=== PATIENT | male | born 1955 | race Caucasian/White ===

== ENCOUNTER 2019-08-06 07:35 | Day surgery (SDC) | payer OTHER, SELFPAY ==
[2019-08-06 08:10] VITALS: BP 146/73; PULSE 60; RESP 15; TEMP 36.6; O2SAT 97; BMI 35.9
[2019-08-06] MEDS: Lactated Ringers 1,000 ML 30 ML IV (08:28)
[2019-08-06] MEDS: Tetracaine 0.5% Ophthalmic Bottle 1 DRP OP (09:35)
[2019-08-06] MEDS: Povidone Iodine 30 ML Opthalmic Sol 1 DRP (09:35)
--- NOTE | 2019-08-06 10:08 | PCM.DC.CATCL ---
Allergies/Adverse Reactions: Allergies Sulfa (Sulfonamide Antibiotics) Allergy (Verified 08/06/19 08:10) PT NOT SURE Medications to take at Discharge Allopurinol [Zyloprim] 100 mg PO DAILYCM 07/12/16 Iron Carbonyl [Feosol] 65 mg PO DAILYCM 07/12/16 Levothyroxine [Synthroid] 125 mcg PO DAILY 07/12/16 Multivitamin [Daily Multiple Vitamin] 1 each PO DAILY 07/12/16 Sertraline HCl [Zoloft] 50 mg PO DAILY 07/12/16 Warfarin [Coumadin (PBKC)] 5 mg PO DAILY 07/12/16 Cataract Instructions: -Take a pain reliever such as Tylenol, Aspirin or Ibuprofen if needed for eye aching or pain. If this is not enough relief for you pain, call your doctor (or the doctor airconditioning plant operator), even at night. -You are scheduled for a follow-up appointment at [facility] the day after surgery. You should have someone drive you. -Transient pain and irritation are due to the incision that was made at the time of surgery and do not indicate any trouble. Our office numbers are . If there is no answer, or if it is after our normal business hours, call your surgeon. My home phone number is: Dr. Annabel Monahan INSTRUCTIONS FOLLOWING TOPICAL ANESTHETIC CATARACT SURGERY Protect operated eye with glasses or metal shield at all times. Instill one drop of Polytrim (or other antibiotic drop), one drop of Prednisolone and one drop of Acular in the operated eye four times a day (breakfast, lunch, dinner, and bedtime) until the doctor tells you to quit or decrease them. Wait 3-5 minutes between each drop. Please begin these immediately upon arriving at home. if your surgery is in t he afternoon, try to use the drops at least three more times the day of surgery and again the following morning before your appointment. INSTRUCTIONS FOLLOWING RETROBULBAR CATARACT SURGERY Keep the eye patch and metal shield on until you see your surgeon the day after surgery - these will be removed in the office that day. Do not drive while the patch is on your eye. You will be instructed about the use of drops for the operated eye at that visit. Primary Care Physician: Shekhar Williamson [Primary Care Provider] -
[2019-08-06 10:12] VITALS: BP 140/77; BP 146/73; PULSE 60; RESP 15; TEMP 36.2; O2SAT 97
[2019-08-06 10:15] VITALS: BP 138/78; BP 146/73; PULSE 60; RESP 15; O2SAT 95
[2019-08-06 10:20] VITALS: BP 141/79; BP 146/73; PULSE 60; RESP 15; O2SAT 95
[2019-08-06 10:24] VITALS: BP 122/71; BP 146/73; PULSE 60; RESP 15; TEMP 36.2; O2SAT 96
--- NOTE | 2019-08-06 10:27 | PCM.OPRPT ---
Report of Operation Date of Procedure: 08/06/19 Pre-Operative Diagnosis: Cataract Left Eye Post-Operative Diagnosis: same Surgery/Procedure Performed:: PEM IOL OS Description of Surgical Findings:: cataract Type of Anesthesia:: MAC and Topical Anesth Estimated Blood Loss (mL): none Description of Procedure: Indications for Procedure: 64 yo male with history of worsening vision in the left eye secondary to cataract. After discussion of the risks, benefit, alternatives, of cataract surgery the patient agreed to proceed. Description of Procedure: The patient was brought to the operating room where a time out was performed prior to the start of the procedure. Anesthesia team induced light sedation. The eye was prepped and draped in the normal sterile fashion for eye surgery. A brian blade was used to create a paracentesis incision. Preservative free lidocaine, followed by viscoat was instilled into the anterior chamber. A keratome was used to create a clear corneal biplanar incision at the temporal limbus. A cystotome was used to begin the capsulorhexis which was completed in a continuous curvilenear fashion with forceps. BSS on a patel cannula was used to hydrate beneath the lens capsule until the lens was noted to be freely mobile in the capsular bag. Phacoemulsification was used to remove the lens in a divide and conquer technique. The remaining cortical material was removed using irrigation and aspiration. The capsular bag was noted to be intact. provisc was used to inflate the capsular bag and a tecnis 19.5 diopter lens was placed into the capsular bag and adjusted using a mohit hook. The remaining viscoelastic was removed. The wounds were hydrated and noted to be watertight with a weck cell sponge. The patient was taken to the recovery room with instructions to follow up in the clinic the following day. - Complications none - Admit VTE Documentation Reason prophylaxis not ordered:: Procedure Not Indicated
[2019-08-06 11:00] VITALS: BP 146/73
== END 2019-08-06 11:00 | disposition home or self-care (01) ==
LOC: SDC 07:36 → AC 07:38
PROVIDERS: Family Provider Family Medicine; PCP Family Medicine; Referring Provider Ophthalmology; Visit Provider Ophthalmology
PROC: (CPT 66982; principal; 2019-08-06 09:20)
DX: H25.812 Combined forms of age-related cataract, left eye (principal); E11.9 Type 2 diabetes mellitus without complications; D64.9 Anemia, unspecified; F32.9 Major depressive disorder, single episode, unspecified; E06.9 Thyroiditis, unspecified; Z87.448 Personal history of other diseases of urinary system; Z87.891 Personal history of nicotine dependence; Z79.01 Long term (current) use of anticoagulants; Z79.899 Other long term (current) drug therapy
CPT/HCPCS: 66982; J7120

== ENCOUNTER → 2019-11-01 10:19 | Outpatient (CLI) | payer OTHER, SELFPAY ==
[2019-10-28 09:36] VITALS: BMI 38.6
[2019-11-01 11:14] LABS: Creat.Clear Total Volume 1450 mL
[2019-11-01 11:15] LABS: 24 Hour Urine Protein 1171.6 mg/24HR (<150 MG/24HR); 24HR. UA Prot. Total Volume 1450 mL; Creatinine Urine 93.3 mg/dL (NO RANGE EST.); Urine Protein (24 Hour) 80.8 mg/dL (<11.9)
[2019-11-01 11:16] LABS: 24H Urine Creat. Total Vol. 1.45 L; 24HR. Urine Creatinine 1.35 g/24 HR (0.90-2.10)
[2019-11-01 13:03] LABS: Creatinine, Serum 6.12 mg/dL (0.70-1.30); EST Glomerular Filtration Rate 10 mL/min (>60); Est Glom Filt Rate - Afr Amer 12 mL/min (>60)
[2019-11-01 13:22] LABS: Creatinine Clearance 15 ml/min (100-200); Creatinine Serum Creat 6.1 mg/dL (0.8-1.3); EST Glomerular Filtration Rate 10 mL/min (>60); Est Glom Filt Rate - Afr Amer 10 mL/min (>60)
[2019-11-04 14:08] LABS: Albumin, Ur 35.5 % (.); Alpha-1-Globulin, Ur 1.7 % (.); Beta Globulin, Ur 15.3 % (.); Gamma Globulin, Ur 39.5 % (.); Protein, 24Ur 784 mg/24 hr (30-150); Total Protein, Ur 54.1 mg/dL (Not Estab.)
[2019-11-04 20:34] LABS: M-Spike, Ur % Comment: % (Not Observed)
== END ==
PROVIDERS: PCP Family Medicine; Visit Provider Internal Medicine Hematology & Oncology
DX: C90.00 Multiple myeloma not having achieved remission (principal); D47.2 Monoclonal gammopathy; D64.9 Anemia, unspecified
CPT/HCPCS: 36415; 81050; 82565; 82570; 82575; 84156; 84166; 86335

== ENCOUNTER → 2019-11-03 14:11 | Outpatient (CLI) | payer OTHER, SELFPAY ==
[2019-10-28 09:36] VITALS: BMI 38.6
--- NOTE | 2019-11-03 14:20 | RAD_ITS ---
STUDY: X-RAY BONE SURVEY COMPLETE REASON FOR EXAM: Male, 64 years old. SUSPECT MYELOMA TECHNIQUE: One view of each long bone, 1 view of the hips and pelvis, 2 views lumbar spine, 2 views thoracic spine, 2 views cervical spine, 2 view skull, one view chest, 1 view abdomen. COMPARISON: None. FINDINGS: CHEST: The lungs are clear and expanded. Bilateral pleural thickening or access pleural fat. Cardiomegaly status post prior midline sternotomy. Right atrial and ventricular pacemaker leads present. Broad fatty mediastinum. Pulmonary venous congestion. Normal visualized aortic arch and descending thoracic aorta. Normal visualized ribs, clavicles, and shoulders. There is no demonstrated abnormality of the visualized soft tissue structures of the upper abdomen. PELVIS: There is a non-specific bowel gas pattern. Vascular calcifications. Degenerative changes of the sacroiliac joints. Normal visualized bilateral superior and inferior pubic rami. Normal pubic symphysis. Normal ischial tuberosities. Normal visualized right femoral head. Normal right acetabulum. There is mild articular joint space narrowing of the right hip. Normal visualized left femoral head. Normal left acetabulum. There is moderate articular joint space narrowing of the left hip. CERVICAL SPINE: Normal anterior atlantoaxial articulation. Normal odontoid process. Normal cervical lordosis. Normal vertebral bodies and endplates. Degenerative disc narrowing and spondylitic endplate changes at all cervical levels C2-C7. Negative for osteolytic or blastic bone lesion. The soft tissue structures are unremarkable. THORACIC SPINE: Normal kyphosis of the thoracic spine. There is no substantial scoliosis. Normal thoracic vertebrae and endplates. Diffuse moderate degenerative disc changes. The soft tissue structures are unremarkable. LUMBAR SPINE: There is straightening of the normal lumbar lordosis. There is no substantial scoliosis. Diffuse moderate degenerative disc narrowing and extensive spondylitic endplate changes at lumbar levels. The soft tissue structures are unremarkable. RIGHT FEMUR: Prior healed mid to distal diaphyseal fracture of the femur. No acute fracture deformity. Hypertrophic degenerative changes of the greater trochanter. Degenerative changes of the knee. Negative for osteolytic or blastic bone lesion. Normal right tibia and fibula. LEFT FEMUR: Normal visualized femur. Normal visualized soft tissue structure. Negative for osteolytic or blastic bone lesion. Normal left tibia and fibula. RIGHT HUMERUS :Normal visualized humerus. There is no demonstrated fracture or osseous destructive process. Normal right forearm. There is no demonstrated soft tissue abnormality. LEFT HUMERUS:Normal visualized humerus. There is no demonstrated fracture or osseous destructive process. Normal left forearm. There is no demonstrated soft tissue abnormality. SKULL: There is no demonstrated soft tissue swelling. Normal osseous calvarium. Negative for osteolytic or blastic bone lesion. Normal visualized facial bones. Normal visualized paranasal sinuses. RAD/Bone Survey Comp(Axial&Append) IMPRESSION: Negative for osteolytic or blastic bone lesion. Degenerative changes as stated above. Old right femur fracture healed. Electronically Signed: Marilyn Thornton MD at 21:37 EST , Service support ,
== END ==
PROVIDERS: PCP Family Medicine; Visit Provider Internal Medicine Hematology & Oncology
DX: D47.2 Monoclonal gammopathy (principal); D64.9 Anemia, unspecified; R89.9 Unspecified abnormal finding in specimens from other organs, systems and tissues
CPT/HCPCS: 77075

== ENCOUNTER → 2019-11-09 07:40 | Outpatient (CLI) | payer OTHER, SELFPAY ==
[2019-10-28 09:36] VITALS: BMI 38.6
[2019-11-09] VITALS (9 sets, daily range): BP systolic 128–176; BP diastolic 68–91; PULSE 60–62; RESP 14–16; TEMP 36.4; O2SAT 93–99; BMI 36.9
--- NOTE | 2019-11-09 | IMM_PTH ---
PATIENT: MACARENA BARRETT LOC: CT U#:[id number] AGE/SX: 70/M ROOM: RE11/09/[address]: Dr. Charis Worthy MD : 1955 BED: DIS: SPEC #: [id number] RECD: 11/10/19 14:04 STATUS: ANASTACIO REJuan #: [id number] COY: 11/09/19 00:[address]: Charis Worthy DEPT: IMMUNOHISTOCHEMISTRY RECD BY: Fidelina Bryant ENTERED: 11/10/19 14:05 SP TYPE: IMMUNO OTHR DR: Dr. Shekhar Williamson MD Tissues: A - Bone marrow of iliac crest B - Bone marrow of iliac crest Procedures: CD138 (initial) KAPPA (add) LAMBDA (add) PHYSICIAN & INSTITUTION [place] [id number] SPECIMEN INFORMATION: Tissue Source: A - Bone marrow biopsy, core, B - Bone marrow biopsy, clot Clinical Info: IGA-L, MGUS Specimen Number: [id number] A & B CPT code: 40332 x2, 63766 x4 METHODOLOGY: Deparaffinized sections of prefer/formalin-fixed tissue or PAP/DQ stained slides are incubated with monoclonal/polyclonal antibodies/oligonucleotide probes. Localization is made via biotin free immunoperoxidase method. Appropriate controls are performed and reacted as expected. Results on target cell population are indicated in the following table: RESULTS: ANTIBODY / CLONE RESULT Block A CD138 (B-A38) positive Kiana (polyclonal) negative Lambda (polyclonal) positive Block B CD138 (B-A38) positive Kiana (polyclonal) negative Lambda (polyclonal) positive These tests were developed and their performance characteristics determined by [facility]. They may not have been cleared or approved by the U.S. Food and Drug Administration. The FDA has determined that such clearance or approval is not necessary. The above immunohistochemical/dualISH markers are ordered and reviewed by the Pathologist. INTERPRETATION: A. Bone marrow biopsy, core: Consistent with involvement by plasma cell dyscrasia with lambda monoclonality, favor monoclonal gammopathy of undetermined significance. B. Bone marrow biopsy, clot: Consistent with involvement by plasma cell dyscrasia with lambda monoclonality, favor monoclonal gammopathy of undetermined significance. This case has been reviewed in consultation with Dr. Mckeon who concurs with the above diagnosis. SJ:issa 11/11/19
--- NOTE | 2019-11-09 | BMB_PTH ---
PATIENT: MACARENA BARRETT LOC: MS U#:[id number] AGE/SX: 70/M ROOM: RE11/09/[address]: Dr. Charis Worthy MD : 1955 BED: DIS: SPEC #: [id number] RECD: 11/09/19 10:22 STATUS: ANASTACIO REJuan #: [id number] COY: 11/09/19 00:[address]: Charis Worthy DEPT: BONE MARROW RECD BY: Anthony Florentino ENTERED: 11/09/19 10:23 SP TYPE: BMB OT DR: Dr. Shekhar Williamson MD Tissues: A - Bone marrow, NOS B - Bone marrow, NOS C - Bone marrow, NOS Procedures: Decalcification bone/plaque Bone Marrow Aspiration Bone Marrow Core Biopsy Iron Stain Bone Marrow HEADER OPERATION: Bone marrow biopsy and aspiration PRE-OP DIAGNOSIS: IGA-L, MGUS TISSUE SUBMITTED: A - Core, B - Clot, C - Smears, and send outs (flow, cytogenetics and FISH) BONE MARROW DIAGNOSIS Bone marrow biopsy, core, clot and aspirate smears: Consistent with involvement by plasma cell dyscrasia with lambda monoclonality, favor monoclonal gammopathy of undetermined significance. Iron - absent. Flow cytometry study from [facility] shows monotypic plasma cells, 1%, consistent with a plasma cell dyscrasia. The complete flow cytometry studies can be reviewed in patient's EMR. Cytogenetic and FISH studies are pending at this time. See comment. SJ:issa 11/13/19 COMMENT Immunohistochemistry ([id number]) supports the above diagnosis. Correlation with clinical findings and appropriate follow up are necessary. Case has been reviewed in consultation with Dr. Mckeon who concurs with the above diagnosis. IDC:AM BONE MARROW STUDY Slides are reviewed. CBC DATE: 11/09/19 WBC 4.4; RBC 4.69; HGB 12.4; HCT 40.2; MCV 85.7; RDW 16.4; PLTS 182,000 SEGS 67.7%; LYMPHS 18.5%; MONOS 11.0%; EOS 1.8%; BASOS 0.5% PERIPHERAL SMEAR: Submitted. RBC: Normocytic and normochromic. WBC: Unremarkable. The WBC count is compatible to as reported above. PLTS: Adequate. BONE MARROW ASPIRATE DIFFERENTIAL: Not performed ASPIRATE FINDINGS: Site: Not specified Aspicular, Hypocellular Comment: Aspirate smears show marked hemodilution. Erythroid and myeloid cells are noted. Megakaryocytes are not seen. Rare mature plasma cells are noted. Significant dysplastic changes are not seen. CORE BIOPSY FINDINGS: Site: Not specified Adequacy: Limited Cellularity: 50% M/E ratio: Within normal limits. Megakaryocytes: Present and adequate in number. Bony trabeculae: Only rare minute pieces of bone are noted. Granulomas: Absent. Lymphoid aggregate: Absent. Atypical infiltrate: Present. Comment: Immunohistochemistry ([id number]) shows increased number of monotypic plasma cells with lambda monoclonality and comprise about 5 - 10% of total nucleated cell population. Focal minimal clustering of plasma cells are also noted. ASPIRATE CLOT FINDINGS: Site: Not specified Marrow particles: Numerous Cellularity: 40% M/E ratio: Within normal limits. Megakaryocytes: Present and adequate in number. Granulomas: Absent. Lymphoid aggregates: Absent. Atypical infiltrates: Present. Comment: Immunohistochemistry ([id number]) shows increased number of monotypic plasma cells with lambda monoclonality and comprise about 5% of total nucleated cell population. Focal minimal clustering of plasma cells are also noted. SPECIAL STAINS WITH MATCHED CONTROLS: Iron: Absent. Aspirate smear stained with iron stain is aspicular. Reticulin: No significant increase of reticulin fibers is noted. PAS: Highlights myeloid cells and megakaryocytes. BONE MARROW GROSS A - Received is a container labeled with the patient's name and not further designated. The specimen consists of a minute piece of blood clot measuring 0.2 x 0.1 x <0.1 cm. The specimen is totally submitted in one cassette after decalcification. B - Received labeled with the patient's name and not further designated is a specimen that consists of approximately 8 cc of bloody fluid that on filtration yields multiple minute fragments of blood clots measuring in aggregate 3 x 2.5 x 0.3 cm. The specimen is totally submitted in one cassette. C - Also received are 27 unstained and 1 peripheral stained slides. The unstained slides are submitted for appropriate staining. Also received are two green top tubes which are sent to our reference lab for flow, cytogenetics and FISH. / SJ:rg 11/09/19 TC:5 CPT: 93487, 48894, 55217 x2, 39960 x, 09709 ADDENDUM ADDENDUM ADDENDUM ADDENDUM ADDENDUM ADDENDUM ADDENDUM ADDENDUM ADDENDUM ADDENDUM ADDENDUM ADDENDUM 12/02/2019 10:20 ADDENDUM 12/02/2019 10:20 ADDENDUM 12/02/2019 10:20 ADDENDUM 12/02/2019 10:20 ADDENDUM 12/02/2019 10:20 [facility] TEST: Chromosome, leukemia/lymphoma CYTOGENETIC RESULT: 46,XY[20] INTERPRETATION: Normal male karyotype was observed in twenty metaphases analyzed. TEST: Multiple myeloma FISH panel FISH RESULT: Positive for extra three signals from chromosomes 7, 9, 14 and 15 INTERPRETATION: Multiple myeloma related clone detected Please see complete report in e-chart or EMR for further details
--- NOTE | 2019-11-09 07:40 | CT_ITS ---
PROCEDURE: CT GUIDED BONE marrow biopsy and aspirate. DATE: November 09, 2019. INDICATION: Male, 64 years old. Monoclonal antibodies. PHYSICIAN: Jairo Ewing M.D. RADIATION DOSAGE (If Supplied By Facility): CTDIvol = ( 15.2 ) mGy, DLP = ( 336.42 ) mGycm. Dose optimization techniques were utilized. PROCEDURE: The risks, benefits, and alternatives to the procedure were explained to the patient. The specific risk of hemorrhage requiring further treatment or intervention was detailed and accepted. Follow-up instructions were discussed with the patient as well. Written informed consent was obtained. The patient was brought into the CT suite and placed in the prone position. . An appropriate entry site was identified. The overlying skin was prepped and draped in the usual sterile fashion. 1% lidocaine was administered subcutaneously for local anesthesia. Conscious sedation was performed. The patient received 3 mg of Versed and 75 mcg of fentanyl intravenously. Conscious sedation was started at 9:14 AM and terminated at 9:30 AM. The patient was independently monitored by the department nurse. Under CT guidance, a bone marrow biopsy and bone marrow aspirates were performed from the posterior aspect of the left iliac bone. The specimens were then placed in the appropriate fluid and transported to the laboratory for analysis. Hemostasis was obtained. The patient tolerated the procedure well without immediate complications. CT/Biopsy/Inj or Needle Placement IMPRESSION: Successful CT guided bone marrow biopsy and aspirate from the posterior aspect of the left iliac bone, as described above. The conscious sedation protocol was followed. Electronically Signed: Jairo Ewing, at 10:25 EST , Service support ,
[2019-11-09 08:12] LABS: International Normalized Ratio 1.4; Prothrombin Time (Protime)PT. 17.3 SECONDS (11.7-14.9)
[2019-11-09 08:13] LABS: Partial Thromboplast Time 34.3 Seconds (24.1-36.2)
[2019-11-09] MEDS: Midazolam 2 MG/2 ML Syringe IV ×2 (09:14→09:29)
[2019-11-09] MEDS: fentaNYL 100 MCG/2 ML Ampul IV ×2 (09:14→09:29)
[2019-11-09 10:14] LABS: Bone Marrow Aspiraton SEE PATHOLOGY REPORT
[2019-11-09 10:18] LABS: Absolute Lymphocyte Count 0.82 X10^3/uL (0.83-4.51); Basophil# 0.02 X10^3/uL; Basophil% 0.5 % (0-1); Eosinophil# 0.08 X10^3/uL; Eosinophils% 1.8 % (0-5); Hematocrit 40.2 % (40-54); Hemoglobin 12.4 g/dL (13.0-16.5); Lymphocyte # 0.82 X10^3/ul (4.0); Lymphocyte % 18.5 % (19-41); Mean Corp Hgb Conc 30.8 g/dL (32-36); Mean Corpuscular Hgb 26.4 pg (27.0-32.0); Mean Corpuscular Volume 85.7 fL (80-94); Mean Platelet Vol. 11.4 fl (6.2-12.0); Monocyte# 0.49 X10^3/uL; NRBC Flagged by Analyzer 0 % (0-5); Neutrophil # 3.01 X10^3/uL (2.7-7.7); Neutrophil % 67.7 % (47-70); Platelet Count 182 K/mm3 (150-450); RBC Distribution Width CV 16.4 % (11.6-14.6); Red Blood Count 4.69 M/mm3 (4.6-6.2); White Blood Count 4.4 K/mm3 (4.4-11.0)
== END ==
PROVIDERS: PCP Family Medicine; Referring Provider Internal Medicine Hematology & Oncology; Visit Provider Internal Medicine Hematology & Oncology
DX: D47.2 Monoclonal gammopathy (principal); E03.9 Hypothyroidism, unspecified; E11.22 Type 2 diabetes mellitus with diabetic chronic kidney disease; I12.9 Hypertensive chronic kidney disease with stage 1 through stage 4 chronic kidney disease, or unspecified chronic kidney disease; N18.9 Chronic kidney disease, unspecified; E87.2 Acidosis; J44.9 Chronic obstructive pulmonary disease, unspecified; I48.20 Chronic atrial fibrillation, unspecified; G47.33 Obstructive sleep apnea (adult) (pediatric); Z79.01 Long term (current) use of anticoagulants; Z79.899 Other long term (current) drug therapy; Z87.891 Personal history of nicotine dependence
CPT/HCPCS: 38222; 36415; 77012; 85025; 85610; 85730; 88305; 88311; 88313; 88341; 88342; 99156; J7040; A4216

== ENCOUNTER → 2020-05-10 11:38 | Outpatient (CLI) | payer OTHER, SELFPAY ==
[2020-05-10 11:38] VITALS: BMI 37.7
--- NOTE | 2020-05-10 11:39 | RAD_ITS ---
STUDY: X-RAY CHEST REASON FOR EXAM: Male, 65 years old. FLUID IN LUNGS, SHORTNESS OF BREATH TECHNIQUE: Frontal and lateral views of the chest. COMPARISON: None. FINDINGS: There are chronic fibrotic changes of the lung bases. There is no demonstrated pleural abnormality. Normal size heart. Normal mediastinum and arleen. Normal visualized pulmonary arteries. Normal visualized aortic arch and descending thoracic aorta. There are diffuse degenerative changes of the visualized thoracic spine. There is degenerative osteoarthritis of the bilateral shoulders. There is no demonstrated abnormality of the visualized soft tissue structures of the upper abdomen. RAD/Chest PA and Lateral IMPRESSION: Degenerative changes, as described above. No demonstrated acute cardiopulmonary process. Electronically Signed: Raul Herrmann, at 12:33 EDT Tel , Service support ,
== END ==
PROVIDERS: PCP Family Medicine; Referring Provider Surgery; Visit Provider Surgery
DX: R09.89 Other specified symptoms and signs involving the circulatory and respiratory systems (principal)
CPT/HCPCS: 71046

== ENCOUNTER 2020-05-27 07:06 | Day surgery (SDC) | payer OTHER, SELFPAY ==
[2020-05-10 11:38] VITALS: BMI 37.7
[2020-05-27] VITALS (9 sets, daily range): BP systolic 102–127; BP diastolic 54–69; PULSE 60–88; RESP 16–18; TEMP 36.1–36.5; O2SAT 85–94; BMI 36.6
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
[2020-05-27] MEDS: Lactated Ringers 1,000 ML 100 ML IV (07:48)
--- NOTE | 2020-05-27 08:15 | EGD_PTH ---
PATIENT: MACARENA BARRETT LOC: [facility] U#:[id number] AGE/SX: 65/M ROOM: RE05/27/[address]: Dr. Cliff Sabillon MD : 1955 BED: DIS: 05/27/2020 SPEC #: [id number] RECD: 05/27/20 12:06 STATUS: ANASTACIO SARAH #: [id number] COY: 05/27/20 08:[address]: Cliff Sabillon DEPT: SURGICAL PATHOLOGY RECD BY: Anthony Florentino ENTERED: 05/27/20 13:05 SP TYPE: EGD BIOPSY OTHR DR: Dr. Shekhar Williamson MD Tissues: A - Gastric mucous membrane B - COLON BIOPSY Procedures: Surgery Specimen Level IV HEADER OPERATION: Colonoscopy, EGD ([facility] [place] PRE-OP DIAGNOSIS: Iron deficiency anemia TISSUE SUBMITTED: A - Antrum biopsy from histo and H. pylori, B - Granulation tissue right colonic anastomosis MICROSCOPIC DIAGNOSIS A. Gastric antrum, biopsy: Moderate chronic gastritis with focal benign histiocytic reaction. B. Right colon anastomosis, granulation, biopsy: Granulation with acute and chronic inflammation and associated reactive epithelial change. Fecal debris. AM:issa 05/31/20 COMMENT A. The results of immunohistochemistry for Helicobacter pylori will be reported separately ([id number]). MICROSCOPIC DESCRIPTION Slides are reviewed. GROSS DESCRIPTION A - Received in fixative is one container labeled with the patient's name and designated antrum biopsy. The specimen consists of one irregular fragment of light tolbert soft tissue that measures 0.3 x 0.3 x 0.1 cm. The specimen is totally submitted in one cassette. B - Received in fixative is one container labeled with the patient's name and designated granulation tissue right anastomosis. The specimen consists of multiple irregular fragments of tolbert soft tissue mixed with fecal material that in aggregate measure 2 x 1 x 0.2 cm. The specimen is totally submitted in one cassette. / SJ:issa 05/27/20 TC:2 CPT: 28845 x2
--- NOTE | 2020-05-27 08:15 | IMM_PTH ---
PATIENT: MACARENA BARRETT LOC: [facility] U#:[id number] AGE/SX: 65/M ROOM: RE05/27/[address]: Dr. Cliff Sabillon MD : 1955 BED: DIS: 05/27/2020 SPEC #: [id number] RECD: 05/27/20 13:19 STATUS: ANASTACIO REQ #: [id number] COY: 05/27/20 08:[address]: Cliff Sabillon DEPT: IMMUNOHISTOCHEMISTRY RECD BY: Fidelina Bryant ENTERED: 05/27/20 13:20 SP TYPE: IMMUNO OTHR DR: Dr. Shekhar Williamson MD Tissues: A - Stomach, NOS Procedures: H Pylori (initial) PHYSICIAN & INSTITUTION [place] [id number] SPECIMEN INFORMATION: Tissue Source: A - Antrum biopsy Clinical Info: Iron deficiency anemia Specimen Number: [id number] CPT code: 02283 METHODOLOGY: Deparaffinized sections of prefer/formalin-fixed tissue or PAP/DQ stained slides are incubated with monoclonal/polyclonal antibodies/oligonucleotide probes. Localization is made via biotin free immunoperoxidase method. Appropriate controls are performed and reacted as expected. Results on target cell population are indicated in the following table: RESULTS: ANTIBODY / CLONE RESULT Block A H Pylori (polyclonal) negative These tests were developed and their performance characteristics determined by [facility]. They may not have been cleared or approved by the U.S. Food and Drug Administration. The FDA has determined that such clearance or approval is not necessary. INTERPRETATION: A. antrum biopsy: Negative for Helicobacter pylori organisms. AM:issa 05/31/20
--- NOTE | 2020-05-27 09:03 | OP.EGD_ITS ---
Patient Name: Zeb Stevenson Procedure Date: 05/27/2020 8:24 AM Date of : 1955 Age: 65 Procedure: Upper GI endoscopy Indications: Iron deficiency anemia Providers: Cliff Sabillon MD Referring MD: Shekhar Williamson Medicines: See the Anesthesia note for documentation of the administered medications Complications: No immediate complications. Procedure: Pre-Anesthesia Assessment: - Prior to the procedure, a History and Physical was performed, and patient medications and allergies were reviewed. The patient's tolerance of previous anesthesia was also reviewed. The risks and benefits of the procedure and the sedation options and risks were discussed with the patient. All questions were answered, and informed consent was obtained. Prior Anticoagulants: The patient has taken Coumadin (warfarin), last dose was day of procedure. ASA Grade Assessment: III - A patient with severe systemic disease. After reviewing the risks and benefits, the patient was deemed in satisfactory condition to undergo the procedure. After obtaining informed consent, the endoscope was passed under direct vision. Throughout the procedure, the patient's blood pressure, pulse, and oxygen saturations were monitored continuously. The gastroscope was introduced through the mouth, and advanced to the second part of duodenum. The upper GI endoscopy was accomplished without difficulty. The patient tolerated the procedure well. Scope In: 8:33:31 AM Scope Out: 8:37:58 AM Total Procedure Duration Time 0 hours 4 minutes 27 seconds Findings: The examined esophagus was normal. A 1 cm hiatal hernia was present. Diffuse moderately erythematous mucosa without bleeding was found in the entire examined stomach. Biopsies were taken with a cold forceps for histology. The examined duodenum was normal. Impression: - Normal esophagus. - 1 cm hiatal hernia. - Erythematous mucosa in the stomach. Bile reflux extensively noted. Biopsied. - Normal examined duodenum. Recommendation: - Await pathology results. - Discharge patient to home. - Resume previous diet. - Continue present medications. - Use sucralfate tablets 1 gram PO QID. No bleeding identified. Bile reflux gastritis appears chronic Procedure Code(s): --- Professional --- 78892, Esophagogastroduodenoscopy, flexible, transoral; with biopsy, single or multiple Diagnosis Code(s): --- Professional --- K44.9, Diaphragmatic hernia without obstruction or gangrene K31.89, Other diseases of stomach and duodenum D50.9, Iron deficiency anemia, unspecified CPT copyright 2017 [employer]. All rights reserved. The codes documented in this report are preliminary and upon airport security screener review may be revised to meet current compliance requirements. Cliff Sabillon MD 05/27/2020 9:03:35 AM This report has been signed electronically. Number of Addenda: 0 Note Initiated On: 05/27/2020 8:24 AM
--- NOTE | 2020-05-27 09:04 | OP.CCLET_ITS ---
05/27/2020 Charis Worthy [address] [place] [address] Re : Upper GI endoscopy procedure for Zeb Stevenson Dear Dr. Worthy This procedure was performed on Wednesday, May 27, 2020. My impressions and recommendations are as follows: Impressions : - Normal esophagus. - 1 cm hiatal hernia. - Erythematous mucosa in the stomach. Bile reflux extensively noted. Biopsied. - Normal examined duodenum. Recommendations : - Await pathology results. - Discharge patient to home. - Resume previous diet. - Continue present medications. - Use sucralfate tablets 1 gram PO QID. No bleeding identified. Bile reflux gastritis appears chronic My findings are described in the full procedure note, which is enclosed. If I can be of further assistance, please feel free to contact me at Doctor phone number(s): Work: . Sincerely, Cliff Sabillon MD 05/27/2020 9:03:35 AM This report has been signed electronically.
--- NOTE | 2020-05-27 09:13 | OP.COLON_ITS ---
Patient Name: Zeb Stevenson Procedure Date: 05/27/2020 8:38 AM Date of : 1955 Age: 65 Procedure: Colonoscopy Indications: Iron deficiency anemia Providers: Cliff Sabillon MD Referring MD: Shekhar Williamson Medicines: See the Anesthesia note for documentation of the administered medications Patient Profile: Last Colonoscopy: date unknown. Complications: No immediate complications. Procedure: Pre-Anesthesia Assessment: - Prior to the procedure, a History and Physical was performed, and patient medications and allergies were reviewed. The patient's tolerance of previous anesthesia was also reviewed. The risks and benefits of the procedure and the sedation options and risks were discussed with the patient. All questions were answered, and informed consent was obtained. Prior Anticoagulants: The patient has taken Coumadin (warfarin), last dose was day of procedure. ASA Grade Assessment: III - A patient with severe systemic disease. After reviewing the risks and benefits, the patient was deemed in satisfactory condition to undergo the procedure. After I obtained informed consent, the scope was passed under direct vision. Throughout the procedure, the patient's blood pressure, pulse, and oxygen saturations were monitored continuously. The adult colonoscope was introduced through the anus and advanced to the ileocolonic anastomosis. The colonoscopy was performed with moderate difficulty due to inadequate bowel prep. The patient tolerated the procedure well. The quality of the bowel preparation was unsatisfactory. Ileocolonic anastomosis were photographed. Scope In: 8:40:30 AM Scope Withdrawal Time 0 hours 9 minutes 2 seconds Scope Out: 8:53:34 AM Total Procedure Duration Time 0 hours 13 minutes 4 seconds Findings: Hemorrhoids were found on perianal exam. There was evidence of a prior end-to-end ileo-colonic anastomosis in the proximal ascending colon. This was patent and was characterized by inflammation. A single suture granuloma was found in the proximal ascending colon. Hot snare removal Impression: - Preparation of the colon was unsatisfactory. - Hemorrhoids found on perianal exam. - Patent end-to-end ileo-colonic anastomosis, characterized by inflammation/granulation tissue - Suture granuloma in the proximal ascending colon removed with a hot snare. Resected and retrieved. Recommendation: - Telephone my office for pathology results in 1 week. - Discharge patient to home. - Resume previous diet. - Continue present medications. - Repeat colonoscopy date to be determined after pending pathology results are reviewed for surveillance. Inadquate bowel prep. No obvious blood loss site. High risk pt. I do not believe a repeat attempt will add value to his current clinical treatment. If his health improves then could consider a repeat attempt Procedure Code(s): --- Professional --- 65878, Colonoscopy, flexible; with removal of tumor(s), polyp(s), or other lesion(s) by snare technique Diagnosis Code(s): --- Professional --- K64.9, Unspecified hemorrhoids Z98.0, Intestinal bypass and anastomosis status T81.89XA, Other complications of procedures, not elsewhere classified, initial encounter D12.2, Benign neoplasm of ascending colon D50.9, Iron deficiency anemia, unspecified CPT copyright 2017 [place] [employer] [place] [employer]. All rights reserved. The codes documented in this report are preliminary and upon activities director scouting review may be revised to meet current compliance requirements. Cliff Sabillon MD 05/27/2020 9:13:28 AM This report has been signed electronically. Number of Addenda: 0 Note Initiated On: 05/27/2020 8:38 AM
--- NOTE | 2020-05-27 09:14 | OP.CCLET_ITS ---
05/27/2020 Charis Worthy [address] [place] [address] Re : Colonoscopy procedure for Zeb Pedersencamron Dear Dr. Worthy This procedure was performed on Wednesday, May 27, 2020. My impressions and recommendations are as follows: Impressions : - Preparation of the colon was unsatisfactory. - Hemorrhoids found on perianal exam. - Patent end-to-end ileo-colonic anastomosis, characterized by inflammation/granulation tissue - Suture granuloma in the proximal ascending colon removed with a hot snare. Resected and retrieved. Recommendations : - Telephone my office for pathology results in 1 week. - Discharge patient to home. - Resume previous diet. - Continue present medications. - Repeat colonoscopy date to be determined after pending pathology results are reviewed for surveillance. Inadquate bowel prep. No obvious blood loss site. High risk pt. I do not believe a repeat attempt will add value to his current clinical treatment. If his health improves then could consider a repeat attempt My findings are described in the full procedure note, which is enclosed. If I can be of further assistance, please feel free to contact me at Doctor phone number(s): Work: . Sincerely, Cliff Sabillon MD 05/27/2020 9:13:28 AM This report has been signed electronically.
[2020-05-27 11:11] LABS: Prothrombin Time Fingerstick 36.5 SEC (11.9-14.4)
== END 2020-05-27 10:01 | disposition home or self-care (01) ==
LOC: EN 07:06 → AC 07:07
PROVIDERS: Anesthesiology; PCP Family Medicine; Referring Provider Family Medicine; Visit Provider Surgery
PROC: 0DJD8ZZ Inspection of Lower Intestinal Tract, Via Natural or Artificial Opening Endoscopic (ICD-10-PCS; CPT 45378; principal; 2020-05-27 08:10)
DX: K29.50 Unspecified chronic gastritis without bleeding (principal); K44.9 Diaphragmatic hernia without obstruction or gangrene; K21.9 Gastro-esophageal reflux disease without esophagitis; D50.9 Iron deficiency anemia, unspecified; K64.9 Unspecified hemorrhoids; Z98.0 Intestinal bypass and anastomosis status; K63.89 Other specified diseases of intestine; Z11.59 Encounter for screening for other viral diseases; D47.2 Monoclonal gammopathy; E11.22 Type 2 diabetes mellitus with diabetic chronic kidney disease; I13.0 Hypertensive heart and chronic kidney disease with heart failure and stage 1 through stage 4 chronic kidney disease, or unspecified chronic kidney disease; N18.4 Chronic kidney disease, stage 4 (severe); I50.9 Heart failure, unspecified; G47.33 Obstructive sleep apnea (adult) (pediatric); Z91.19 Patient's noncompliance with other medical treatment and regimen; E03.9 Hypothyroidism, unspecified; E78.00 Pure hypercholesterolemia, unspecified; J44.9 Chronic obstructive pulmonary disease, unspecified; I48.20 Chronic atrial fibrillation, unspecified; Z95.0 Presence of cardiac pacemaker; Z95.2 Presence of prosthetic heart valve; Z79.01 Long term (current) use of anticoagulants; Z79.899 Other long term (current) drug therapy; Z87.891 Personal history of nicotine dependence
CPT/HCPCS: 43239; 45385; 36416; 85610; 87635; 88305; 88342; 94799; J7120; J2405; U0003

== ENCOUNTER → 2020-10-13 08:12 | Outpatient (CLI) | payer OTHER, SELFPAY ==
[2020-05-27 07:31] VITALS: BMI 36.6
--- NOTE | 2020-10-13 08:18 | AVDS_ITS ---
Reason For Study: Stenosis of vascular prosthetic device, ESRD RIGHT Inflow, Radial artery, 253.2/147.4 cm/sec. Inflow, Radial artery, 495.2 ml/min. Prox anastomosis, 559.8/319.7 cm/sec. Prox anastomosis, 882.6 ml/min. Prox graft, 229.9/120.1 cm/sec. Prox graft, 1385 ml/min. Mid graft, 97.9/61.4 cm/sec. Mid graft, 1077 ml/min. Distal graft, 79.6/46.8 cm/sec. Distal graft, 732.8 ml/min. Outflow, Cephalic vein, 12.4 cm/sec. Outflow, Cephalic vein, 23.3 ml/min. Basilic vein, above AC, 76.5/38 cm/sec. Basilic vein, above AC, 936.2 ml/min. Interpretation Summary Patent AVF with diameters 3.1 at anst then 7, 8, 6.9mm. outflow 3.1 mm but basilic outflow 8.1mm with improved flow. Flow radial 500. Ordering Physician: Oswald Springer Referring Physician: Shekhar Williamson MD Performed By: Lissy Sol T
== END ==
PROVIDERS: PCP Family Medicine; Referring Provider Surgery Vascular Surgery; Visit Provider Surgery Vascular Surgery
DX: I13.11 Hypertensive heart and chronic kidney disease without heart failure, with stage 5 chronic kidney disease, or end stage renal disease (principal); N18.6 End stage renal disease; E07.9 Disorder of thyroid, unspecified; B19.20 Unspecified viral hepatitis C without hepatic coma; E03.9 Hypothyroidism, unspecified; I48.91 Unspecified atrial fibrillation; J44.9 Chronic obstructive pulmonary disease, unspecified; E78.00 Pure hypercholesterolemia, unspecified; Z95.2 Presence of prosthetic heart valve; Z95.0 Presence of cardiac pacemaker
CPT/HCPCS: 93990

== ENCOUNTER 2022-06-25 08:04 | Observation (INO) | payer OTHER, MEDICARE, SELFPAY ==
[2022-06-25] VITALS (13 sets, daily range): BP systolic 86–140; BP diastolic 51–82; PULSE 60–75; RESP 16–20; TEMP 36.4–36.6; O2SAT 64–100; BMI 37.9; BMI 37.4
--- NOTE | 2022-06-25 08:18 | EKG12_ITS ---
Test Reason : SOB Blood Pressure : / mmHG Vent. Rate : 060 BPM Atrial Rate : 060 BPM P-R Int : 274 ms QRS Dur : 100 ms QT Int : 426 ms P-R-T Axes : 000 080 065 degrees QTc Int : 426 ms Atrial-paced rhythm with prolonged AV conduction Low voltage QRS Abnormal ECG Confirmed by LEIGH ANN DANIELS, LUDA ([id number]), editorial specialist ALLA WELLS ([id number]) on 06/27/2022 9:20:13 AM Referred By: JAVIER Confirmed By:LDUA BELTRÁN MD
--- NOTE | 2022-06-25 08:18 | RAD_ITS ---
STUDY: X-RAY CHEST REASON FOR EXAM: Male, 67 years old. Dyspnea, hypoxia and bilateral rales TECHNIQUE: Single AP portable view of the chest. COMPARISON: Comparison is made with prior study 05/10/2020. FINDINGS: EKG electrodes are seen. There is evidence of vascular congestion and mild CHF superimposed on bibasilar scarring. Blunting of both costophrenic angles. Sternal cerclage wires are present from a prior sternotomy. Prior mitral valve replacement. A left-sided dual-chamber pacemaker is seen. Normal mediastinum and arleen. Normal visualized pulmonary arteries. There is atherosclerotic tortuosity of the aortic arch and descending thoracic aorta. Normal visualized thoracic spine. Normal visualized ribs, clavicles, and shoulders. There is no demonstrated abnormality of the visualized soft tissue structures of the upper abdomen. RAD/Chest 1 View (Portable) IMPRESSION: Mild CHF superimposed on bibasilar scarring. Blunting of both costophrenic angles. Electronically Signed: Jairo Ewing MD at 8:56 EDT ,
--- NOTE | 2022-06-25 08:20 | ED.VIS.DYS ---
HPI History of Present Illness Chief Complaint: Shortness of Breath Informant: patient and spouse/S.O. Onset/Context/Timing Onset: Weeks Context: gradual Timing: Continuous Quality: Positive for Dyspnea on exertion and Orthopnea (Two-pillow); Negative for PND or Wheezing Current Severity: Mild Maximum Severity: Severe Worsened by: Exertion and Lying flat Relieved by: Nothing and - (Shortness of breath improved with oxygen.) Associated Symptoms cough; Negative for rhinorrhea, post nasal drip, ear pain, fever, sore throat, subjective, chills, sweats, clear sputum, white sputum, yellow sputum or green sputum Chest Pain: Positive for None Narrative Narrative: Patient is a 67-year-old male with chronic renal failure on hemodialysis Saturday, Saturday and Saturday. He had no significant weight gain since Saturday. The shortness of breath is gradually gotten worse over the past 2 to 3 weeks. He does endorse two-pillow orthopnea. He does endorse mild edema of his legs. He denies chest discomfort, pressure, tightness or heaviness. He denies any type of pain. There is no history of PE or DVT. He denies fever, chills night sweats. He denies ocular, visual or auditory symptoms. He denies GI symptoms. He is status postcholecystectomy and appendectomy. He denies fever, chills night sweats. PE Risk Factors: Negative for Cancer, OCP + Smoking + > 35, Prior DVT or PE, Recent immobilization, Recent surgery or Recent travel Prior similar symptoms: Yes Recent Illness/Hospitalization: No [facility] Medical History Atrial flutter Chronic atrial fibrillation Chronic kidney disease COPD (chronic obstructive pulmonary disease) CRF (chronic renal failure) Diabetes mellitus Hypercalcemia Hypertension Hypertension Hypothyroidism Iron deficiency anemia Metabolic acidosis Obstructive sleep apnea Sleep apnea Home Medications allopurinol 100 mg tablet 100 mg PO DAILYCM 07/12/16 [History Last Taken Unknown] levothyroxine 125 mcg tablet 200 mcg PO DAILY 07/12/16 [History Last Taken Unknown] sertraline 50 mg tablet 50 mg PO DAILY 07/12/16 [History Last Taken Unknown] warfarin 5 mg tablet 5 mg PO VELEZ 07/12/16 [History Last Taken Unknown] warfarin 7.5 mg tablet 7.5 mg PO MOTUWETHFRSA 11/09/19 [History Last Taken 05/23/20] iron 40 mg capsule 65 mg PO DAILY 06/25/22 [History Last Taken Unknown] midodrine 10 mg tablet 10 mg PO QODAY 06/25/22 [History Last Taken Unknown] sevelamer HCl 800 mg tablet 800 mg PO DAILY 06/25/22 [History Last Taken Unknown] vitamin B complex and vitamin C no.20-folic acid 1 mg capsule (Triphrocaps) 1 cap PO DAILY 06/25/22 [History Last Taken Unknown] Allergy/AdvReac Type Severity Reaction Status Date / Time Sulfa (Sulfonamide Allergy Intermediate PT NOT SURE Verified 06/25/22 08:09 Antibiotics) Family History Other Family history not known due to adoption Surgical History History of appendectomy History of back surgery History of neck surgery Hx of cholecystectomy Social History (Updated 06/25/22 @ 08:[address] Tj Hooks MD) household members: spouse Smoking Status: Former smoker substance use type: does not use ROS ROS ED Constitutional Constitutional ED: Denies chills, fever(s), sweats or weight loss Eyes Eyes: Denies blurry vision, change in vision or diplopia ENT ENT ED: Denies ear pain, rhinorrhea or sore throat Cardiovascular Cardiovascular: Reports orthopnea; Denies chest pain, palpitations, paroxysmal nocturnal dyspnea or racing heartbeat Respiratory/Chest Respiratory/Chest: Reports dyspnea, dyspnea on exertion and orthopnea; Denies cough or paroxysmal nocturnal dyspnea Gastrointestinal Gastrointestinal: Reports other Details: He denies change in color, consistency or caliber of his stool. ; Denies abdominal pain, constipation, diarrhea, melena, nausea or vomiting Genitourinary Genitourinary ED: Reports other Details: On hemodialysis Musculoskeletal Musculoskeletal: Denies arthralgias, back pain, myalgias or neck pain Integumentary Denies Abrasions or rash Neurologic Neurologic: Denies headache(s), paresthesias or weakness Endocrine Endocrinology: Denies cold intolerance or heat intolerance Hematologic/Lymphatic Hematologic/Lymphatic: Denies easy bleeding or easy bruising EXAM Physical Exam Const Vital Signs: 06/25/22 08:05 06/25/22 08:07 06/25/22 08:34 Temperature 97.9 F 97.9 F Temperature Source Oral Oral Pulse Rate 60 62 Respiratory Rate 20 H 20 H Respiratory Effort Short of Breath Accessory Muscle Use Respiratory Pattern Tachypnea Blood Pressure 140/82 H 140/82 H Blood Pressure Mean 101 101 Pulse Ox 64 98 Oxygen Delivery Method Room Air Nasal Cannula Nasal Cannula Oxygen Flow Rate (L/min) 5 6 06/25/22 09:35 Temperature 97.5 F L Temperature Source Oral Pulse Rate 62 Respiratory Rate 18 Respiratory Effort Respiratory Pattern Blood Pressure 116/70 Blood Pressure Mean 85 Pulse Ox 100 Oxygen Delivery Method Nasal Cannula Oxygen Flow Rate (L/min) 6 Positive well nourished, well developed and obese; Negative for cachectic, contractures or unkempt Constitutional Narrative: Patient is tachypneic. There is no labored breathing. General Appearance ED: well developed; Negative for unkempt, cachectic, contractures, NAD or pallor Nutritional Appearance: obese; Negative for cachectic HEENT Reports moist mucous membranes HEENT Narrative: Head is normocephalic. Ears normal. Nares patent. Uvula midline. No deviation with protrusion. No erythema or exudate of the posterior pharynx. atraumatic Eyes PERRL and EOMs intact bilaterally General Eye ED: Negative for pale conjunctiva or scleral icterus Neck no lymphadenopathy, supple, no meningeal signs and no JVD Neck Narrative: Trachea is midline. Resp normal respiratory effort and No clear to auscultation bilaterally Auscultation: rales bilateral 1/[address] way up Cardio regular rate, regular rhythm and no murmurs Cardio Narrative: There is a mechanical sound noted over the mitral listening area. GI non-tender, non-distended and no masses Auscultation: normoactive bowel sounds Palpation: soft Back/Spine no CVA tenderness Back/Spine Narrative: Mid dorsal midline surgical scar noted and midline lumbar surgical scar noted. Due to biopsy of bone when patient was septic with osteomyelitis and fractured back as a child respectively. Extremity Negative for normal to inspection Extremity Narrative: There is stigmata of peripheral arterial disease noted. General Extremety ED: Yes edema and other findings; Negative for tenderness General Extremity: edema and other findings Neuro No oriented x3, CN's II-XII intact bilaterally and no sensory deficits noted [place] Coma Scale: document GCS findings Spontaneous Obeys Commands Confused 14 Sensorium / Orientation: alert Psych mental status grossly normal Appearance: Negative for unkempt Attitude: No agitated Mood & Affect: Negative for anxious Thought Process: normal thought process Skin no wounds General Skin Exam: Negative for jaundice or pallor Lesions: no lesions Rashes: no rashes MDM MDM MDM Narrative Medical decision making narrative: Patient's pulse ox was 79%. Patient is on continuous oxygen at home at 3 L. He is present on 6 L. The fact that he is due for dialysis today and there is rales noted bilaterally suspect patient is fluid overloaded. EKG was obtained to rule out acute ischemia. Monitor reveals a paced rhythm. CBC to assess white count and H&H. Basic metabolic panel to assess electrolytes since he will require dialysis in all likelihood emergently. Potassium is slightly elevated 5.8. This was not treated since there is no EKG changes and patient will require dialysis. This can be corrected during dialysis. Lab Data Attestation: I reviewed the patient's lab results. Lab results narrative: White count is unremarkable. Patient is mildly anemic and at baseline. Electrolyte panel remarkable for potassium of 5.8. Creatinine is 11.7 and BUN is 93. This is consistent with patient who has not had dialysis since Saturday. Labs: Laboratory Results - last 24 hr 06/25/22 06/25/22 06/25/22 08:10 08:10 08:10 WBC 9.1 RBC 3.72 L Hgb 11.6 L Hct 38.1 L MCV 102.4 H MCH 31.2 MCHC 30.4 L RDW Std Deviation 54.2 H RDW Coeff of Dominique 14.6 Plt Count 207 MPV 10.5 Immature Gran % (Auto) 0.800 Neut % (Auto) 81.6 H Lymph % (Auto) 8.5 L [place] % (Auto) 7.9 Eos % (Auto) 0.9 Baso % (Auto) 0.3 Absolute Neuts (auto) 7.4 Absolute Lymphs (auto) 0.77 L Nucleated RBC % 0 PT 33.2 H INR 3.3 Sodium 135 L Potassium 5.8 H Chloride 97 L Carbon Dioxide 25.0 Anion Gap 13 BUN 93 H Creatinine 11.70 H* Estim Creat Clear Calc 6.33 Est GFR (MDRD) Af Amer 6 L Est GFR (MDRD) Non-Af 5 L BUN/Creatinine Ratio 7.9 L Glucose 120 H Calcium 8.7 Radiography Chest X-Ray - ED: 1 View, Read by ED Physician (Single view portable chest x-ray was interpreted by me. Patient has a torturous aorta. Cardiac size is within normal limits. There is no blunting of the cardiac margins. There is mild pleural effusions noted. There is also evidence of fluid overload.) and Read by Radiologist (The film was independently reviewed and interpreted by me at 0851) Diagnostic Testing: Clinical Impression(s) from Imaging Studies Chest X-Ray 06/25/22 08:18 IMPRESSION: Mild CHF superimposed on bibasilar scarring. Blunting of both costophrenic angles. Electronically Signed: Jairo Ewing MD at 8:56 EDT , EKG Initial EKG: Interpretation: Paced (Atrial paced rhythm. Ventricular rate is 60. NM interval is prolonged at 274 ms. QRS durations 100 ms. QT duration 426 ms. There is evidence of low voltage. EKG is abnormal.) Critical Care Time Critical Care Time: Yes Critical care time (excluding procedures): 30-74 minutes (31), Including time spent: (History, physical, documentation, review of prior records, arrangements for dialysis), Discussing w/Patient &/or Family/Nursing Teacher, Discussing w/Consultants and Arranging Admission or Transfer Discharge Plan Triage Chief Complaint: Shortness of Breath ED Provider: Tj Hooks Dx/Rx/DC Orders Clinical Impression: Acute and chronic respiratory failure with hypoxia, Fluid overload, Acute hyperkalemia, Anemia due to chronic kidney disease, on chronic dialysis, Anticoagulant long-term use, H/O prosthetic mitral valve Prescriptions: No Action allopurinol 100 MG tablet 100 mg PO DAILYCM levothyroxine 125 MCG tablet 200 mcg PO DAILY warfarin 5 MG tablet 5 mg PO VELEZ sertraline 50 MG tablet 50 mg PO DAILY warfarin 7.5 MG tablet 7.5 mg PO MOTUWETHFRSA sevelamer HCl 800 mg Tablet 800 mg PO DAILY Rx Instructions: must administer with a meal/food Triphrocaps 1 mg Capsule 1 cap PO DAILY iron 40 mg Capsule 65 mg PO DAILY midodrine 10 mg Tablet 10 mg PO QODAY Rx Instructions: do not give last dose of day after 6PM or within 4 hrs of bedtime PRIOR TO DIALYSIS Primary Care Provider: Shekhar Williamson Referrals: Shekhar Williamson MD [Primary Care Provider] - Disposition Disposition: Acute Care [facility]
[2022-06-25 08:29] LABS: Absolute Lymphocyte Count 0.77 X10^3/uL (0.83-4.51); Absolute Neutrophil Count 7.4 X10^3/uL (2.0-7.7); Basophil# 0.03 X10^3/uL; Basophil% 0.3 % (0-1); Eosinophil# 0.08 X10^3/uL; Eosinophils% 0.9 % (0-5); Hematocrit 38.1 % (40-54); Hemoglobin 11.6 g/dL (13.0-16.5); Lymphocyte # 0.77 X10^3/ul (0.83-4.51); Lymphocyte % 8.5 % (19-41); Mean Corp Hgb Conc 30.4 g/dL (32-36); Mean Corpuscular Hgb 31.2 pg (27.0-32.0); Mean Corpuscular Volume 102.4 fL (80-94); Mean Platelet Vol. 10.5 fl (6.2-12.0); Monocyte# 0.72 X10^3/uL; Monocyte% 7.9 % (0-10); NRBC Flagged by Analyzer 0 % (0-5); Neutrophil % 81.6 % (47-70); Platelet Count 207 K/mm3 (150-450); RBC Distribution Width CV 14.6 % (11.6-14.6); RBC Distribution Width SD 54.2 fl (35.1-43.9); Red Blood Count 3.72 M/mm3 (4.6-6.2); White Blood Count 9.1 K/mm3 (4.4-11.0)
[2022-06-25 08:54] LABS: Anion Gap 13 (5-15); BUN 93 mg/dL (7-18); BUN/Creat Ratio 7.9 RATIO (10-20); Calcium,Total 8.7 mg/dL (8.5-10.1); Chloride 97 mmol/L (98-107); EST Glomerular Filtration Rate 5 mL/min (>60); Est Glom Filt Rate - Afr Amer 6 mL/min (>60); Estimated Creatinine Clearance 6.33 ml/min; Glucose 120 mg/dL (74-106); Potassium 5.8 mmol/L (3.5-5.1); Sodium Level 135 mmol/L (136-145)
[2022-06-25 09:13] LABS: International Normalized Ratio 3.3; Prothrombin Time (Protime)PT. 33.2 SECONDS (11.7-14.9)
--- NOTE | 2022-06-25 09:45 | NURSING ---
pcu obs simone acute on chronic resp failure w hypoxia, fluid overload
[2022-06-25] MEDS: Folic Acid/Vitamin B Comp W-C 1 Capsule 1 CAP PO (12:47)
[2022-06-25] MEDS: Levothyroxine 100 MCG Tablet 200 MCG PO (12:47)
[2022-06-25] MEDS: Sertraline 50 MG Tablet PO (12:47)
--- NOTE | 2022-06-25 13:21 | CON.PCM.RE_ITS ---
Assessment & Plan Assessment/Plan (1) Acute hyperkalemia: (2) ESRD (end stage renal disease): (3) Shortness of breath: (4) Anemia due to chronic kidney disease, on chronic dialysis: PLAN: Plan Patient presented to the ER with complaints of difficulty breathing, shortness of breath. COVID infection negative. Initial oxygen saturation in the emergency room 79%, patient is now on 6 L of O2, CXR showed mild fluid overload and potassium was slightly elevated at 5.8 therefore patient was admitted for further evaluation and treatment. We will plan for dialysis today over 3.5 hours on 2K bath attempting fluid removal as patient/blood pressure tolerates. Outpatient EDW 116 kg. We will evaluate dry weight during hospitalization and adjust as needed; possibly edw may need to be lowered. White count is unremarkable, hemoglobin is 11.6, patient does not need GEGE with dialysis today. We will continue to monitor hemoglobin trends. Current blood pressures are acceptable. He receives midodrine at start of dialysis. We will continue midodrine as ordered. Further orders forthcoming as hospitalization evolves. Thank you allowing us participate in the care of Mr. Stevenson. HPI Consult Data Date of Consult: 06/25/22 HPI Narrative HPI Narrative: MACARENA STEVENSON, is a 67 M who presented to the kidney center early this morning for his normal hemodialysis treatmend and had complaints of shortness of breath and difficulty breathing. There was concern for possible COVID related infection therefore patient's took him to the emergency room for further evaluation and treatment. Patient has past medical history significant for end-stage renal disease and currently dialyzes on a Saturday schedule in [place] followed by Dr. Cantu. Patient reports his last dialysis session was on Saturday. Patient also has past medical history significant for COPD, obstructive sleep apnea and states that he wears oxygen at home. Patient reports he had been without his oxygen this weekend. Denies any fevers or chills. Denies any chest pain. Work up in the ER: Pulse ox 79%, normal WBC, Hgb 11.6, K+ 5.8, CXR mild CHF. Patient was admitted for further evaluation and treatment. [facility] Medical History Atrial flutter Chronic atrial fibrillation Chronic kidney disease COPD (chronic obstructive pulmonary disease) CRF (chronic renal failure) Diabetes mellitus Hypercalcemia Hypertension Hypertension Hypothyroidism Iron deficiency anemia Metabolic acidosis Obstructive sleep apnea Sleep apnea Home Medications allopurinol 100 mg tablet 100 mg PO DAILYCM 07/12/16 [History Last Taken Unknow n] levothyroxine 125 mcg tablet 200 mcg PO DAILY 07/12/16 [History Last Taken Unknown] sertraline 50 mg tablet 50 mg PO DAILY 07/12/16 [History Last Taken Unknown] warfarin 5 mg tablet 5 mg PO VELEZ 07/12/16 [History Last Taken Unknown] warfarin 7.5 mg tablet 7.5 mg PO MOTUWETHFRSA 11/09/19 [History Last Taken 05/23/20] iron 40 mg capsule 65 mg PO DAILY 06/25/22 [History Last Taken Unknown] midodrine 10 mg tablet 10 mg PO QODAY 06/25/22 [History Last Taken Unknown] sevelamer HCl 800 mg tablet 800 mg PO DAILY 06/25/22 [History Last Taken Unknown] vitamin B complex and vitamin C no.20-folic acid 1 mg capsule (Triphrocaps) 1 cap PO DAILY 06/25/22 [History Last Taken Unknown] Allergy/AdvReac Type Severity Reaction Status Date / Time Sulfa (Sulfonamide Allergy Intermediate PT NOT SURE Verified 06/25/22 08:09 Antibiotics) Family History Other Family history not known due to adoption Surgical History History of appendectomy History of back surgery History of neck surgery Hx of cholecystectomy Social History (Updated 06/25/22 @ 08:[address] Tj Hooks MD) household members: spouse Smoking Status: Former smoker substance use type: does not use ROS ROS Narrative As per HPI and past medical history Physical Exam Narrative Const: Alert and oriented x3, no apparent distress Cardio: S1, S2, RRR Respiratory: Scattered rales noted anteriorly and posteriorly, no wheezing noted Abdomen: soft, nontender, rounded, positive bowel sounds x4 quadrants Extremities: Trace edema noted bilateral lower legs AV fistula right forearm positive thrill and bruit Lab / Micro Data Result Diagrams: 06/25/22 08:10 06/25/22 08:10 Labs: Laboratory Results - last 24 hr 06/25/22 08:10: WBC 9.1, RBC 3.72 L, Hgb 11.6 L, Hct 38.1 L, MCV 102.4 H, MCH 31.2, MCHC 30.4 L, RDW Std Deviation 54.2 H, RDW Coeff of Dominique 14.6, Plt Count 207, MPV 10.5, Immature Gran % (Auto) 0.800, Neut % (Auto) 81.6 H, Lymph % (Auto) 8.5 L, [place] % (Auto) 7.9, Eos % (Auto) 0.9, Baso % (Auto) 0.3, Absolute Neuts (auto) 7.4, Absolute Lymphs (auto) 0.77 L, Nucleated RBC % 0 06/25/22 08:10: PT 33.2 H, INR 3.3 06/25/22 08:10: Sodium 135 L, Potassium 5.8 H, Chloride 97 L, Carbon Dioxide 25.0, Anion Gap 13, BUN 93 H, Creatinine 11.70 H*, Estim Creat Clear Calc 6.33, Est GFR (MDRD) Af Amer 6 L, Est GFR (MDRD) Non-Af 5 L, BUN/Creatinine Ratio 7.9 L, Glucose 120 H, Calcium 8.7 Micro: Microbiology 06/25/22 09:55 Nasal Secretion SARS-CoV-2 Antigen (Rapid) - Final Radiology Impression Chest X-Ray 06/25/22 08:18 IMPRESSION: Mild CHF superimposed on bibasilar scarring. Blunting of both costophrenic angles. Electronically Signed: Jairo Ewing MD at 8:56 EDT ,
--- NOTE | 2022-06-25 14:22 | PCM.HP.STD ---
[facility] - General General Date of Admission: 06/25/22 Date of Service: 06/25/22 Chief Complaint: Shortness of breath HPI Narrative MACARENA BARRETT, is a 67 M who presented to the emergency department [facility] on 06/25/2022 with worsening shortness of breath. The patient is O2 dependent at baseline and wears 3 L. His states he supposed to wear it [id number] however they do not have a portable tank so he does not wear oxygen outside the house. He evidently has had ongoing worsening shortness of breath over the last 2 to 3 weeks but has not had the opportunity to take this up with his base brander. He is on dialysis at baseline and has been on dialysis since 2014. He is unclear what his dry weight is however he has not missed any dialysis sessions with his last session being on Saturday. At that time 4 L of fluid removed. He is on chronic midodrine therapy during dialysis secondary to hypotension and his does report his blood pressures are typically on the lower side. He has had no fever or chills. He has intermittent cough which is worse in the morning and productive of a white frothy sputum at that time however his cough usually subsides after he has been up for a while. He does have some orthopnea and paroxysmal nocturnal dyspnea. His is also concerned that he has obstructive sleep apnea however he has not been able to tolerate a test to diagnose this. He reported to his regular dialysis session today and was noted to be hypoxic and had to be placed on 6 L nasal cannula to maintain oxygen saturations greater than 88% and therefore was sent to the emergency department rather than receiving his regular scheduled dialysis. Upon presentation his temperature was 97.0, heart rate 69, blood pressure 102/56, respiratory rate 20, and oxygen saturation was 64% on room air. He was therefore placed on 6 L nasal cannula and oxygen saturations improved to 98 to 100%. His CBC shows a normal white count with a chronic stable anemia having a hemoglobin of 11.6. His INR was 3.3 which is in his therapeutic range of 2.5-3.5 for mechanical mitral valve. His serum sodium was 135, potassium 5.8, chloride 97 with a normal anion gap however his BUN was 93 and his serum creatinine was 11.7. Serum glucose was 120. His chest x-ray showed CHF with superimposed bibasilar scarring and blunting of both costophrenic angles he also appeared to have fluid in the fissure on the right side of his chest. Compared with previous studies this all appear to be new. His EKG shows an atrial paced rhythm with a ventricular rate of 60 and a prolonged OH interval with first-degree heart block with a QTC of 426 and low voltage but no signs of acute ischemia. I suspect the patient needs to be more aggressively dialyzed and possibly a new dry weight needs to be established. I discussed the case with Dr. Posey from nephrology and they will have him dialyzed today with possible ultrafiltration tomorrow. [facility] Medical History Atrial flutter Chronic atrial fibrillation Chronic kidney disease COPD (chronic obstructive pulmonary disease) CRF (chronic renal failure) Diabetes mellitus Hypercalcemia Hypertension Hypertension Hypothyroidism Iron deficiency anemia Metabolic acidosis Obstructive sleep apnea Sleep apnea Home Medications allopurinol 100 mg tablet 100 mg PO DAILYCM 07/12/16 [History Last Taken Unknown] levothyroxine 125 mcg tablet 200 mcg PO DAILY 07/12/16 [History Last Taken Unknown] sertraline 50 mg tablet 50 mg PO DAILY 07/12/16 [History Last Taken Unknown] warfarin 5 mg tablet 5 mg PO VELEZ 07/12/16 [History Last Taken Unknown] warfarin 7.5 mg tablet 7.5 mg PO MOTUWETHFRSA 11/09/19 [History Last Taken 05/23/20] iron 40 mg capsule 65 mg PO DAILY 06/25/22 [History Last Taken Unknown] midodrine 10 mg tablet 10 mg PO QODAY 06/25/22 [History Last Taken Unknown] sevelamer HCl 800 mg tablet 800 mg PO DAILY 06/25/22 [History Last Taken Unknown] vitamin B complex and vitamin C no.20-folic acid 1 mg capsule (Triphrocaps) 1 cap PO DAILY 06/25/22 [History Last Taken Unknown] Allergy/AdvReac Type Severity Reaction Status Date / Time Sulfa (Sulfonamide Allergy Intermediate PT NOT SURE Verified 06/25/22 08:09 Antibiotics) Family History Other Family history not known due to adoption Surgical History History of appendectomy History of back surgery History of neck surgery Hx of cholecystectomy Social History (Updated 06/25/22 @ 14:[address] 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 [id number] Smoking Status: Former smoker alcohol intake: never substance use type: does not use ROS Constitutional Constitutional: Denies anorexia, change in weight, chills, fatigue, fever(s), malaise, night sweats, weakness or other Eyes Eyes: Denies blurry vision, change in eye color, change in vision, discharge from eye(s), double vision, erythema, eye pain, loss of vision or other ENT HEENT: Reports abnormal hearing and hearing loss; Denies dysphagia, ear pain, epistaxis, headache(s), nasal congestion, nasal discharge, post nasal drip, sinus pressure, sore throat or other Cardiovascular Cardiovascular: Reports orthopnea and paroxysmal nocturnal dyspnea; Denies chest pain, claudication, dyspnea on exertion, edema, lightheadedness, palpitations, rapid heart rate, syncope or other Respiratory/Chest Respiratory/Chest: Reports cough, dyspnea, productive cough and shortness of breath with exertion; Denies excessive phlegm production, hemoptysis, shortness of breath at rest, wheezing or other Gastrointestinal Gastrointestinal: Denies abdominal pain, coffee ground emesis, constipation, diarrhea, dyspepsia, hematemesis, hematochezia, loose stools, melena, nausea, vomiting or other Genitourinary Genitourinary: Denies burning urination, difficulty urinating, dysuria, hematuria, nocturia, urinary frequency, urinary hesitancy, urinary incontinence, urinary urgency or other Musculoskeletal Musculoskeletal: Denies arthralgias, back pain, joint pain, joint stiffness, joint swelling, myalgias, neck pain or other Neurologic Neurologic: Denies abnormal gait, abnormal speech, confusion, disequilibrium, dizziness, focal weakness, headache(s), numbness, paresthesias, seizure-like activity, seizures, syncope, tingling, tremor(s) or other Psychiatric Psychiatric: Denies anxiety, depression, homicidal ideation, suicidal ideation or other Endocrine Endocrinology: Denies change in body appearance, cold intolerance, excessive sweating, heat intolerance, polydipsia, polyuria or other Hematologic/Lymphatic Hematologic/Lymphatic: Denies anemia, easy bleeding, easy bruising, lymphadenopathy or other Allergic/Immunologic Allergic/Immunologic: Denies rhinitis, hives, eczemia, asthma or other Vital Signs Vital Signs Vital Signs: 06/25/22 08:05 06/25/22 08:07 06/25/22 08:34 Temperature 97.9 F 97.9 F Temperature Source Oral Oral Pulse Rate 60 62 Respiratory Rate 20 H 20 H Respiratory Effort Short of Breath Accessory Muscle Use Respiratory Depth Respiratory Pattern Tachypnea Blood Pressure 140/82 H 140/82 H Blood Pressure Mean 101 101 Blood Pressure Source Blood Pressure Position Blood Pressure Location Pulse Ox 64 98 Oxygen Delivery Method Room Air Nasal Cannula Nasal Cannula Oxygen Flow Rate (L/min) 5 6 06/25/22 09:35 06/25/22 10:09 06/25/22 10:35 Temperature 97.5 F L 97.5 F L 97.6 F L Temperature Source Oral Temporal Oral Pulse Rate 62 62 62 Respiratory Rate 18 18 18 Respiratory Effort Respiratory Depth Respiratory Pattern Blood Pressure 116/70 116/70 108/66 Blood Pressure Mean 85 85 80 Blood Pressure Source Blood Pressure Position Blood Pressure Location Pulse Ox 100 100 100 Oxygen Delivery Method Nasal Cannula Nasal Cannula Oxygen Flow Rate (L/min) 6 6 06/25/22 10:35 06/25/22 10:50 06/25/22 10:31 Temperature 97.6 F L Temperature Source Oral Pulse Rate 62 75 Respiratory Rate 18 Respiratory Effort Respiratory Depth Respiratory Pattern Blood Pressure 108/66 Blood Pressure Mean 80 Blood Pressure Source Monitor Blood Pressure Position Semi-Fowlers Blood Pressure Location Left Arm Pulse Ox 100 96 Oxygen Delivery Method Nasal Cannula Nasal Cannula Oxygen Flow Rate (L/min) 6 5 06/25/22 10:58 Temperature Temperature Source Pulse Rate Respiratory Rate Respiratory Effort Short of Breath Respiratory Depth Normal Respiratory Pattern Normal Blood Pressure Blood Pressure Mean Blood Pressure Source Blood Pressure Position Blood Pressure Location Pulse Ox Oxygen Delivery Method Nasal Cannula Oxygen Flow Rate (L/min) 5 Weight Weight: 118.4 kg Body Mass Index (BMI) 37.4 Physical Exam Const alert, oriented x3 and well nourished Constitutional Narrative: Obese, upper middle-aged white male sitting up in bed, appears older than stated age, at bedside, patient appears nontoxic however somewhat tachypneic but no signs of acute extremis HEENT normocephalic, head/scalp atraumatic and moist oral mucous membranes HEENT Narrative: Mild to moderate hearing loss, dentition is poor, Mallampati 3, no thrush Eyes PERRL, EOMs intact bilaterally and conjunctivae normal Eyes Narrative: No scleral icterus Neck no lymphadenopathy, supple and no carotid bruits Neck Narrative: Trachea midline, no thyroid enlargement Resp no retractions, no use of accessory muscles and No clear to auscultation bilaterally Resp Narrative: Bilateral crackles most noted at the base, tachypnea with no signs of extremis Auscultation: crackles; Negative for rhonchi or wheezes Cardio regular rate, regular rhythm, S1 normal heart sound, no murmurs and no rub; Negative for no clicks Cardio Narrative: Audible click at the left lower sternal border GI normal to inspection, nondistended, normoactive bowel sounds, soft to palpation and non-tender Extremity Extremity Narrative: Trace bilateral lower extremity pedal edema, no cyanosis or clubbing Skin no rashes or lesions noted, no wounds, skin turgor normal, no jaundice, no petechiae and no mottling Skin Narrative: Right forearm fistula with positive bruit and thrill Neuro oriented x3, CN's II-XII intact bilaterally, moves all extremities and no focal motor deficits Neuro Narrative: Very mild generalized weakness with proximal strength worse than distal Sensorium / Orientation: awake, alert, oriented to person, oriented to place and oriented to time Speech: speech normal Psych affect normal Psych Narrative: A pleasant and appropriately interactive Results Lab / Micro Data Result Diagrams: 06/25/22 08:10 06/25/22 08:10 Labs: Laboratory Results - last 24 hr 06/25/22 08:10: WBC 9.1, RBC 3.72 L, Hgb 11.6 L, Hct 38.1 L, MCV 102.4 H, MCH 31.2, MCHC 30.4 L, RDW Std Deviation 54.2 H, RDW Coeff of Dominique 14.6, Plt Count 207, MPV 10.5, Immature Gran % (Auto) 0.800, Neut % (Auto) 81.6 H, Lymph % (Auto) 8.5 L, [place] % (Auto) 7.9, Eos % (Auto) 0.9, Baso % (Auto) 0.3, Absolute Neuts (auto) 7.4, Absolute Lymphs (auto) 0.77 L, Nucleated RBC % 0 06/25/22 08:10: PT 33.2 H, INR 3.3 06/25/22 08:10: Sodium 135 L, Potassium 5.8 H, Chloride 97 L, Carbon Dioxide 25.0, Anion Gap 13, BUN 93 H, Creatinine 11.70 H*, Estim Creat Clear Calc 6.33, Est GFR (MDRD) Af Amer 6 L, Est GFR (MDRD) Non-Af 5 L, BUN/Creatinine Ratio 7.9 L, Glucose 120 H, Calcium 8.7 Micro: Microbiology 06/25/22 09:55 Nasal Secretion SARS-CoV-2 Antigen (Rapid) - Final Radiology Impression Chest X-Ray 06/25/22 08:18 IMPRESSION: Mild CHF superimposed on bibasilar scarring. Blunting of both costophrenic angles. Electronically Signed: Jairo Ewing MD at 8:56 EDT , Assessment & Plan Assessment/Plan (1) Shortness of breath: (2) Acute and chronic respiratory failure with hypoxia: (3) Fluid overload: (4) Acute hyperkalemia: (5) Anticoagulant long-term use: (6) H/O prosthetic mitral valve: PLAN: Plan Acute on chronic hypoxic respiratory failure -Baseline O2 3 L -We will need to try to get patient portable tank--> discussed with patient case coordinator -Currently requiring 6 L with a room air oxygen saturation of 64%--> patient noted to be hypoxic with tachypneic as well as orthopnea and paroxysmal nocturnal dyspnea on presentation -Likely related to volume overload his chest x-ray shows signs consistent with heart failure -Case discussed with nephrology and plans are for dialysis with 4 to 5 L removal today and possible ultrafiltration tomorrow depending on status -Wean oxygen to baseline as able -COVID-negative -Check strep pneumo and Legionella antigens as patient does make some but very little urine Hyperkalemia -Patient due for dialysis today -Repeat lab in a.m. -5.8 on admission ESRD -HD dependent--> MWF -Suspect patient needs new calculated dry weight -Likely etiology for respiratory failure -Continue midodrine on dialysis days -Continue sevelamer -Nephrology consulted -HD/UF per nephro Hypothyroidism -Continue home levothyroxine -Check TSH Chronic anemia -Related to end-stage renal disease -Continue home iron supplementation History of gout -Continue home allopurinol 100 mg daily Mechanical mitral valve/history of atrial fibrillation/flutter -On Coumadin -INR is 3.3 and therapeutic with goal 2.5-3.5 -Continue home Coumadin -Repeat INR in a.m. - reports patient has not had his INR checked in a long time and she is pleased therapeutic Small hiatal hernia -Chronic -No chronic issues Secondary hyperparathyroidism -Treatment per nephrology CYNTHIA -Patient has never been able to complete polysomnography -Poor sleep habits per -Recommend outpatient follow-up Depression -Continue home sertraline Obesity -BMI 37.5 -Recommend weight loss -Complicates treatment, prognosis, outcomes DVT prophylaxis -Heparin 3 times daily CODE STATUS -Full code as per discussion on admission Charges/Coding Visit Charges OBSV E&M: 54497 Initial observation care L3
--- NOTE | 2022-06-25 14:52 | CHAPLAIN ---
Type of Pastoral Visit _x__ Initial Visit ___ Follow-up Visit ___ On-call Visit ___ General Patient Visit ___ Spiritual Assessment ___ Family Conference ___ Bereavement ___ Rapid Response ___ Code Blue ___ Other (describe below) Pastoral Care Referral From _x__ Patient ___ Family ___ Nurse ___ Physician ___ Forestry Foreman ___ Supervisor Tubing ___ Other (describe below) Sacrament/Intervention _x__ Active listening ___ Anointing ___ Evangelical ___ Bereavement ___ Communion _x__ Sadie exploration ___ _x__ Life review _x__ Prayer ___ Reconciliation ___ Sacrament of Sick ___ Supportive presence ___ Wedding ___ Other (describe below) Pastoral Comments patient is sitting at bedside and is welcoming of this housing officer; pt explains some of the health concerns and then goes into story of losing his son to COVID last year; pt says I have had miracles of when I wasn't supposed to live and also the sorrow of of my son; pt reveals that he believes in God and does not question Him; pt goal is just to get better; welcomes prayer and presence of housing officer for his support
--- NOTE | 2022-06-25 19:07 | DIALYSIS ---
Hemodialysis tx completed x 3.5 hours. Pt tolerated tx fair, hypotension at times that required decreased UF goal, asymptomatic throughout. Fluid removed 2500ml. Verbal report to HARI Webb post tx.
--- NOTE | 2022-06-25 19:13 | NURSING ---
1700 medication given late due to pt getting hemodialysis. Medication given when dialysis was completed.
[2022-06-25] MEDS: MELATONIN 3 MG TABLET PO (22:05)
[2022-06-26] VITALS (14 sets, daily range): BP systolic 90–120; BP diastolic 60–73; PULSE 59–67; RESP 16–18; TEMP 36.1–36.8; O2SAT 88–98
[2022-06-26] MEDS: Acetaminophen 325 MG Tablet 650 MG PO (01:06)
[2022-06-26 04:47] LABS: Absolute Lymphocyte Count 0.73 X10^3/uL (0.83-4.51); Absolute Neutrophil Count 4.9 X10^3/uL (2.0-7.7); Basophil# 0.04 X10^3/uL; Basophil% 0.6 % (0-1); Eosinophil# 0.12 X10^3/uL; Eosinophils% 1.9 % (0-5); Hematocrit 36.8 % (40-54); Hemoglobin 11.3 g/dL (13.0-16.5); Lymphocyte # 0.73 X10^3/ul (0.83-4.51); Lymphocyte % 11.4 % (19-41); Mean Corp Hgb Conc 30.7 g/dL (32-36); Mean Corpuscular Hgb 31.2 pg (27.0-32.0); Mean Corpuscular Volume 101.7 fL (80-94); Mean Platelet Vol. 10.4 fl (6.2-12.0); Monocyte# 0.59 X10^3/uL; Monocyte% 9.2 % (0-10); NRBC Flagged by Analyzer 0 % (0-5); Neutrophil % 76.3 % (47-70); Platelet Count 192 K/mm3 (150-450); RBC Distribution Width CV 14.5 % (11.6-14.6); RBC Distribution Width SD 54.2 fl (35.1-43.9); Red Blood Count 3.62 M/mm3 (4.6-6.2); White Blood Count 6.4 K/mm3 (4.4-11.0)
[2022-06-26 05:26] LABS: Anion Gap 14 (5-15); BUN 62 mg/dL (7-18); BUN/Creat Ratio 6.5 RATIO (10-20); Calcium,Total 8.4 mg/dL (8.5-10.1); Chloride 95 mmol/L (98-107); EST Glomerular Filtration Rate 6 mL/min (>60); Est Glom Filt Rate - Afr Amer 7 mL/min (>60); Estimated Creatinine Clearance 7.79 ml/min; Glucose 109 mg/dL (74-106); Magnesium 2.3 mg/dL (1.6-2.6); Phosphorus 7.9 mg/dL (2.5-4.9); Potassium 4.8 mmol/L (3.5-5.1); Sodium Level 135 mmol/L (136-145)
[2022-06-26] MEDS: Levothyroxine 100 MCG Tablet 200 MCG PO (05:50)
[2022-06-26] MEDS: Levothyroxine 100 MCG Tablet PO (08:08)
[2022-06-26] MEDS: Allopurinol 100 MG Tablet PO (08:08)
[2022-06-26] MEDS: SEVELAMER CARBONATE 800 MG TABLET PO ×2 (08:08→12:21)
[2022-06-26] MEDS: Ferrous Sulfate 325 MG Tablet PO (08:08)
[2022-06-26] MEDS: Sertraline 50 MG Tablet PO (08:09)
[2022-06-26] MEDS: FLU VACC QS2022-23(6MOS UP)/PF 60 MCG/0.5 ML SYRINGE IM (08:09)
--- NOTE | 2022-06-26 08:57 | CASEMGMT ---
Addendum entered by Lissy Villa 06/26/22 14:01: This RN CM advised pt to have bring e-tank in for discharge later, voices understanding. Erik NORIEGA CM Addendum entered by Lissy Villa 06/26/22 13:50: This RN CM to room with CHOWDHURY form, explanation done-pt voices understanding, and signs CHOW[facility]URY form. Original to chart and copy to pt. Pt voices no further questions/concerns/needs. Green sheet left on chart for increased home oxygen need as pt needs UF prior to d/c and ambulatory testing done after UF. Erik RN CM Addendum entered by Lissy Villa 06/26/22 11:15: Pt now states only has e-tank at home and has difficulty getting it up into his big truck. CM to follow for increased home oxygen need and will add mini tanks and POC to order for pt. Erik NORIEGA CM Original Note: Pt informed Dr. Bradley that he does not have portability at home and only has concentrator that he uses at home and then goes without oxygen the rest of the time. This RN CM to room and pt states oxygen is thru [facility]. When this RN CM asked about portable tanks, pt states does have refillable portable tank that can be carried at home but states initially that he can't take it in truck because it doesn't fit then states after further questioning that he just doesn't like to take it and would prefer a portable concentrator. Pt updated by this RN CM that a portable concentrator will be about the same size as his portable tank. Pt aware that he needs to get ahold of [facility] to notify of wanting POC and he needs to contact them if he would like any further portable tanks, voices understanding. Call to [facility] to verify order and per rep, pt's order is for 2L continuous home oxygen and pt has concentrator and portable tank. Per Marilee, pt just needs to call for any concerns/refills. Pt updated on all, voices understanding. Marilee number provided to pt on d/c instructions and Jenn RN aware to test pt on 2L at rest and with ambulation prior to d/c. RN CM will fax new order to [facility], if pt qualifies for increased O2. Erik NORIEGA CM
--- NOTE | 2022-06-26 10:16 | PCM.PN.REN ---
Subjective Subjective Following for ESRD Patient resting in bed. Still complains of some shortness of breath. Denies any chest pain. States tolerated dialysis yesterday without any cramping. Objective Data Objective Data Vital Signs: Vital Signs Temp Pulse Resp BP Pulse Ox O2 Del Method O2 Flow Rate 97.3 F L 61 16 102/66 98 Nasal Cannula 3 06/26/22 08:00 06/26/22 08:00 06/26/22 08:00 06/26/22 08:00 06/26/22 08:00 06/26/22 08:00 06/26/22 08:00 Oxygen Flow Rate (L/min) [ 6 AMBULATING with Oxygen #3] Oxygen Flow Rate (L/min) [ 4 AMBULATING with Oxygen #2] Oxygen Flow Rate (L/min) [ 3 AMBULATING with Oxygen #1] Oxygen Flow Rate (L/min) [At 3 REST with Oxygen] Oxygen Flow Rate (L/min) 3 Oxygen Delivery Method Nasal Cannula Weight: 118.4 kg Body Mass Index (BMI) 37.4 Intake & Output: Intake and Output for Last 24 Hours 06/24/22 06/25/22 06/26/22 23:59 23:59 23:59 Intake Total 500 / 740 440 / 440 Output Total 2500 / 2500 0 / 0 Balance -1999 / -176 440 / 440 Lab / Micro Data Result Diagrams: 06/26/22 04:31 06/26/22 04:31 Labs: Laboratory Results - last 24 hr 06/26/22 04:31: WBC 6.4, RBC 3.62 L, Hgb 11.3 L, Hct 36.8 L, MCV 101.7 H, MCH 31.2, MCHC 30.7 L, RDW Std Deviation 54.2 H, RDW Coeff of Dominique 14.5, Plt Count 192, MPV 10.4, Immature Gran % (Auto) 0.600, Neut % (Auto) 76.3 H, Lymph % (Auto) 11.4 L, [place] % (Auto) 9.2, Eos % (Auto) 1.9, Baso % (Auto) 0.6, Absolute Neuts (auto) 4.9, Absolute Lymphs (auto) 0.73 L, Nucleated RBC % 0 06/26/22 04:31: Sodium 135 L, Potassium 4.8, Chloride 95 L, Carbon Dioxide 26.0, Anion Gap 14, BUN 62 H, Creatinine 9.50 H*, Estim Creat Clear Calc 7.79, Est GFR (MDRD) Af Amer 7 L, Est GFR (MDRD) Non-Af 6 L, BUN/Creatinine Ratio 6.5 L, Glucose 109 H, Calcium 8.4 L, Phosphorus 7.9 H, Magnesium 2.3, TSH 45.80 H Micro: Microbiology 06/25/22 09:55 Nasal Secretion SARS-CoV-2 Antigen (Rapid) - Final Physical Exam Narrative Const: Alert and oriented x3, no apparent distress Cardio: S1, S2, RRR Respiratory: Scattered rales/rhonchi noted anteriorly and posteriorly, no wheezing noted Abdomen: soft, nontender, rounded, positive bowel sounds x4 quadrants Extremities: Trace edema noted bilateral lower legs AV fistula right forearm positive thrill and bruit Assessment & Plan Assessment/Plan (1) Acute hyperkalemia: (2) ESRD (end stage renal disease): (3) Shortness of breath: (4) Anemia due to chronic kidney disease, on chronic dialysis: PLAN: Plan -ESRD on HD MWF at [facility] followed by Dr. Cantu. Patient tolerated dialysis yesterday with 3.1 L fluid removed. Had been attempting to remove 4 L of fluid but due to low blood pressures, systolic in the 80s, had to back off of fluid removal. Patient is SOB at rest this am with rales/rhonchi therefore will plan for ultrafiltration today and attempt fluid removal as patient/blood pressure tolerates. Patient will have normal hemodialysis tomorrow over 3.5 hours on 2K bath attempting fluid removal as patient/blood pressure tolerates. Outpatient EDW 116 kg. Patient will have new lowered dry weight by time of discharge - Potassium was 5.8 yesterday, today potassium is 4.8 - white count is unremarkable, hemoglobin is 11.3, patient does not need GEGE with dialysis today. We will continue to monitor hemoglobin trends. - Current blood pressures are acceptable. He is not on any antihypertensives. He receives midodrine at start of dialysis. We will continue midodrine as ordered. -Hyperphosphatemia; phosphorus 7.9. Renvela ordered once daily, will increase to 3 times daily.
[2022-06-26] MEDS: Folic Acid/Vitamin B Comp W-C 1 Capsule 1 CAP PO (12:21)
--- NOTE | 2022-06-26 14:50 | PN.HOSP_ITS ---
Subjective Subjective Short of breath and back to his baseline 3 L nasal cannula this morning however did have some desaturation with ambulation. Discussed with nephrology and they will ultrafiltrate him later today. 2.5 L removed yesterday. TSH was also noted to be markedly elevated at 45. Patient reports compliance without missed doses of levothyroxine. I discussed the levothyroxine dose increased with him and the importance of repeating a TSH in 6 weeks. Still possible discharge later today if dialysis can be performed and we can reevaluate his oxygen requirements. Objective Data Objective Data Vital Signs: Vital Signs Temp Pulse Resp BP Pulse Ox O2 Del Method O2 Flow Rate 97.3 F L 61 16 102/66 98 Nasal Cannula 3 06/26/22 08:00 06/26/22 08:00 06/26/22 08:00 06/26/22 08:00 06/26/22 08:00 06/26/22 08:00 06/26/22 08:00 Oxygen Flow Rate (L/min) [ 6 AMBULATING with Oxygen #3] Oxygen Flow Rate (L/min) [ 4 AMBULATING with Oxygen #2] Oxygen Flow Rate (L/min) [ 3 AMBULATING with Oxygen #1] Oxygen Flow Rate (L/min) [At 3 REST with Oxygen] Oxygen Flow Rate (L/min) 3 Oxygen Delivery Method Nasal Cannula Weight: 118.4 kg Body Mass Index (BMI) 37.4 Intake & Output: Intake and Output for Last 24 Hours 06/24/22 06/25/22 06/26/22 23:59 23:59 23:59 Intake Total 500 / 740 440 / 440 Output Total 2500 / 2500 0 / 0 Balance -1999 / 440 / 440 Lab / Micro Data Result Diagrams: 06/26/22 04:31 06/26/22 04:31 Labs: Laboratory Results - last 24 hr 06/26/22 04:31: WBC 6.4, RBC 3.62 L, Hgb 11.3 L, Hct 36.8 L, MCV 101.7 H, MCH 31.2, MCHC 30.7 L, RDW Std Deviation 54.2 H, RDW Coeff of Dominique 14.5, Plt Count 192, MPV 10.4, Immature Gran % (Auto) 0.600, Neut % (Auto) 76.3 H, Lymph % (Auto) 11.4 L, Lane % (Auto) 9.2, Eos % (Auto) 1.9, Baso % (Auto) 0.6, Absolute Neuts (auto) 4.9, Absolute Lymphs (auto) 0.73 L, Nucleated RBC % 0 06/26/22 04:31: Sodium 135 L, Potassium 4.8, Chloride 95 L, Carbon Dioxide 26.0, Anion Gap 14, BUN 62 H, Creatinine 9.50 H*, Estim Creat Clear Calc 7.79, Est GFR (MDRD) Af Amer 7 L, Est GFR (MDRD) Non-Af 6 L, BUN/Creatinine Ratio 6.5 L, Glu cose 109 H, Calcium 8.4 L, Phosphorus 7.9 H, Magnesium 2.3, TSH 45.80 H Micro: Microbiology 06/26/22 13:45 Urine, Clean Catch Legionella Antigen - Final 06/25/22 09:55 Nasal Secretion SARS-CoV-2 Antigen (Rapid) - Final Physical Exam Const alert, oriented x3 and well nourished Constitutional Narrative: Obese, upper middle-aged white male sitting up on the edge of the bed, appears older than stated age, patient appears comfortable and nontoxic HEENT normocephalic, head/scalp atraumatic and moist oral mucous membranes HEENT Narrative: Mallampati 3, no thrush Resp normal respiratory effort, no retractions, no use of accessory muscles and No clear to auscultation bilaterally Resp Narrative: Few bibasilar crackles however improved since last 24 hours, tachypnea has resolved Auscultation: crackles; Negative for rhonchi or wheezes Cardio regular rate, regular rhythm, S1 normal heart sound, S2 normal heart sound, no murmurs, no rub and no gallops; Negative for no clicks Cardio Narrative: Audible click at the left lower sternal border GI normal to inspection, nondistended, normoactive bowel sounds, soft to palpation and non-tender Neuro oriented x3, moves all extremities and no focal motor deficits Speech: speech normal Psych affect normal Psych Narrative: A pleasant and appropriately interactive Assessment & Plan Assessment/Plan (1) Shortness of breath: (2) Acute and chronic respiratory failure with hypoxia: (3) Fluid overload: (4) Acute hyperkalemia: (5) Anticoagulant long-term use: (6) H/O prosthetic mitral valve: (7) Elevated TSH: PLAN: Plan Acute on chronic hypoxic respiratory failure -Baseline O2 3 L -We will need to try to get patient portable tank--> discussed with case management coordinator and this has been arranged for discharge -Patient now back to baseline at rest but required 4 L with ambulation orthopnea and paroxysmal nocturnal dyspnea on presentation -Much improved with volume removal -2.5 L removed yesterday with dialysis and plan is for ultrafiltration again today -Wean oxygen to baseline as able -COVID-negative -Unable to obtain strep pneumo but Legionella antigen was negative Hyperkalemia -Resolved with dialysis yesterday -Potassium 4.8 this morning ESRD -HD dependent--> MWF -Suspect patient needs new calculated dry weight -Likely etiology for respiratory failure -Improved with dialysis -Continue midodrine on dialysis days -Continue sevelamer -Nephrology following -HD/UF per nephro Hypothyroidism -Continue home levothyroxine -TSH is markedly elevated at 45.8 -Could be contributing to his shortness of breath and fatigue -Patient reports compliance with home levothyroxine 200 mg daily -We will increase dose to 300 mg daily and have him check a TSH in the next 6 weeks -Discussed with patient he voiced understanding Chronic anemia -Related to end-stage renal disease -Continue home iron supplementation History of gout -Continue home allopurinol 100 mg daily Mechanical mitral valve/history of atrial fibrillation/flutter -On Coumadin -INR 3.3 on admission and therapeutic with goal 2.5-3.5 -Repeat tomorrow if patient unable to be discharged -Continue home Coumadin -We will recommend repeat on Saturday of next week if able to discharge today Small hiatal hernia -Chronic -No chronic issues Secondary hyperparathyroidism -Treatment per nephrology CYNTHIA -Patient has never been able to complete polysomnography -Poor sleep habits per -Recommend outpatient follow-up Depression -Continue home sertraline Obesity -BMI 37.5 -Recommend weight loss -Complicates treatment, prognosis, outcomes DVT prophylaxis -Heparin 3 times daily CODE STATUS -Full code as per discussion on admission Charges/Coding Visit Charges OBSV E&M: 33921 Initial observation care L2
[2022-06-26] MEDS: Midodrine HCl 5 MG Tablet 10 MG PO (16:28)
--- NOTE | 2022-06-26 18:22 | NURSING ---
Charting reviewed with Mario Giles RN
--- NOTE | 2022-06-26 20:52 | DIALYSIS ---
Hemodialysis complete. 2 hour IUF. Net fluid removed = 2400 ml. Patient tolerated HD tx well Right forearm AVF: Site benign, thrill and bruit present. Needle site pressure held 10 min each. Hemostasis achieved. Next HD tx 06-27-2022 Report given to primary RN, Olga White
[2022-06-26] MEDS: MELATONIN 3 MG TABLET PO (21:54)
[2022-06-27] VITALS (10 sets, daily range): BP systolic 96–114; BP diastolic 55–60; PULSE 59–80; RESP 14–17; TEMP 36.3–36.4; O2SAT 85–97
[2022-06-27 06:01] LABS: International Normalized Ratio 2.9; Prothrombin Time (Protime)PT. 30.3 SECONDS (11.7-14.9)
--- NOTE | 2022-06-27 07:36 | CASEMGMT ---
Call to [facility] to see if they could still take pt today for OP HD and per Jane, pt already missed chair time and they are unable to fit him in the rest of the day. Jane does request run sheets from here for pt and states if he got UF last night and HD on saturday then he should be fine to wait till saturday for next treatment. Call to terri Fair TOP EXECUTIVE, and she states pt needs his HD today then can be discharged home. Dr. Bradley aware, voices understanding. HD run sheets faxed to [facility] per request. CM to follow for O2 testing after HD this am. SStjoe RN CM
--- NOTE | 2022-06-27 08:44 | PN.RENAL_ITS ---
Subjective Subjective Following for ESRD Patient sitting up in bed. Denies any complaints. Reports shortness of breath has improved. Reports feeling better overall. Objective Data Objective Data Vital Signs: Vital Signs Temp Pulse Resp BP Pulse Ox O2 Del Method O2 Flow Rate 97.3 F L 67 16 98/55 L 97 Nasal Cannula 2 06/27/22 03:36 06/27/22 08:06 06/27/22 03:36 06/27/22 03:36 06/27/22 03:36 06/27/22 07:37 06/27/22 07:37 Oxygen Flow Rate (L/min) [ 6 AMBULATING with Oxygen #3] Oxygen Flow Rate (L/min) [ 4 AMBULATING with Oxygen #2] Oxygen Flow Rate (L/min) [ 3 AMBULATING with Oxygen #1] Oxygen Flow Rate (L/min) [At 3 REST with Oxygen] Oxygen Flow Rate (L/min) 2 Oxygen Delivery Method Nasal Cannula Weight: 118.4 kg Body Mass Index (BMI) 37.4 Intake & Output: Intake and Output for Last 24 Hours 06/25/22 06/26/22 06/27/22 23:59 23:59 23:59 Intake Total 500 / 740 800 / 1100 700 / 700 Output Total 2500 / 2500 2400 / 2400 0 / 0 Balance -2000 / -1760 -1600 / -1300 700 / 700 Lab / Micro Data Result Diagrams: 06/26/22 04:31 06/26/22 04:31 Labs: Laboratory Results - last 24 hr 06/27/22 04:57: PT 30.3 H, INR 2.9 Micro: Microbiology 06/26/22 13:45 Urine, Clean Catch Legionella Antigen - Final 06/25/22 09:55 Nasal Secretion SARS-CoV-2 Antigen (Rapid) - Final Physical Exam Narrative Const: Alert and oriented x3, no apparent distress Cardio: S1, S2, RRR Respiratory: No rhonchi or rales noted. Diminished breath sounds posterior bases Abdomen: soft, nontender, rounded, positive bowel sounds x4 quadrants Extremities: Trace edema noted bilateral lower legs, improved AV fistula right forearm positive thrill and bruit Assessment & Plan Assessment/Plan (1) Acute hyperkalemia: (2) ESRD (end stage renal disease): (3) Shortness of breath: (4) Anemia due to chronic kidney disease, on chronic dialysis: PLAN: Plan -ESRD on HD MWF at [facility] followed by Dr. Cantu. Patient tolerated dialysis Saturday with 3.1 L fluid removed; he tolerated sequential treatment yesterday over 2 hours with 3 L fluid removed. We will plan for dialysis today over 3.5 hours and attempt 2 to 3 L fluid removal as patient/blood pressure tolerates. He will have a new lowered dry weight by time of discharge possibly around 111 kg. Outpatient EDW was 116 kg. Discussed with patient importance of following fluid restriction daily. - Potassium was 4.8 yesterday - white count is unremarkable, hemoglobin is 11.3, patient does not need GEGE with dialysis today. We will continue to monitor hemoglobin trends. - Current blood pressures are acceptable. He is not on any antihypertensives. He receives midodrine at start of dialysis. We will continue midodrine as ordered. -Hyperphosphatemia; phosphorus 7.9. Renvela increased to 3 times daily. -Okay for discharge per renal standpoint when cleared by primary team. If discharged today patient will go to his dialysis on Saturday as scheduled. We will contact his dialysis unit to inform them of the patient's new lowered dry weight.
[2022-06-27] MEDS: Midodrine HCl 5 MG Tablet 10 MG PO (09:47)
--- NOTE | 2022-06-27 12:27 | DIALYSIS ---
Hemodialysis completed, fluid removed was 1 liter. Patient tolerated well.
[2022-06-27] MEDS: Ferrous Sulfate 325 MG Tablet PO (12:31)
[2022-06-27] MEDS: SEVELAMER CARBONATE 800 MG TABLET PO (12:32)
[2022-06-27] MEDS: Allopurinol 100 MG Tablet PO (12:32)
[2022-06-27] MEDS: Sertraline 50 MG Tablet PO (12:33)
[2022-06-27] MEDS: Folic Acid/Vitamin B Comp W-C 1 Capsule 1 CAP PO (12:33)
[2022-06-27] MEDS: Levothyroxine 150 MCG Tablet 300 MCG PO (12:33)
--- NOTE | 2022-06-27 13:51 | CASEMGMT ---
Pt qualifies for 2L at rest and 6L with exertion. New order faxed to [place] with mini tanks/POC placed on order per pt request. Pt also provided with [facility] pulse ox for discharge. Pt/ are updated on all, voice understanding. Pt/ voice no further questions/concerns/needs. Erik NORIEGA CM
--- NOTE | 2022-06-27 14:02 | PCM.DC.SUM ---
Providers Date of Admission: 06/25/22 Date of Discharge: 06/27/22 Primary Care Physician: Dr. Shekhar Williamson MD Consultations 06/25/22 10:21 Consult: Nephrology Routine Consulting Provider: Jim Montenegro Reason for Consult: ESRD and needs HD EMERGENT Consult: No MD Notified: Yes Date Notified: 06/25/22 Time Notified: 09:52 Method of Notification: Verbal Reason For Visit: ACUTE HYPOXIA Diagnosis Discharge Diagnosis (1) Acute hyperkalemia: Status: Acute Code(s): E87.5 - Hyperkalemia (2) ESRD (end stage renal disease): Status: Acute Code(s): N18.6 - End stage renal disease (3) Shortness of breath: Status: Acute Code(s): R06.02 - Shortness of breath (4) Anemia due to chronic kidney disease, on chronic dialysis: Status: Acute Code(s): N18.6 - End stage renal disease; D63.1 - Anemia in chronic kidney disease; Z99.2 - Dependence on renal dialysis Plan Acute on chronic hypoxic respiratory failure -Baseline O2 3 L -We will need to try to get patient portable tank--> discussed with piano case maker and this has been arranged for discharge -Patient now back to baseline at rest but required 4 L with ambulation orthopnea and paroxysmal nocturnal dyspnea on presentation -Much improved with volume removal -2.5 L removed yesterday with dialysis and plan is for ultrafiltration again today -Wean oxygen to baseline as able -COVID-negative -Unable to obtain strep pneumo but Legionella antigen was negative Hyperkalemia -Resolved with dialysis yesterday -Potassium 4.8 this morning ESRD -HD dependent--> MWF -Suspect patient needs new calculated dry weight -Likely etiology for respiratory failure -Improved with dialysis -Continue midodrine on dialysis days -Continue sevelamer -Nephrology following -HD/UF per nephro Hypothyroidism -Continue home levothyroxine -TSH is markedly elevated at 45.8 -Could be contributing to his shortness of breath and fatigue -Patient reports compliance with home levothyroxine 200 mg daily -We will increase dose to 300 mg daily and have him check a TSH in the next 6 weeks -Discussed with patient he voiced understanding Chronic anemia -Related to end-stage renal disease -Continue home iron supplementation History of gout -Continue home allopurinol 100 mg daily Mechanical mitral valve/history of atrial fibrillation/flutter -On Coumadin -INR 3.3 on admission and therapeutic with goal 2.5-3.5 -Repeat tomorrow if patient unable to be discharged -Continue home Coumadin -We will recommend repeat on Saturday of next week if able to discharge today Small hiatal hernia -Chronic -No chronic issues Secondary hyperparathyroidism -Treatment per nephrology CYNTHIA -Patient has never been able to complete polysomnography -Poor sleep habits per -Recommend outpatient follow-up Depression -Continue home sertraline Obesity -BMI 37.5 -Recommend weight loss -Complicates treatment, prognosis, outcomes DVT prophylaxis -Heparin 3 times daily CODE STATUS -Full code as per discussion on admission Medications at Discharge Home Medications allopurinol 100 mg tablet 100 mg PO DAILYCM 07/12/16 sertraline 50 mg tablet 50 mg PO DAILY 07/12/16 warfarin 5 mg tablet 5 mg PO VELEZ 07/12/16 warfarin 7.5 mg tablet 7.5 mg PO MOTUWETHFRSA 11/09/19 iron 40 mg capsule 65 mg PO DAILY 06/25/22 midodrine 10 mg tablet 10 mg PO QODAY 06/25/22 sevelamer HCl 800 mg tablet 800 mg PO DAILY 06/25/22 vitamin B complex and vitamin C no.20-folic acid 1 mg capsule (Triphrocaps) 1 cap PO DAILY 06/25/22 levothyroxine 150 mcg tablet 300 mcg PO DAILY@0600 #60 tabs 06/26/22 Hospital Course Operations None Procedures Dialysis and - (Chest x-ray) Summary of Care Provided Minutes Spent on Discharge: 38 Hospital Course: Mr. Stevenson is a 67-year-old white male who presented to emergency department [facility] on 06/25/2022 with worsening shortness of breath. Patient is noted to have chronic shortness of breath and is O2 dependent at baseline. He initially reported it was 3 L and he was not wearing it with exertion however upon review after admission it is actually 2 L [id number]. He said he did not have a portable tank however he does have a portable tank but it is not convenient for him to use. We were able during his hospitalization, to get a concentrator that was more compact for him to utilize while he was out of the house. Upon presentation he was complaining of ongoing worsening shortness of breath that had increased over the last 2 to 3 weeks. He had not had the opportunity to take this up with his community arts centre manager or primary care physician but upon review of records it sounds like he has had issues with shortness of breath for an extended period of time. He is on dialysis at baseline and has been on dialysis since 2014 he was unclear what his dry weight was upon presentation but indicated he had not missed any dialysis sessions. He gets dialysis every Saturday and Saturday. He reported 4 L of fluid removal at that dialysis session. He denied any fever or chills and reported an intermittent cough which was worse in the morning and productive of white frothy sputum he did indicate however that his cough usually subsided after he had been up for a while. He did complain of some orthopnea and paroxysmal nocturnal dyspnea. His is also concerned that he has CYNTHIA but has not been able to tolerate a test to diagnose this previously. He reported to his regular dialysis session on the day of admission but he was noted to be hypoxic on room air and was placed on 6 L nasal cannula and sent to the emergency department. Oxygen saturations were 88% at that time with rest. Upon presentation his temperature was 97.0, heart rate 69, blood pressure 102/56, respiratory rate 20, and oxygen saturation was 64% on room air.? He was therefore placed on 6 L nasal cannula and oxygen saturations improved to 98 to 100%.? His CBC shows a normal white count with a chronic stable anemia having a hemoglobin of 11.6.? His INR was 3.3 which is in his therapeutic range of 2.5-3.5 for mechanical mitral valve.? His serum sodium was 135, potassium 5.8, chloride 97 with a normal anion gap however his BUN was 93 and his serum creatinine was 11.7.? Serum glucose was 120.? His chest x-ray showed CHF with superimposed bibasilar scarring and blunting of both costophrenic angles he also appeared to have fluid in the fissure on the right side of his chest.? Compared with previous studies this all appear to be new.? His EKG shows an atrial paced rhythm with a ventricular rate of 60 and a prolonged OK interval with first-degree heart block with a QTC of 426 and low voltage but no signs of acute ischemia. The patient was admitted to the PCU and dialysis was arranged. He had dialysis on 06/25/2022 for 2-1/2 L of fluid removal. This resulted in improved hypoxia down to 3 L nasal cannula at rest but he still was fairly tachypneic and short of breath with exertion. His hyperkalemia did resolve with treatment however. Repeat dialysis for ultrafiltration was performed on 06/26/2022 with another 2-1/2 L removed but unfortunately was performed late in the evening and we were unable to get him home. He was also dialyzed per his regular schedule on 06/27/2022 and 1 L was removed at that time. His oxygen saturation improved to 93% at rest on 2 L however he desatted to 85% on 2 L and his oxygen had to be increased to 6 L to maintain sats greater than 88%. It is documented in his chart that he has a history of COPD however he does not follow with a press machine feeder and he denies any history of tobacco abuse. I have recommended follow-up with a press machine feeder after discharge and information for follow-up was given on his discharge packet. We also assessed a TSH during his hospitalization and was found to be greater than 45. He was on levothyroxine 200 mcg daily prior to admission and he indicated that he was compliant with this medication. We therefore increased his dose to 300 mcg daily during his hospitalization and recommended a follow-up TSH be performed in 6 weeks for reevaluation. This may be contributing to his fluid retention as well as his shortness of breath. He is to follow-up with his primary care physician within the next 1 to 2 weeks. We have strongly encouraged him to wear his oxygen during dance that are outside the house as he has not been compliant with this previously. This also may have been exacerbating his shortness of breath. He reported 75% improvement since admission with his treatment. He was discharged home in stable condition on 06/27/2022 with a prescription for his levothyroxine and for his oxygen requirement changes. He is to return to his regularly scheduled dialysis. His INR was at goal during his hospitalization and on the day of discharge was 2.9. I have recommended a repeat INR be obtained on 07/02/2022. Discharge diagnoses: Acute on chronic hypoxic respiratory failure Hyperkalemia-resolved End-stage renal disease-HD dependent Hypothyroidism-uncontrolled Chronic anemia History of gout Mechanical mitral valve History of atrial fibrillation/flutter Small hiatal hernia Secondary hyperparathyroidism CYNTHIA-noncompliant Depression Obesity Physical Exam Const alert and oriented x3 Constitutional Narrative: Obese, upper middle-aged white male sitting up in bed, dialysis nurse at bedside and preparing to contracting support specialist on dialysis, appears older than stated age, patient appears comfortable and nontoxic General Appearance: cooperative, comfortable, well kempt and well developed Orientation / Consciousness: awake Exam Limitations: no limitations Nutritional Appearance: obese HEENT normocephalic, head/scalp atraumatic and moist oral mucous membranes HEENT Narrative: Moderate hearing loss, dentition is fair, Mallampati is 3, no thrush Eyes PERRL, EOMs intact bilaterally and conjunctivae normal Eyes Narrative: No scleral icterus Neck no lymphadenopathy, supple and no carotid bruits Neck Narrative: Trachea midline, no thyroid enlargement Resp normal respiratory effort, no retractions, no use of accessory muscles and clear to auscultation bilaterally Resp Narrative: Diminished but clear Auscultation: Negative for crackles, rhonchi or wheezes Cardio regular rate, regular rhythm, S1 normal heart sound, S2 normal heart sound, no murmurs, no rub and no gallops; Negative for no clicks Cardio Narrative: Audible click at the left lower sternal border GI normal to inspection, nondistended, normoactive bowel sounds, soft to palpation and non-tender Extremity no clubbing, cyanosis or edema Skin no rashes or lesions noted, no wounds, skin turgor normal, no jaundice, no petechiae and no mottling Skin Narrative: Right forearm fistula with positive bruit and thrill Neuro oriented x3, CN's II-XII intact bilaterally, moves all extremities and no focal motor deficits Neuro Narrative: Very mild generalized weakness with proximal strength worse than distal Sensorium / Orientation: awake, alert, oriented to person, oriented to place and oriented to time Speech: speech normal Psych affect normal Psych Narrative: A pleasant and appropriately interactive Weight / BMI Weight Weight: 118.4 kg Body Mass Index (BMI) 37.4 ABG / Lab / Microbiology Data Result Diagrams: 06/26/22 04:31 06/26/22 04:31 Laboratory: Laboratory Results - last 24 hr 06/27/22 04:57: PT 30.3 H, INR 2.9 Microbiology: Microbiology 06/26/22 13:45 Urine, Clean Catch Legionella Antigen - Final 06/25/22 09:55 Nasal Secretion SARS-CoV-2 Antigen (Rapid) - Final D/C Instructions Discharge Diet: Low fat / Low cholesterol and Renal Diet Discharge Activity: Return to Normal Activity Return to work on: 06/29/22 Meaningful Use Info Meaningful Use Diagnoses (Choose all that apply): None applicable Discharge Plan Admission Admit Date/Time: 06/25/22 09:39 Primary Reason for Your Visit: Shortness of breath Attending Provider: Allison Bradley Primary Care Provider: Shekhar Williamson Consulting Providers: Jim Montenegro Instructions Additional Instructions / Restrictions: 1. Please have TSH rechecked by your primary care physician in 6 weeks to reassess your thyroid 2. Please wear supplemental oxygen as ordered at home and away from home -2 L at rest and 6 L with exertion 3. Please have INR checked on 07/02/2022 4. Please follow-up with pulmonary as directed below and call as soon as possible to obtain appointment. Discharge Orders/Prescriptions Prescriptions: New levothyroxine 150 mcg Tablet 300 mcg PO DAILY@0600 Qty: 60 1RF Continued allopurinol 100 MG tablet 100 mg PO DAILYCM warfarin 5 MG tablet 5 mg PO VELEZ sertraline 50 MG tablet 50 mg PO DAILY warfarin 7.5 MG tablet 7.5 mg PO MOTUWETHFRSA sevelamer HCl 800 mg Tablet 800 mg PO DAILY Rx Instructions: must administer with a meal/food Triphrocaps 1 mg Capsule 1 cap PO DAILY iron 40 mg Capsule 65 mg PO DAILY midodrine 10 mg Tablet 10 mg PO QODAY Rx Instructions: do not give last dose of day after 6PM or within 4 hrs of bedtime PRIOR TO DIALYSIS Discontinued levothyroxine 125 MCG tablet 200 mcg PO DAILY Referrals / Follow Up: Benedict Lopez MD [Med Staff - Active Staff] - Within 1 Month (Call to be seen for follow-up as soon as possible) Shekhar Williamson MD [Primary Care Provider] - Within 1 Month (Need follow-up TSH in 6 weeks from 06/26/2022) Disposition Disposition (needs filled in before D/C Order can be placed): Home, Self Care Charges/Coding Visit Charges OBSV E&M: 34433 Observation care discharge
--- NOTE | 2022-06-27 14:36 | PHA.DC.MR ---
Pharmacy Service has performed discharge medication reconciliation for this patient. The patient's discharge medication list was reviewed for discrepancies and discrepancies were resolved. Home Medications allopurinol 100 mg tablet 100 mg PO DAILYCM 07/12/16 sertraline 50 mg tablet 50 mg PO DAILY 07/12/16 warfarin 5 mg tablet 5 mg PO VELEZ 07/12/16 warfarin 7.5 mg tablet 7.5 mg PO MOTUWETHFRSA 11/09/19 iron 40 mg capsule 65 mg PO DAILY 06/25/22 midodrine 10 mg tablet 10 mg PO QODAY 06/25/22 sevelamer HCl 800 mg tablet 800 mg PO DAILY 06/25/22 vitamin B complex and vitamin C no.20-folic acid 1 mg capsule (Triphrocaps) 1 cap PO DAILY 06/25/22 levothyroxine 150 mcg tablet 300 mcg PO DAILY@0600 #60 tabs 06/26/22
--- NOTE | 2022-06-27 14:38 | CASEMGMT ---
OLENA faxed d/c summary to [facility]. Silvana Goodman [employer]
--- NOTE | 2022-06-27 15:42 | CASEMGMT ---
Addendum entered by Tamara Guzmán 06/27/22 15:53: Faxed clinicals to [facility] per request to [phone]. Original Note: HARI SHAFER updated that pt does not have a portable tank to dc home with. TC to [facility] to see if a portable tank can be delivered to the hospital. Spoke with Ella who states that pt has a tank at home and they cannot bring a portable one due to this. HARI SHAFER in to pt room to make aware. Pt at bedside. She states that she was not made aware of the need for a portable tank and that it is almost empty anyway. It is noted was made aware of need for portable tank. Pt states he came to the hospital by car without the use of oxygen. TC back to [facility] to make aware. Spoke with Aisha, she states in this case they will deliver a portable tank to the hospital. She states pt only has a 5L concentrator at home. Pt aware to call [facility] once home so a higher concentrator can be delivered per [facility] staff. Pt and verbalize understanding. They both deny further needs at this time. Updated pt nurse as well as SW. Plan: DC home once portable tank arrives.
== END 2022-06-27 14:02 | disposition home or self-care (01) ==
LOC: ED 10:02 → PCU 10:04
PROVIDERS: Admitting Provider Internal Medicine; Emergency Provider Emergency Medicine; PCP Family Medicine; Visit Provider Internal Medicine
DX: E87.5 Hyperkalemia (principal); Z99.2 Dependence on renal dialysis; E11.22 Type 2 diabetes mellitus with diabetic chronic kidney disease; I12.0 Hypertensive chronic kidney disease with stage 5 chronic kidney disease or end stage renal disease; N18.6 End stage renal disease; J96.21 Acute and chronic respiratory failure with hypoxia; I48.20 Chronic atrial fibrillation, unspecified; N25.81 Secondary hyperparathyroidism of renal origin; Z68.37 Body mass index [BMI] 37.0-37.9, adult; K44.9 Diaphragmatic hernia without obstruction or gangrene; Z91.199 Patient's noncompliance with other medical treatment and regimen due to unspecified reason; D63.1 Anemia in chronic kidney disease; Z23 Encounter for immunization; E03.9 Hypothyroidism, unspecified; J98.4 Other disorders of lung; Z87.891 Personal history of nicotine dependence; Z99.81 Dependence on supplemental oxygen; Z79.01 Long term (current) use of anticoagulants; E66.9 Obesity, unspecified; Z79.899 Other long term (current) drug therapy; G47.33 Obstructive sleep apnea (adult) (pediatric)
CPT/HCPCS: 36415; 71045; 80048; 83735; 84100; 84443; 85025; 85610; 87449; 87811; 90937; 93005; 99218; 99251; 99285; J7030; 90686; A4216; G0257; G0378; G0463

== ENCOUNTER 2022-07-23 09:15 | Inpatient (IN) | payer OTHER, MEDICARE, SELFPAY ==
[2022-07-23] VITALS (18 sets, daily range): BP systolic 95–113; BP diastolic 42–61; PULSE 59–101; RESP 16–22; TEMP 36–37; O2SAT 95–100; BMI 36.0; BMI 35.9
--- NOTE | 2022-07-23 09:45 | EKG12_ITS ---
Test Reason : CP Blood Pressure : / mmHG Vent. Rate : 060 BPM Atrial Rate : 060 BPM P-R Int : 286 ms QRS Dur : 102 ms QT Int : 414 ms P-R-T Axes : -28 076 046 degrees QTc Int : 414 ms Atrial-paced rhythm with prolonged AV conduction Low voltage QRS Incomplete right bundle branch block Abnormal ECG Confirmed by LEIGH ANN DANIELS, LUDA ([id number]), scientific editor ALLA WLELS ([id number]) on 07/25/2022 9:32:29 AM Referred By: JAZMIN Confirmed By:LUDA BELTRÁN MD
--- NOTE | 2022-07-23 09:46 | EDS_ITS ---
HPI History of Present Illness Chief Complaint: Chest Pain Informant: patient Narrative Narrative: Presents after leaving dialysis 30 minutes early. He has had chills and myalgias over the weekend. Started having cough. No fevers or headache. Reports diarrhea twice a day for the past week. No recent antibiotics. Reports stools are black in color. He is not on iron. Denies bloody stools. Denies abdominal pain. Denies chest pains. Is on chronic 4 L of oxygen history of COPD heart failure. He has been dialysis for last 2 years Fridays. COVID vaccinated without infections in the past. He received influenza vaccine this year. Denies sick contacts. Minimal urine output states mild not once a day. He is on warfarin for history of chronic A. fib with pacemaker. Pressure Tester Dr. Payan. 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 [facility] Medical History Anemia due to chronic kidney disease, on chronic dialysis Anticoagulant long-term use Atrial flutter Chronic atrial fibrillation Chronic kidney disease COPD (chronic obstructive pulmonary disease) CRF (chronic renal failure) Diabetes mellitus ESRD (end stage renal disease) Hypercalcemia Hypertension Hypertension Hypothyroidism Iron deficiency anemia Metabolic acidosis Obstructive sleep apnea Pacemaker Sleep apnea Home Medications allopurinol 100 mg tablet 100 mg PO DAILYCM Check with primary doctor 07/12/16 [History Last Taken Unknown] sertraline 50 mg tablet 50 mg PO DAILY Check with primary doctor 07/12/16 [History Last Taken Unknown] warfarin 5 mg tablet 5 mg PO VELEZ Check with primary doctor 07/12/16 [History Last Taken Unknown] warfarin 7.5 mg tablet 7.5 mg PO MOTUWETHFRSA Check with primary doctor 11/09/19 [History Last Taken 05/23/20] iron 40 mg capsule 65 mg PO DAILY Check with primary doctor 06/25/22 [History Last Taken Unknown] midodrine 10 mg tablet 10 mg PO QODAY Check with primary doctor 06/25/22 [History Last Taken Unknown] sevelamer HCl 800 mg tablet 800 mg PO DAILY Check with primary doctor 06/25/22 [History Last Taken Unknown] vitamin B complex and vitamin C no.20-folic acid 1 mg capsule (Triphrocaps) 1 cap PO DAILY Check with primary doctor 06/25/22 [History Last Taken Unknown] levothyroxine 150 mcg tablet 300 mcg PO DAILY@0600 Check with primary doctor 07/23/22 [History Last Taken Unknown] Allergy/AdvReac Type Severity Reaction Status Date / Time Sulfa (Sulfonamide Allergy Intermediate PT NOT SURE Verified 06/25/22 08:09 Antibiotics) Family History (Updated 07/23/22 @ 12:[address] 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 [id number] Smoking Status: Former smoker alcohol intake: never substance use type: does not use ROS ROS ED Constitutional Constitutional ED: Reports chills; Denies fever(s) or sweats Eyes Eyes: Denies change in vision ENT ENT ED: Denies dysphagia or sore throat Cardiovascular Cardiovascular: Denies chest pain, leg edema, palpitations or racing heartbeat Respiratory/Chest Respiratory/Chest: Denies cough, dyspnea or dyspnea on exertion Gastrointestinal Gastrointestinal: Reports diarrhea; Denies abdominal pain, nausea or vomiting Genitourinary Genitourinary ED: Denies dysuria, hematuria or urinary frequency Musculoskeletal Musculoskeletal: Reports myalgias; Denies back pain, extremity pain or neck pain Integumentary Denies rash or wounds Neurologic Neurologic: Denies headache(s), paresthesias or weakness EXAM Physical Exam Const Vital Signs: 07/23/22 09:16 07/23/22 09:37 07/23/22 09:48 Temperature 96.8 F L Temperature Source Temporal Pulse Rate 61 Respiratory Rate 16 Respiratory Effort Normal Non-Labored Respiratory Pattern Blood Pressure 96/48 L Blood Pressure Mean 64 Pulse Ox 98 97 Oxygen Delivery Method Room Air Nasal Cannula Oxygen Flow Rate (L/min) 4 07/23/22 11:25 07/23/22 11:17 Temperature Temperature Source Pulse Rate 62 101 H Respiratory Rate 22 H 20 H Respiratory Effort Respiratory Pattern Normal Blood Pressure 101/53 L Blood Pressure Mean 69 Pulse Ox 99 Oxygen Delivery Method Nasal Cannula Oxygen Flow Rate (L/min) 4 Positive well nourished and well developed Constitutional Narrative: 4 L nasal cannula no distress. General Appearance ED: well developed and NAD HEENT Reports moist mucous membranes normocephalic and atraumatic Eyes PERRL, EOMs intact bilaterally and conjunctivae normal General Eye ED: Yes normal appearance of both eyes Neck no lymphadenopathy and supple General: Negative for tenderness Chest Wall palpation of chest normal Chest Narrative: Midline chest scar. Left upper chest pacemaker device. Chest: Negative for tenderness Resp normal respiratory effort and normal air movement Effort and Inspection: symmetric chest movement; Negative for respiratory distress Cardio regular rate, regular rhythm and no murmurs Peripheral Pulses: pulses 2+ throughout GI normal to inspection, nondistended, normoactive bowel sounds and non-tender Palpation: Negative for guarding or rebound tenderness present Back/Spine no CVA tenderness and no thoracic nor lumbar tenderness Extremity normal to inspection General Extremety ED: Negative for edema or tenderness General Extremity: Negative for edema Neuro oriented x3 and no sensory deficits noted Sensorium / Orientation: awake and alert Skin no rashes or lesions noted and no wounds MDM MDM MDM Narrative Medical decision making narrative: Patient paced rhythm on EKG. Of note had no chest pains. Generalized myalgias with fatigue with reported what sounds like melena over the past week. He is on Coumadin. Work-up was initiated. Rapid flu and COVID-negative. Chest x-ray 2 views reviewed by myself and read by radiology shows no acute process. Laboratory studies returned hemoglobin 6.7 INR 2.7. Potassium 6.4 nonhemolyzed creatinine and BUN elevated however he is dialysis. He did not fully finish dialysis today. Rectal exam noted dark brown stools, Hemoccult did return positive. Protonix and drip started. He has never had an upper endoscopy in the past. Patient has been given blood in the past however is been years ago. There is no gross blood or active bright red blood I do not feel reversal is required. He did agree with blood transfusion 1 unit ordered at this time. He is given treatment for his hyperkalemia with aerosol treatments, insulin and glucose. 1140: Spoke with GI Dr. Shanks, updated on patient situation agrees with blood Protonix, no reversals at this time he will see him closely as an inpatient. Will discuss with hospitalist for admission. I spoke with Dr. Ramirez, for admission to PCU. Lab Data Attestation: I reviewed the patient's lab results. Labs: Laboratory Results - last 24 hr 07/23/22 07/23/22 07/23/22 10:05 10:05 10:05 WBC 6.9 RBC 2.09 L Hgb 6.7 L Hct 21.1 L MCV 101.0 H MCH 32.1 H MCHC 31.8 L RDW Std Deviation 55.0 H RDW Coeff of Dominique 15.4 H Plt Count 207 MPV 11.0 Immature Gran % (Auto) 0.900 Neut % (Auto) 75.2 H Lymph % (Auto) 13.1 L [place] % (Auto) 8.7 Eos % (Auto) 1.7 Baso % (Auto) 0.4 Absolute Neuts (auto) 5.2 Absolute Lymphs (auto) 0.90 Nucleated RBC % 0.3 PT 28.6 H INR 2.7 APTT 40.2 H Sodium 133 L Potassium 6.4 H* Chloride 95 L Carbon Dioxide 21.0 Anion Gap 17 H BUN 135 H* Creatinine 12.90 H* Estim Creat Clear Calc 5.74 Est GFR (MDRD) Af Amer 5 L Est GFR (MDRD) Non-Af 4 L BUN/Creatinine Ratio 10.5 Glucose 143 H Calcium 8.8 Total Bilirubin 0.40 AST 19 ALT 22 Alkaline Phosphatase 81 Total Protein 8.0 Albumin 3.3 Globulin 4.7 H Albumin/Globulin Ratio 0.7 L Radiography Diagnostic Testing: Clinical Impression(s) from Imaging Studies Chest X-Ray 07/23/22 10:25 IMPRESSION: Mild increased markings at the lung bases suggest bibasilar atelectasis with blunting of both costophrenic angles. There has been improvement as compared to prior study. Electronically Signed: Jairo Ewing MD at 10:50 EDT , EKG Initial EKG: Attestation: I personally reviewed and interpreted this EKG as follows: Comments: Paced rhythm rate of 60, no ST or T wave changes. Critical Care Time Critical Care Time: Yes Critical care time (excluding procedures): 30-74 minutes, Discussing w/Patient &/or Family/Spindraw Operator, Discussing w/Consultants, Arranging Admission or Transfer, Performing Direct Patient Care at Bedside and - (35 minutes) Discharge Plan Dx/Rx/DC Orders Clinical Impression: Chronic atrial fibrillation, Anemia, GI (gastrointestinal bleed), Acute hyperkalemia, ESRD on hemodialysis Disposition Disposition: Acute Care [facility]
--- NOTE | 2022-07-23 10:25 | RAD_ITS ---
STUDY: X-RAY CHEST REASON FOR EXAM: Male, 67 years old. Shortness of breath and cough. TECHNIQUE: PA and lateral views of the chest. COMPARISON: Comparison is made with prior study dated 06/25/2022. FINDINGS: EKG electrodes are seen. Since prior study, there has been improved aeration of the lungs. Residual increased markings at the lung bases suggest bibasilar atelectasis with blunting of both costophrenic angles. Sternal cerclage wires and vascular clips are present from a prior sternotomy and coronary artery bypass graft procedure (CABG). A left-sided dual-chamber pacemaker seen. Normal mediastinum and arleen. Normal visualized pulmonary arteries. Normal visualized aortic arch and descending thoracic aorta. There are diffuse degenerative changes of the visualized thoracic spine. Normal visualized ribs, clavicles, and shoulders. There is no demonstrated abnormality of the visualized soft tissue structures of the upper abdomen. RAD/Chest PA and Lateral IMPRESSION: Mild increased markings at the lung bases suggest bibasilar atelectasis with blunting of both costophrenic angles. There has been improvement as compared to prior study. Electronically Signed: Jairo Ewing MD at 10:50 EDT ,
[2022-07-23 10:36] LABS: International Normalized Ratio 2.7; Prothrombin Time (Protime)PT. 28.6 SECONDS (11.7-14.9)
[2022-07-23 10:37] LABS: Partial Thromboplast Time 40.2 Seconds (24.1-36.2)
[2022-07-23 10:42] LABS: ALB/GLOB Ratio 0.7 RATIO (0.9-2.4); AST(SGOT) 19 U/L (15-37); Alanine Aminotransfer ALT/SGPT 22 U/L (16-61); Albumin, Serum 3.3 g/dL (3.2-5.0); Alkaline Phosphatase 81 U/L (45-117); Anion Gap 17 (5-15); BUN 135 mg/dL (7-18); BUN/Creat Ratio 10.5 RATIO (10-20); Calcium,Total 8.8 mg/dL (8.5-10.1); Chloride 95 mmol/L (98-107); EST Glomerular Filtration Rate 4 mL/min (>60); Est Glom Filt Rate - Afr Amer 5 mL/min (>60); Estimated Creatinine Clearance 5.74 ml/min; Globulin 4.7 g/dL (2.2-4.2); Glucose 143 mg/dL (74-106); Potassium 6.4 mmol/L (3.5-5.1); Sodium Level 133 mmol/L (136-145)
[2022-07-23 10:47] LABS: Absolute Neutrophil Count 5.2 X10^3/uL (2.0-7.7); Basophil# 0.03 X10^3/uL; Basophil% 0.4 % (0-1); Eosinophil# 0.12 X10^3/uL; Eosinophils% 1.7 % (0-5); Hematocrit 21.1 % (40-54); Hemoglobin 6.7 g/dL (13.0-16.5); Lymphocyte % 13.1 % (19-41); Mean Corp Hgb Conc 31.8 g/dL (32-36); Mean Corpuscular Hgb 32.1 pg (27.0-32.0); Monocyte% 8.7 % (0-10); NRBC Flagged by Analyzer 0.3 % (0-5); Neutrophil # 5.15 X10^3/uL (2.7-7.7); Neutrophil % 75.2 % (47-70); Platelet Count 207 K/mm3 (150-450); RBC Distribution Width CV 15.4 % (11.6-14.6); Red Blood Count 2.09 M/mm3 (4.6-6.2); White Blood Count 6.9 K/mm3 (4.4-11.0)
[2022-07-23] MEDS: Dextrose 50%-Water 25 GM/50 ML DISP.SYRIN IV (11:13)
[2022-07-23] MEDS: Insulin Lispro 10 UNIT in Syringe 0 ML 6 UNIT IV (11:13)
[2022-07-23] MEDS: Albuterol *CONC* 2.5mg/0.5mL VIAL.NEB. 10 MG INHALATION (11:17)
--- NOTE | 2022-07-23 11:52 | NURSING ---
DR PERCY VALDES
--- NOTE | 2022-07-23 12:04 | NURSING ---
PCU [facility] BLEED, ANEMIA, HYPERKALEMIA, ESRD ON HD
--- NOTE | 2022-07-23 12:06 | HP.PCM.HOS_ITS ---
[facility] - General General Date of Admission: 07/23/22 Date of Service: 07/23/22 Chief Complaint: Generalized weakness. [facility] Narrative MACARENA BARRETT, is a 67 M 67-year-old gentleman with multiple comorbidities including mechanical mitral valve, paroxysmal A. fib/flutter on systemic anticoagulation with Coumadin who presents with generalized weakness. Patient also has history of end-stage renal disease and apparently developed significant fatigue following his dialysis on the morning of his admission. He had also noticed a week history of black stools. Presented to the emergency department as a result. Patient was found to be anemic with a hemoglobin of 6.7.. Patient was also found to have potassium of 6.4. Treatment initiated in the ED patient admitted to a monitored bed for further management [facility] Medical History Anemia due to chronic kidney disease, on chronic dialysis Anticoagulant long-term use Atrial flutter Chronic atrial fibrillation Chronic kidney disease COPD (chronic obstructive pulmonary disease) CRF (chronic renal failure) Diabetes mellitus ESRD (end stage renal disease) Hypercalcemia Hypertension Hypertension Hypothyroidism Iron deficiency anemia Metabolic acidosis Obstructive sleep apnea Pacemaker Sleep apnea Home Medications allopurinol 100 mg tablet 100 mg PO DAILYCM 07/12/16 [History Last Taken Unknown] sertraline 50 mg tablet 50 mg PO DAILY 07/12/16 [History Last Taken Unknown] warfarin 5 mg tablet 5 mg PO VELEZ 07/12/16 [History Last Taken Unknown] warfarin 7.5 mg tablet 7.5 mg PO MOTUWETHFRSA 11/09/19 [History Last Taken 05/23/20] iron 40 mg capsule 65 mg PO DAILY 06/25/22 [History Last Taken Unknown] midodrine 10 mg tablet 10 mg PO QODAY 06/25/22 [History Last Taken Unknown] sevelamer HCl 800 mg tablet 800 mg PO DAILY 06/25/22 [History Last Taken Unknown] vitamin B complex and vitamin C no.20-folic acid 1 mg capsule (Triphrocaps) 1 ca p PO DAILY 06/25/22 [History Last Taken Unknown] levothyroxine 150 mcg tablet 300 mcg PO DAILY@0600 #60 tabs 06/26/22 [Rx Last Taken Unknown] Allergy/AdvReac Type Severity Reaction Status Date / Time Sulfa (Sulfonamide Allergy Intermediate PT NOT SURE Verified 06/25/22 08:09 Antibiotics) Family History (Updated 07/23/22 @ 12:[address] 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 Smoking Status: Former smoker alcohol intake: never substance use type: does not use ROS ROS Narrative GENERAL: Fatigue HEENT: denies headache, sinus congestion, RESPIRATORY: shortness of breath, CARDIAC: denies chest pain, palpitations, orthopnea, GASTROINTESTINAL: melena, GENITOURINARY: denies dysuria, urgency, frequency, EXTREMITY: denies swelling MUSCULOSKELETAL: denies current joint pain or tenderness NEUROLOGIC: denies focal numbness, weakness, tingling HEMATOLOGIC: denies easy bruising and/or hemorrhage INTEGUMENT: denies rashes PSYCHIATRIC: denies suicidal or homicidal ideation Vital Signs Vital Signs Vital Signs: 07/23/22 09:16 07/23/22 09:37 07/23/22 09:48 Temperature 96.8 F L Temperature Source Temporal Pulse Rate 61 Respiratory Rate 16 Respiratory Effort Normal Non-Labored Blood Pressure 96/48 L Blood Pressure Mean 64 Pulse Ox 98 97 Oxygen Delivery Method Room Air Nasal Cannula Oxygen Flow Rate (L/min) 4 07/23/22 11:25 Temperature Temperature Source Pulse Rate 62 Respiratory Rate 22 H Respiratory Effort Blood Pressure 101/53 L Blood Pressure Mean 69 Pulse Ox 99 Oxygen Delivery Method Nasal Cannula Oxygen Flow Rate (L/min) 4 Weight Weight: 114 kg Body Mass Index (BMI) 36.0 Physical Exam Narrative GENERAL: cooperative HEENT: Atraumatic; normocephalic EYES; Anicteric, Normal Conjunctiva NECK; supple, normal thyroid, RESPIRATORY: Diminished to auscultation CARDIOVASCULAR: Regular S1 S2, systolic click GI: soft, normoactive bowel sounds, : No Renal angle tenderness; EXTREMITIES: No edema, no clubbing, MUSCULOSKELETAL: no muscle wasting NEURO: Awake; no lateralizing signs. SKIN: Bruises upper extremity PSYCH; Flat affect Results Lab / Micro Data Result Diagrams: 07/23/22 10:05 07/23/22 10:05 Labs: Laboratory Results - last 24 hr 07/23/22 10:05: WBC 6.9, RBC 2.09 L, Hgb 6.7 L, Hct 21.1 L, MCV 101.0 H, MCH 32.1 H, MCHC 31.8 L, RDW Std Deviation 55.0 H, RDW Coeff of Dominique 15.4 H, Plt Count 207, MPV 11.0, Immature Gran % (Auto) 0.900, Neut % (Auto) 75.2 H, Lymph % (Auto) 13.1 L, [place] % (Auto) 8.7, Eos % (Auto) 1.7, Baso % (Auto) 0.4, Absolute Neuts (auto) 5.2, Absolute Lymphs (auto) 0.90, Nucleated RBC % 0.3 07/23/22 10:05: PT 28.6 H, INR 2.7, APTT 40.2 H 07/23/22 10:05: Sodium 133 L, Potassium 6.4 H*, Chloride 95 L, Carbon Dioxide 21.0, Anion Gap 17 H, BUN 135 H*, Creatinine 12.90 H*, Estim Creat Clear Calc 5.74, Est GFR (MDRD) Af Amer 5 L, Est GFR (MDRD) Non-Af 4 L, BUN/Creatinine Ratio 10.5, Glucose 143 H, Calcium 8.8, Total Bilirubin 0.40, AST 19, ALT 22, Alkaline Phosphatase 81, Total Protein 8.0, Albumin 3.3, Globulin 4.7 H, Albumin/Globulin Ratio 0.7 L Micro: Microbiology 07/23/22 10:50 Stool Stool Occult Blood (FILI) - Final Occult Blood Positive 07/23/22 10:10 Nasal Secretion SARS-CoV-2 & FLU Antigen (Rapid) - Final Radiology Impression Chest X-Ray 07/23/22 10:25 IMPRESSION: Mild increased markings at the lung bases suggest bibasilar atelectasis with blunting of both costophrenic angles. There has been improvement as compared to prior study. Electronically Signed: Jairo Ewing MD at 10:50 EDT , Assessment & Plan Assessment/Plan (1) Anemia: PLAN: Plan Patient is a 67-year-old gentleman with history of end-stage renal disease, mitral valve replacement with mechanical valve, paroxysmal A. fib flutter on systemic anticoagulation presented with progressive generalized weakness found to be anemic with hemoglobin of 6.7 and hyperkalemic with potassium of 6.4 admitted to monitored bed 1. Anemia ? Secondary to acute on chronic blood loss from the GI tract. Patient did experience melenic stools. Most the patient is on systemic anticoagulation with warfarin. Patient started on Protonix drip type and screen H&H ordered every 4 and consultation placed to GI 2. Hyperkalemia ? Secondary to patient end-stage renal disease treatment initiated in the ED subsequent serial BMPs ordered consultation placed to nephrology 3. End-stage renal disease ? On hemodialysis on Wednesdays and Fridays consult placed to nephrology for dialysis orders 4. Valvular heart disease with mechanical valve replacement of the mitral valve ? Patient is on systemic anticoagulation with warfarin INR is therapeutic. Daily INR ordered for monitoring target 2.5-3.5 5. Paroxysmal A. fib flutter ? Rate controlled on systemic anticoagulation with warfarin 6. Monoclonal gammopathy of unknown significance ? Currently stable 7. Hypothyroidism - Patient is on levothyroxine home dose continued 8. Gout ? Patient is on allopurinol did continue 9. DVT prophylaxis ? Patient is systemic anticoagulation with Coumadin Charges/Coding Visit Charges Inpatient E&M: 32349 Init Hosp L3
--- NOTE | 2022-07-23 12:47 | EKG12_ITS ---
Test Reason : PRE OP Blood Pressure : / mmHG Vent. Rate : 060 BPM Atrial Rate : 060 BPM P-R Int : 276 ms QRS Dur : 102 ms QT Int : 430 ms P-R-T Axes : -28 077 034 degrees QTc Int : 430 ms Atrial-paced rhythm with prolonged AV conduction Incomplete right bundle branch block Nonspecific ST abnormality Abnormal ECG Confirmed by LEIGH ANN DANIELS, LUDA ([id number]), editor in chief ALLA WELLS ([id number]) on 07/25/2022 9:34:57 AM Referred By: Confirmed By:LUDA BELTRÁN MD
[2022-07-23 13:16] LABS: Hematocrit 19.5 % (40-54); Hemoglobin 6.3 g/dL (13.0-16.5)
--- NOTE | 2022-07-23 16:18 | CON.PCM.RE_ITS ---
Assessment & Plan Assessment/Plan (1) ESRD on hemodialysis: PLAN: ESRD on dialysis Saturday, Saturday, Saturday schedule. He tells me that he had dialysis most of his treatment except for the last half an hour. However on review of his labs his BUN is 135 creatinine is about 13 and potassium is 6.4. Likely he missed dialysis treatments within the last few days. He is currently getting blood transfusion in view of anemia. We will plan for dialysis today. Notified dialysis staff (2) Acute hyperkalemia: PLAN: Dialysis on 2K bath today. Will assess for dialysis tomorrow again. (3) Anemia: PLAN: Getting blood transfusion. Will call dialysis unit for recent erythropoietin administration records. HPI Consult Data Date of Consult: 07/23/22 HPI Narrative Reason for Consultation: ESRD HPI Narrative: MACARENA BARRETT, is a 67 M who presents to the hospital with severe anemia. Nephrology on consultation for ESRD. Known history of ESRD, on dialysis Saturday, Saturday, Saturday setting. Right arm AV fistula for access. He goes to [facility] in [place]. 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 Cantu. He was sent in because of anemia. currently denies any complaints [facility] Medical History Anemia due to chronic kidney disease, on chronic dialysis Anticoagulant long-term use Atrial flutter Chronic atrial fibrillation Chronic kidney disease COPD (chronic obstructive pulmonary disease) CRF (chronic renal failure) Diabetes mellitus ESRD (end stage renal disease) Hypercalcemia Hypertension Hypertension Hypothyroidism Iron deficiency anemia Metabolic acidosis Obstructive sleep apnea Pacemaker Sleep apnea Home Medications allopurinol 100 mg tablet 100 mg PO DAILYCM Check with primary doctor 07/12/16 [History Last Taken Unknown] sertraline 50 mg tablet 50 mg PO DAILY Check with primary doctor 07/12/16 [History Last Taken Unknown] warfarin 5 mg tablet 5 mg PO VELEZ Check with primary doctor 07/12/16 [History Last Taken Unknown] warfarin 7.5 mg tablet 7.5 mg PO MOTUWETHFRSA Check with primary doctor 11/09/19 [History Last Taken 05/23/20] iron 40 mg capsule 65 mg PO DAILY Check with primary doctor 06/25/22 [History Last Taken Unknown] midodrine 10 mg tablet 10 mg PO QODAY Check with primary doctor 06/25/22 [History Last Taken Unknown] sevelamer HCl 800 mg tablet 800 mg PO DAILY Check with primary doctor 06/25/22 [History Last Taken Unknown] vitamin B complex and vitamin C no.20-folic acid 1 mg capsule (Triphrocaps) 1 cap PO DAILY Check with primary doctor 06/25/22 [History Last Taken Unknown] levothyroxine 150 mcg tablet 300 mcg PO DAILY@0600 Check with primary doctor 07/23/22 [History Last Taken Unknown] Allergy/AdvReac Type Severity Reaction Status Date / Time Sulfa (Sulfonamide Allergy Intermediate PT NOT SURE Verified 06/25/22 08:09 Antibiotics) Family History (Updated 07/23/22 @ 12:[address] 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 Smoking Status: Former smoker alcohol intake: never substance use type: does not use ROS ROS Narrative negative except above Physical Exam Narrative Alert awake oriented x 3 no obvious distress no pallor no icterus no JVD s1s2 no murmurs lungs clear abdomen soft no organomegaly no edema no cyanosis Lab / Micro Data Result Diagrams: 07/23/22 13:06 07/23/22 10:05 Labs: Laboratory Results - last 24 hr 07/23/22 10:05: WBC 6.9, RBC 2.09 L, Hgb 6.7 L, Hct 21.1 L, MCV 101.0 H, MCH 32.1 H, MCHC 31.8 L, RDW Std Deviation 55.0 H, RDW Coeff of Dominique 15.4 H, Plt Count 207, MPV 11.0, Immature Gran % (Auto) 0.900, Neut % (Auto) 75.2 H, Lymph % (Auto) 13.1 L, [place] % (Auto) 8.7, Eos % (Auto) 1.7, Baso % (Auto) 0.4, Absolute Neuts (auto) 5.2, Absolute Lymphs (auto) 0.90, Nucleated RBC % 0.3 07/23/22 10:05: PT 28.6 H, INR 2.7, APTT 40.2 H 07/23/22 10:05: Sodium 133 L, Potassium 6.4 H*, Chloride 95 L, Carbon Dioxide 21.0, Anion Gap 17 H, BUN 135 H*, Creatinine 12.90 H*, Estim Creat Clear Calc 5. 74, Est GFR (MDRD) Af Amer 5 L, Est GFR (MDRD) Non-Af 4 L, BUN/Creatinine Ratio 10.5, Glucose 143 H, Calcium 8.8, Total Bilirubin 0.40, AST 19, ALT 22, Alkaline Phosphatase 81, Total Protein 8.0, Albumin 3.3, Globulin 4.7 H, Albumin/Globulin Ratio 0.7 L 07/23/22 11:54: Blood Type O POSITIVE, Antibody Screen NEGATIVE, Crossmatch See Detail 07/23/22 13:06: Hgb 6.3 L, Hct 19.5 L Micro: Microbiology 07/23/22 10:50 Stool Stool Occult Blood (FILI) - Final Occult Blood Positive 07/23/22 10:10 Nasal Secretion SARS-CoV-2 & FLU Antigen (Rapid) - Final Radiology Impression Chest X-Ray 07/23/22 10:25 IMPRESSION: Mild increased markings at the lung bases suggest bibasilar atelectasis with blunting of both costophrenic angles. There has been improvement as compared to prior study. Electronically Signed: Jairo Ewing MD at 10:50 EDT ,
--- NOTE | 2022-07-23 18:34 | CON.PCM_ITS ---
Assessment & Plan Assessment/Plan (1) GI (gastrointestinal bleed): PLAN: GI bleed as a cause of his acute blood loss anemia. Differential diagnosis for upper GI bleed would be angiodysplasia, peptic ulcer disease, neoplasia, gastric antral vascular ectasia, Twan's erosions. He will undergo an upper endoscopy tomorrow he was explained alternatives, risk, benefits include not withstanding bleeding, infection, sepsis, perforation, need for emergent urgent . He will have an ASA of 3. Continue to hold his Coumadin. Check his INR in the morning and if it is greater than 2 he will need vitamin K or fresh frozen plasma. HPI Consult Data Date of Consult: 07/23/22 HPI Narrative Reason for Consultation: Iron deficiency anemia HPI Narrative: MACARENA BARRETT, is a 67 M who presents after leaving dialysis 30 minutes early.? He has had chills and myalgias over the weekend.? Started having cough.? No fevers or headache.? Reports diarrhea twice a day for the past week.? No recent antibiotics.? Reports stools are black in color.? He is not on iron.? Denies bloody stools.? Denies abdominal pain.? Denies chest pains.? In the ED his hemoglobin was determined to be 6.3 which is down from 12.6. He is currently getting a blood transfusion at this time. He is on chronic 4 L of oxygen history of COPD heart failure.? At this time at the bedside he is not have any need for oxygen. He has been dialysis for last 2 years Fridays.? COVID vaccinated without infections in the past.? He received influenza vaccine this year.? Denies sick contacts.? Minimal urine output states mild not once a day.? He is on warfarin for history of chronic A. fib with pacemaker.? 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 [facility] Medical History Anemia due to chronic kidney disease, on chronic dialysis Anticoagulant long-term use Atrial flutter Chronic atrial fibrillation Chronic kidney disease COPD (chronic obstructive pulmonary disease) CRF (chronic renal failure) Diabetes mellitus ESRD (end stage renal disease) Hypercalcemia Hypertension Hypertension Hypothyroidism Iron deficiency anemia Metabolic acidosis Obstructive sleep apnea Pacemaker Sleep apnea Home Medications allopurinol 100 mg tablet 100 mg PO DAILYCM Check with primary doctor 07/12/16 [History Last Taken Unknown] sertraline 50 mg tablet 50 mg PO DAILY Check with primary doctor 07/12/16 [History Last Taken Unknown] warfarin 5 mg tablet 5 mg PO VELEZ Check with primary doctor 07/12/16 [History Last Taken Unknown] warfarin 7.5 mg tablet 7.5 mg PO MOTUWETHFRSA Check with primary doctor 11/09/19 [History Last Taken 05/23/20] iron 40 mg capsule 65 mg PO DAILY Check with primary doctor 06/25/22 [History Last Taken Unknown] midodrine 10 mg tablet 10 mg PO QODAY Check with primary doctor 06/25/22 [History Last Taken Unknown] sevelamer HCl 800 mg tablet 800 mg PO DAILY Check with primary doctor 06/25/22 [History Last Taken Unknown] vitamin B complex and vitamin C no.20-folic acid 1 mg capsule (Triphrocaps) 1 cap PO DAILY Check with primary doctor 06/25/22 [History Last Taken Unknown] levothyroxine 150 mcg tablet 300 mcg PO DAILY@0600 Check with primary doctor 07/23/22 [History Last Taken Unknown] Allergy/AdvReac Type Severity Reaction Status Date / Time Sulfa (Sulfonamide Allergy Intermediate PT NOT SURE Verified 06/25/22 08:09 Antibiotics) Family History (Updated 07/23/22 @ 12:[address] 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 Smoking Status: Former smoker alcohol intake: never substance use type: does not use ROS Constitutional Constitutional: Denies anorexia, change in weight, chills, fatigue, fever(s), malaise, night sweats, weakness or other Eyes Eyes: Denies blurry vision, change in eye color, change in vision, discharge from eye(s), double vision, erythema, eye pain, loss of vision or other ENT HEENT: Reports abnormal hearing and hearing loss; Denies dysphagia, ear pain, epistaxis, headache(s), nasal congestion, nasal discharge, post nasal drip, sinus pressure, sore throat or other Cardiovascular Cardiovascular: Reports orthopnea and paroxysmal nocturnal dyspnea; Denies chest pain, claudication, dyspnea on exertion, edema, lightheadedness, palpitations, rapid heart rate, syncope or other Respiratory/Chest Respiratory/Chest: Reports cough, dyspnea, productive cough and shortness of breath with exertion; Denies excessive phlegm production, hemoptysis, shortness of breath at rest, wheezing or other Gastrointestinal Gastrointestinal: Denies abdominal pain, coffee ground emesis, constipation, diarrhea, dyspepsia, hematemesis, hematochezia, loose stools, melena, nausea, vomiting or other Genitourinary Genitourinary: Denies burning urination, difficulty urinating, dysuria, hematuria, nocturia, urinary frequency, urinary hesitancy, urinary incontinence, urinary urgency or other Musculoskeletal Musculoskeletal: Denies arthralgias, back pain, joint pain, joint stiffness, joint swelling, myalgias, neck pain or other Neurologic Neurologic: Denies abnormal gait, abnormal speech, confusion, disequilibrium, dizziness, focal weakness, headache(s), numbness, paresthesias, seizure-like activity, seizures, syncope, tingling, tremor(s) or other Psychiatric Psychiatric: Denies anxiety, depression, homicidal ideation, suicidal ideation or other Endocrine Endocrinology: Denies change in body appearance, cold intolerance, excessive sweating, heat intolerance, polydipsia, polyuria or other Hematologic/Lymphatic Hematologic/Lymphatic: Denies anemia, easy bleeding, easy bruising, lymphadenopathy or other Allergic/Immunologic Allergic/Immunologic: Denies rhinitis, hives, eczemia, asthma or other Physical Exam Narrative Alert awake oriented x 3 no obvious distress no pallor no icterus no JVD s1s2 no murmurs lungs clear abdomen soft no organomegaly no edema no cyanosis Lab / Micro Data Result Diagrams: 07/23/22 13:06 07/23/22 10:05 Labs: Laboratory Results - last 24 hr 07/23/22 10:05: WBC 6.9, RBC 2.09 L, Hgb 6.7 L, Hct 21.1 L, MCV 101.0 H, MCH 32.1 H, MCHC 31.8 L, RDW Std Deviation 55.0 H, RDW Coeff of Dominique 15.4 H, Plt Count 207, MPV 11.0, Immature Gran % (Auto) 0.900, Neut % (Auto) 75.2 H, Lymph % (Auto) 13.1 L, [place] % (Auto) 8.7, Eos % (Auto) 1.7, Baso % (Auto) 0.4, Absolute Neuts (auto) 5.2, Absolute Lymphs (auto) 0.90, Nucleated RBC % 0.3 07/23/22 10:05: PT 28.6 H, INR 2.7, APTT 40.2 H 07/23/22 10:05: Sodium 133 L, Potassium 6.4 H*, Chloride 95 L, Carbon Dioxide 21.0, Anion Gap 17 H, BUN 135 H*, Creatinine 12.90 H*, Estim Creat Clear Calc 5.74, Est GFR (MDRD) Af Amer 5 L, Est GFR (MDRD) Non-Af 4 L, BUN/Creatinine Ratio 10.5, Glucose 143 H, Calcium 8.8, Total Bilirubin 0.40, AST 19, ALT 22, Alkaline Phosphatase 81, Total Protein 8.0, Albumin 3.3, Globulin 4.7 H, Albumin/Globulin Ratio 0.7 L 07/23/22 11:54: Blood Type O POSITIVE, Antibody Screen NEGATIVE, Crossmatch See Detail 07/23/22 13:06: Hgb 6.3 L, Hct 19.5 L Micro: Microbiology 07/23/22 10:50 Stool Stool Occult Blood (FILI) - Final Occult Blood Positive 07/23/22 10:10 Nasal Secretion SARS-CoV-2 & FLU Antigen (Rapid) - Final Radiology Impression Chest X-Ray 07/23/22 10:25 IMPRESSION: Mild increased markings at the lung bases suggest bibasilar atelectasis with blunting of both costophrenic angles. There has been improvement as compared to prior study. Electronically Signed: Jairo Ewing MD at 10:50 EDT , Charges/Coding Visit Charges Inpatient E&M: 53952 Init Hosp L2
[2022-07-23 20:37] LABS: Hematocrit 21.2 % (40-54); Hemoglobin 6.8 g/dL (13.0-16.5)
--- NOTE | 2022-07-23 20:53 | DIALYSIS ---
HD x2 hours completed at 2014 on a 2K bath, tolerated well, UF 700mL, abdominal cramping with greater UF goal, pre BP 106/50, post BP 113/57, accessed via RFA AVF using 16G needles, worked well, needles pulled post tx and stasis achieved without issue, unit PRBCs given prior to HD today; pt reports receiving all but 45 mins of his tx earlier today at [facility]
[2022-07-23] MEDS: 0.9% Saline Lock 10 ML Syringe IV (21:54)
[2022-07-24] VITALS (19 sets, daily range): BP systolic 84–129; BP diastolic 46–77; PULSE 58–77; RESP 16–18; TEMP 36.2–36.8; O2SAT 96–99; BMI 35.9
--- NOTE | 2022-07-24 05:55 | EKG12_ITS ---
Test Reason : cp Blood Pressure : / mmHG Vent. Rate : 060 BPM Atrial Rate : 060 BPM P-R Int : 276 ms QRS Dur : 104 ms QT Int : 420 ms P-R-T Axes : -25 072 041 degrees QTc Int : 420 ms Atrial-paced rhythm with prolonged AV conduction Incomplete right bundle branch block Abnormal ECG Confirmed by LEIGH ANN DANIELS, LUDA ([id number]), scientific publications editor ALLA WELLS ([id number]) on 07/25/2022 9:35:17 AM Referred By: Ashley Confirmed By:LUDA BELTRÁN MD
[2022-07-24 06:09] LABS: Absolute Lymphocyte Count 0.79 X10^3/uL (0.83-4.51); Absolute Neutrophil Count 4.4 X10^3/uL (2.0-7.7); Basophil# 0.03 X10^3/uL; Basophil% 0.5 % (0-1); Eosinophil# 0.14 X10^3/uL; Eosinophils% 2.4 % (0-5); Hematocrit 23.3 % (40-54); Hemoglobin 7.6 g/dL (13.0-16.5); Lymphocyte # 0.79 X10^3/ul (0.83-4.51); Lymphocyte % 13.4 % (19-41); Mean Corp Hgb Conc 32.6 g/dL (32-36); Mean Corpuscular Hgb 31.8 pg (27.0-32.0); Mean Corpuscular Volume 97.5 fL (80-94); Mean Platelet Vol. 11.1 fl (6.2-12.0); Monocyte# 0.51 X10^3/uL; Monocyte% 8.7 % (0-10); NRBC Flagged by Analyzer 0.3 % (0-5); Neutrophil # 4.35 X10^3/uL (2.7-7.7); Platelet Count 195 K/mm3 (150-450); RBC Distribution Width CV 15.9 % (11.6-14.6); RBC Distribution Width SD 54.5 fl (35.1-43.9); Red Blood Count 2.39 M/mm3 (4.6-6.2); White Blood Count 5.9 K/mm3 (4.4-11.0)
[2022-07-24 06:25] LABS: International Normalized Ratio 2.3; Prothrombin Time (Protime)PT. 24.8 SECONDS (11.7-14.9)
[2022-07-24 06:26] LABS: Partial Thromboplast Time 40.4 Seconds (24.1-36.2)
[2022-07-24 06:45] LABS: Phosphorus 7.7 mg/dL (2.5-4.9)
[2022-07-24 06:51] LABS: Anion Gap 12 (5-15); BUN 109 mg/dL (7-18); BUN/Creat Ratio 9.3 RATIO (10-20); Calcium,Total 8.6 mg/dL (8.5-10.1); Chloride 97 mmol/L (98-107); EST Glomerular Filtration Rate 5 mL/min (>60); Est Glom Filt Rate - Afr Amer 6 mL/min (>60); Estimated Creatinine Clearance 6.33 ml/min; Glucose 110 mg/dL (74-106); Magnesium 2.3 mg/dL (1.6-2.6); Potassium 5.8 mmol/L (3.5-5.1); Sodium Level 134 mmol/L (136-145)
--- NOTE | 2022-07-24 07:41 | PCM.PN.HOSP ---
Subjective Subjective Patient was seen in consultation by GI plan for patient to undergo EGD this morning. Case discussed with Dr. Shanks Objective Data Objective Data Vital Signs: Vital Signs Temp Pulse Resp BP Pulse Ox O2 Del Method O2 Flow Rate 97.6 F L 60 16 94/46 L 97 Nasal Cannula 2 07/24/22 04:47 07/24/22 07:00 07/24/22 04:47 07/24/22 04:47 07/24/22 04:53 07/24/22 04:53 07/24/22 04:53 Oxygen Flow Rate (L/min) 2 Oxygen Delivery Method Nasal Cannula Weight: 113.7 kg Body Mass Index (BMI) 35.9 Intake & Output: Intake and Output for Last 24 Hours 07/22/22 07/23/22 07/24/22 23:59 23:59 23:59 Intake Total 986.5 / 986.5 400 / 400 Output Total 700 / 700 Balance 286.5 / 286.5 400 / 400 Lab / Micro Data Result Diagrams: 07/24/22 05:35 07/24/22 05:35 Labs: Laboratory Results - last 24 hr 07/23/22 10:05: WBC 6.9, RBC 2.09 L, Hgb 6.7 L, Hct 21.1 L, MCV 101.0 H, MCH 32.1 H, MCHC 31.8 L, RDW Std Deviation 55.0 H, RDW Coeff of Dominique 15.4 H, Plt Count 207, MPV 11.0, Immature Gran % (Auto) 0.900, Neut % (Auto) 75.2 H, Lymph % (Auto) 13.1 L, [place] % (Auto) 8.7, Eos % (Auto) 1.7, Baso % (Auto) 0.4, Absolute Neuts (auto) 5.2, Absolute Lymphs (auto) 0.90, Nucleated RBC % 0.3 07/23/22 10:05: PT 28.6 H, INR 2.7, APTT 40.2 H 07/23/22 10:05: Sodium 133 L, Potassium 6.4 H*, Chloride 95 L, Carbon Dioxide 21.0, Anion Gap 17 H, BUN 135 H*, Creatinine 12.90 H*, Estim Creat Clear Calc 5.74, Est GFR (MDRD) Af Amer 5 L, Est GFR (MDRD) Non-Af 4 L, BUN/Creatinine Ratio 10.5, Glucose 143 H, Calcium 8.8, Total Bilirubin 0.40, AST 19, ALT 22, Alkaline Phosphatase 81, Total Protein 8.0, Albumin 3.3, Globulin 4.7 H, Albumin/Globulin Ratio 0.7 L 07/23/22 11:54: Blood Type O POSITIVE, Antibody Screen NEGATIVE, Crossmatch See Detail 07/23/22 11:54: Crossmatch See Detail 07/23/22 13:06: Hgb 6.3 L, Hct 19.5 L 07/23/22 20:15: Hgb 6.8 L, Hct 21.2 L 07/24/22 05:35: Sodium 134 L, Potassium 5.8 H, Chloride 97 L, Carbon Dioxide 25.0, Anion Gap 12, BUN 109 H*, Creatinine 11.70 H*, Estim Creat Clear Calc 6.33, Est GFR (MDRD) Af Amer 6 L, Est GFR (MDRD) Non-Af 5 L, BUN/Creatinine Ratio 9.3 L, Glucose 110 H, Calcium 8.6, Magnesium 2.3 07/24/22 05:35: WBC 5.9, RBC 2.39 L, Hgb 7.6 L, Hct 23.3 L, MCV 97.5 H, MCH 31.8, MCHC 32.6, RDW Std Deviation 54.5 H, RDW Coeff of Dominique 15.9 H, Plt Count 195, MPV 11.1, Immature Gran % (Auto) 1.000 H, Neut % (Auto) 74.0 H, Lymph % (Auto) 13.4 L, [place] % (Auto) 8.7, Eos % (Auto) 2.4, Baso % (Auto) 0.5, Absolute Neuts (auto) 4.4, Absolute Lymphs (auto) 0.79 L, Nucleated RBC % 0.3 07/24/22 05:35: Phosphorus 7.7 H, TSH 42.60 H 07/24/22 05:35: PT 24.8 H, INR 2.3, APTT 40.4 H Micro: Microbiology 07/23/22 10:50 Stool Stool Occult Blood (FILI) - Final Occult Blood Positive 07/23/22 10:10 Nasal Secretion SARS-CoV-2 & FLU Antigen (Rapid) - Final Radiography Diagnostic Testing: Radiology Impression Chest X-Ray 07/23/22 10:25 IMPRESSION: Mild increased markings at the lung bases suggest bibasilar atelectasis with blunting of both costophrenic angles. There has been improvement as compared to prior study. Electronically Signed: Jairo Ewing MD at 10:50 EDT , Physical Exam Narrative GENERAL: cooperative HEENT: Atraumatic; normocephalic EYES; Anicteric, Normal Conjunctiva NECK; supple, normal thyroid, RESPIRATORY: Diminished to auscultation CARDIOVASCULAR: Regular S1 S2, systolic click GI: soft, normoactive bowel sounds, : No Renal angle tenderness; EXTREMITIES: No edema, no clubbing, MUSCULOSKELETAL: no muscle wasting NEURO: Awake; no lateralizing signs. SKIN: Bruises upper extremity PSYCH; Flat affect Assessment & Plan Assessment/Plan (1) Anemia: PLAN: Plan Patient is a 67-year-old gentleman with history of end-stage renal disease, mitral valve replacement with mechanical valve, paroxysmal A. fib flutter on systemic anticoagulation presented with progressive generalized weakness found to be anemic with hemoglobin of 6.7 and hyperkalemic with potassium of 6.4 admitted to monitored bed 1. Anemia ? Secondary to acute on chronic blood loss from the GI tract. Patient did experience melenic stools. Most the patient is on systemic anticoagulation with warfarin. Patient started on Protonix drip type and screen H&H ordered every 4 and consultation placed to GI -07/24/2022; patient was transfused with 2 unit PRBC patient was seen in consultation by GI plan for patient to undergo EGD this morning. Case discussed with Dr. Shanks. We will continue with monitoring with daily H&H 2. Hyperkalemia ? Secondary to patient end-stage renal disease treatment initiated in the ED subsequent serial BMPs ordered consultation placed to nephrology ? 07/24/2022 patient potassium remains elevated at 5.8 was seen by nephrology. Plan is for patient to undergo dialysis with 2K bath repeat labs ordered for a.m. 3. End-stage renal disease ? On hemodialysis on Wednesdays and Fridays consult placed to nephrology for dialysis orders ? 07/24/2022 seen in consultation by nephrology 4. Valvular heart disease with mechanical valve replacement of the mitral valve ? Patient is on systemic anticoagulation with warfarin INR is therapeutic. Daily INR ordered for monitoring target 2.5-3.5 ? 07/24/2022 plan is to resume patient Coumadin as soon as possible given the presence of a mechanical heart valve 5. Paroxysmal A. fib flutter ? Rate controlled on systemic anticoagulation with warfarin ? 07/24/2022 patient Coumadin was held, plan is to resume following his EGD 6. Monoclonal gammopathy of unknown significance ? Currently stable 7. Hypothyroidism - Patient is on levothyroxine home dose continued 8. Gout ? Patient is on allopurinol did continue 9. DVT prophylaxis ? Patient is systemic anticoagulation with Coumadin Charges/Coding Visit Charges Inpatient E&M: 45580 [facility] Hosp L3
--- NOTE | 2022-07-24 12:00 | CASEMGMT ---
HARI SHAFER assessment: Face to Face with patient for initial transition planning/care coordination assessment. HARI SHAFER introduced self and role at [facility], pt voices understanding and consents to assessment. Pt is standing up at bedside during assessment in no distress. Pt is on room air in no distress.? Care providers, pharmacy,?and demographics verified. ? Presentation: Pt c/o CP all weekend Admitting dx: GI bleed PCP: Shekhar Williamson Specialists: none Preferred Pharmacy: [facility] Insurance: [employer]/MCR A Prescription Benefit:?[employer] Living Will/HPOA: Pt has LW/HPOA and is aware that they are not on file at [facility]. Pt's , Betsy Stevenson, is HPOA. LNOK: Betsy Stevenson, Living Arrangements: Pt lives with in 1 story home and states no concerns at home. Pt states is independent with ADL's. Transportation: Pt drives self and states no transportation concerns. DME/HHC: Pt has a cane, WW, and home oxygen 2L at rest and 6L w/ exertion thru [place]. Pt states no need for any further DME. Pt states no hx of HHC or SNF. Pt states no concerns with going home at time of discharge. 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 Pt states does not smoke cigarettes or drink ETOH. Pt voices no further concerns/needs. CM to follow for any further discharge planning/needs. Advised pt to ask for CM if any further questions/concerns/needs arise, voices understanding. Pt Goal: Home ? Plan[place] HARI SHAFER
--- NOTE | 2022-07-24 14:15 | PN.RENAL_ITS ---
Subjective Subjective No new complaints Objective Data Objective Data Vital Signs: Vital Signs Temp Pulse Resp BP Pulse Ox O2 Del Method O2 Flow Rate 97.4 F L 63 18 109/66 96 Nasal Cannula 2 07/24/22 09:35 07/24/22 09:35 07/24/22 09:35 07/24/22 09:35 07/24/22 09:35 07/24/22 09:35 07/24/22 09:35 Oxygen Flow Rate (L/min) 2 Oxygen Delivery Method Nasal Cannula Weight: 113.7 kg Body Mass Index (BMI) 35.9 Intake & Output: Intake and Output for Last 24 Hours 07/22/22 07/23/22 07/24/22 23:59 23:59 23:59 Intake Total 986.5 / 986.5 500 / 500 Output Total 700 / 700 Balance 286.5 / 286.5 500 / 500 Lab / Micro Data Result Diagrams: 07/24/22 05:35 07/24/22 05:35 Labs: Laboratory Results - last 24 hr 07/23/22 11:54: Blood Type O POSITIVE, Antibody Screen NEGATIVE, Crossmatch See Detail 07/23/22 11:54: Crossmatch See Detail 07/23/22 20:15: Hgb 6.8 L, Hct 21.2 L 07/24/22 05:35: Sodium 134 L, Potassium 5.8 H, Chloride 97 L, Carbon Dioxide 25.0, Anion Gap 12, BUN 109 H*, Creatinine 11.70 H*, Estim Creat Clear Calc 6.33, Est GFR (MDRD) Af Amer 6 L, Est GFR (MDRD) Non-Af 5 L, BUN/Creatinine Ratio 9.3 L, Glucose 110 H, Calcium 8.6, Magnesium 2.3 07/24/22 05:35: WBC 5.9, RBC 2.39 L, Hgb 7.6 L, Hct 23.3 L, MCV 97.5 H, MCH 31.8, MCHC 32.6, RDW Std Deviation 54.5 H, RDW Coeff of Dominique 15.9 H, Plt Count 195, MPV 11.1, Immature Gran % (Auto) 1.000 H, Neut % (Auto) 74.0 H, Lymph % (Auto) 13.4 L, [place] % (Auto) 8.7, Eos % (Auto) 2.4, Baso % (Auto) 0.5, Absolute Neuts (auto) 4.4, Absolute Lymphs (auto) 0.79 L, Nucleated RBC % 0.3 07/24/22 05:35: Phosphorus 7.7 H, TSH 42.60 H 07/24/22 05:35: PT 24.8 H, INR 2.3, APTT 40.4 H Micro: Microbiology 07/23/22 10:50 Stool Stool Occult Blood (FILI) - Final Occult Blood Positive 07/23/22 10:10 Nasal Secretion SARS-CoV-2 & FLU Antigen (Rapid) - Final Physical Exam Narrative Alert awake oriented x 3 no obvious distress no pallor no icterus no JVD s1s2 no murmurs lungs clear abdomen soft no organomegaly no edema no cyanosis Assessment & Plan Assessment/Plan (1) ESRD on hemodialysis: PLAN: ESRD on dialysis Saturday, Saturday, Saturday schedule. Repeat dialysis again today due to hyperkalemia. (2) Acute hyperkalemia: PLAN: Dialysis on 2K bath today. (3) Anemia: PLAN: S/p PRBC.
--- NOTE | 2022-07-24 16:13 | OP.EGD_ITS ---
Patient Name: Zeb Stevenson Procedure Date: 07/24/2022 3:35 PM Date of : 1955 Age: 67 Procedure: Upper GI endoscopy Indications: Melena Providers: Tamir Shanks DO Medicines: Monitored Anesthesia Care Patient Profile: This is a 67 year old male. Refer to note in patient chart for documentation of history and physical. Patient has symptoms of acute dyspepsia. Complications: No immediate complications. Procedure: Pre-Anesthesia Assessment: - Prior to the procedure, a History and Physical was performed, and patient medications and allergies were reviewed. The risks and benefits of the procedure and the sedation options and risks were discussed with the patient. All questions were answered and informed consent was obtained. Patient identification and proposed procedure were verified by the physician in the pre-procedure area. Mental Status Examination: alert and oriented. Airway Examination: normal oropharyngeal airway and neck mobility. Respiratory Examination: clear to auscultation. CV Examination: normal. Prophylactic Antibiotics: The patient does not require prophylactic antibiotics. Prior Anticoagulants: The patient has taken no previous anticoagulant or antiplatelet agents. ASA Grade Assessment: II - A patient with mild systemic disease. After reviewing the risks and benefits, the patient was deemed in satisfactory condition to undergo the procedure. The anesthesia plan was to use monitored anesthesia care (MAC). Immediately prior to administration of medications, the patient was re-assessed for adequacy to receive sedatives. The heart rate, respiratory rate, oxygen saturations, blood pressure, adequacy of pulmonary ventilation, and response to care were monitored throughout the procedure. The physical status of the patient was re-assessed after the procedure. After obtaining informed consent, the endoscope was passed under direct vision. Throughout the procedure, the patient's blood pressure, pulse, and oxygen saturations were monitored continuously. The Endoscope was introduced through the mouth, and advanced to the second part of duodenum. The upper GI endoscopy was accomplished without difficulty. The patient tolerated the procedure well. Scope In: 3:51:07 PM Scope Out: 4:00:23 PM Total Procedure Duration Time 0 hours 9 minutes 16 seconds Findings: There was some blood seen in the back of his mouth from an unknown origin. LA Grade B (one or more mucosal breaks greater than 5 mm, not extending between the tops of two mucosal folds) esophagitis with no bleeding was found 35 to 38 cm from the incisors. Biopsies were taken with a cold forceps for histology. Verification of patient identification for the specimen was done. Estimated blood loss was minimal. Three 5 mm bleeding angiodysplastic lesions were found in the cardia. Coagulation for hemostasis using bipolar probe was successful. Estimated blood loss was minimal. Evidence of a patent Billroth I gastroduodenostomy was found. A gastric pouch 1 cm wide with a normal size was found containing bile and ulceration. The gastroduodenal anastomosis was characterized by healthy appearing mucosa. This was traversed. No gross lesions were noted in the second portion of the duodenum. Impression: - Blood seen in the back of the mouth. - LA Grade B reflux esophagitis. Biopsied. - Three bleeding angiodysplastic lesions in the stomach. Treated with bipolar cautery. - Patent Billroth I gastroduodenostomy was found, characterized by healthy appearing mucosa. - No gross lesions in the second portion of the duodenum. Recommendation: - Discharge patient to home. - Resume previous diet. - Continue present medications. Procedure Code(s): --- Professional --- 06733, 59, Esophagogastroduodenoscopy, flexible, transoral; with control of bleeding, any method 45654, 51, Esophagogastroduodenoscopy, flexible, transoral; with biopsy, single or multiple CPT copyright 2017 [employer]. All rights reserved. The codes documented in this report are preliminary and upon pre coder review may be revised to meet current compliance requirements. Tamir Shanks DO 07/24/2022 4:12:37 PM This report has been signed electronically. Number of Addenda: 0 Note Initiated On: 07/24/2022 3:35 PM
--- NOTE | 2022-07-24 16:13 | OP.CCLET_ITS ---
07/24/2022 Shekhar Williamson Re : Upper GI endoscopy procedure for Zeb Rey Clay This procedure was performed on Sunday, July 24, 2022. My impressions and recommendations are as follows: Impressions : - Blood seen in the back of the mouth. - LA Grade B reflux esophagitis. Biopsied. - Three bleeding angiodysplastic lesions in the stomach. Treated with bipolar cautery. - Patent Billroth I gastroduodenostomy was found, characterized by healthy appearing mucosa. - No gross lesions in the second portion of the duodenum. Recommendations : - Discharge patient to home. - Resume previous diet. - Continue present medications. My findings are described in the full procedure note, which is enclosed. If I can be of further assistance, please feel free to contact me at . Sincerely, Tamir Friend, 07/24/2022 4:12:37 PM This report has been signed electronically.
[2022-07-25] VITALS (16 sets, daily range): BP systolic 88–105; BP diastolic 42–60; PULSE 59–67; RESP 16–20; TEMP 36.3–36.9; O2SAT 92–99
[2022-07-25] MEDS: Levothyroxine 150 MCG Tablet 300 MCG PO (05:53)
[2022-07-25 06:53] LABS: Absolute Lymphocyte Count 0.64 X10^3/uL (0.83-4.51); Absolute Neutrophil Count 5.2 X10^3/uL (2.0-7.7); Basophil# 0.02 X10^3/uL; Basophil% 0.3 % (0-1); Eosinophil# 0.09 X10^3/uL; Eosinophils% 1.4 % (0-5); Hematocrit 24.9 % (40-54); Hemoglobin 7.9 g/dL (13.0-16.5); Lymphocyte # 0.64 X10^3/ul (0.83-4.51); Lymphocyte % 9.8 % (19-41); Mean Corp Hgb Conc 31.7 g/dL (32-36); Mean Corpuscular Hgb 31.7 pg (27.0-32.0); Mean Platelet Vol. 10.5 fl (6.2-12.0); Monocyte% 7.7 % (0-10); NRBC Flagged by Analyzer 0.3 % (0-5); Neutrophil % 79.7 % (47-70); Platelet Count 197 K/mm3 (150-450); RBC Distribution Width CV 16.1 % (11.6-14.6); RBC Distribution Width SD 58.4 fl (35.1-43.9); Red Blood Count 2.49 M/mm3 (4.6-6.2); White Blood Count 6.5 K/mm3 (4.4-11.0)
[2022-07-25 07:02] LABS: International Normalized Ratio 1.7; Prothrombin Time (Protime)PT. 19.6 SECONDS (11.7-14.9)
[2022-07-25 07:26] LABS: Anion Gap 13 (5-15); BUN 126 mg/dL (7-18); BUN/Creat Ratio 9.2 RATIO (10-20); Calcium,Total 8.6 mg/dL (8.5-10.1); Chloride 99 mmol/L (98-107); EST Glomerular Filtration Rate 4 mL/min (>60); Est Glom Filt Rate - Afr Amer 5 mL/min (>60); Glucose 123 mg/dL (74-106); Potassium 6.9 mmol/L (3.5-5.1); Sodium Level 134 mmol/L (136-145)
[2022-07-25] MEDS: Midodrine HCl 5 MG Tablet 10 MG PO (07:54)
--- NOTE | 2022-07-25 08:01 | PN.HOSP_ITS ---
Subjective Subjective Underwent EGD the day prior results and recommendation as below - Blood seen in the back of the mouth.? ?- LA Grade B reflux esophagitis.? Biopsied. - Three bleeding angiodysplastic lesions in the stomach.? Treated with bipolar ?cautery. - Patent Billroth I gastroduodenostomy was found, characterized by healthy ?appearing mucosa. - No gross lesions in the second portion of the duodenum. . Patient hemoglobin 7.9 this AM. Potassium is 6.9 with BUN of 126 scheduled to undergo dialysis Objective Data Objective Data Vital Signs: Vital Signs Temp Pulse Resp BP Pulse Ox O2 Del Method O2 Flow Rate 98.0 F 66 16 105/60 94 Nasal Cannula 3 07/25/22 05:45 07/25/22 07:00 07/25/22 05:45 07/25/22 05:45 07/25/22 07:55 07/25/22 07:55 07/25/22 07:55 Oxygen Flow Rate (L/min) 3 Oxygen Delivery Method Nasal Cannula Weight: 113.7 kg Body Mass Index (BMI) 35.9 Intake & Output: Intake and Output for Last 24 Hours 07/23/22 07/24/22 07/25/22 23:59 23:59 23:59 Intake Total 986.5 / 986.5 586.83 / 586.83 100 / 100 Output Total 700 / 700 Balance 286.5 / 286.5 586.83 / 586.83 100 / 100 Lab / Micro Data Result Diagrams: 07/25/22 06:35 07/25/22 06:35 Labs: Laboratory Results - last 24 hr 07/25/22 06:35: Sodium 134 L, Potassium 6.9 H*, Chloride 99, Carbon Dioxide 22.0, Anion Gap 13, BUN 126 H*, Creatinine 13.70 H*, Estim Creat Clear Calc 5.40, Est GFR (MDRD) Af Amer 5 L, Est GFR (MDRD) Non-Af 4 L, BUN/Creatinine Ratio 9.2 L, Glucose 123 H, Calcium 8.6 07/25/22 06:35: WBC 6.5, RBC 2.49 L, Hgb 7.9 L, Hct 24.9 L, MCV 100.0 H, MCH 31.7, MCHC 31.7 L, RDW Std Deviation 58.4 H, RDW Coeff of Dominique 16.1 H, Plt Count 197, MPV 10.5, Immature Gran % (Auto) 1.100 H, Neut % (Auto) 79.7 H, Lymph % (Auto) 9.8 L, [place] % (Auto) 7.7, Eos % (Auto) 1.4, Baso % (Auto) 0.3, Absolute Neuts (auto) 5.2, Absolute Lymphs (auto) 0.64 L, Nucleated RBC % 0.3 07/25/22 06:35: PT 19.6 H, INR 1.7 Micro: Microbiology 07/23/22 10:50 Stool Stool Occult Blood (FILI) - Final Occult Blood Positive 07/23/22 10:10 Nasal Secretion SARS-CoV-2 & FLU Antigen (Rapid) - Final Physical Exam Narrative GENERAL: cooperative HEENT: Atraumatic; normocephalic EYES; Anicteric, Normal Conjunctiva NECK; supple, normal thyroid, RESPIRATORY: Diminished to auscultation CARDIOVASCULAR: Regular S1 S2, systolic click GI: soft, normoactive bowel sounds, : No Renal angle tenderness; EXTREMITIES: No edema, no clubbing, MUSCULOSKELETAL: no muscle wasting NEURO: Awake; no lateralizing signs. SKIN: Bruises upper extremity PSYCH; Flat affect Assessment & Plan Assessment/Plan (1) Anemia: PLAN: Plan Patient is a 67-year-old gentleman with history of end-stage renal disease, mitral valve replacement with mechanical valve, paroxysmal A. fib flutter on systemic anticoagulation presented with progressive generalized weakness found to be anemic with hemoglobin of 6.7 and hyperkalemic with potassium of 6.4 admitted to monitored bed 1. Anemia ? Secondary to acute on chronic blood loss from the GI tract. Patient did experience melenic stools. Most the patient is on systemic anticoagulation with warfarin. Patient started on Protonix drip type and screen H&H ordered every 4 and consultation placed to GI -07/24/2022; patient was transfused with 2 unit PRBC patient was seen in consultation by GI plan for patient to undergo EGD this morning. Case discussed with Dr. Shanks. We will continue with monitoring with daily H&H -07/25/2022; Underwent EGD the day prior results and recommendation as below - Blood seen in the back of the mouth.? ?- LA Grade B reflux esophagitis.? Biopsied. - Three bleeding angiodysplastic lesions in the stomach.? Treated with bipolar ?cautery. - Patent Billroth I gastroduodenostomy was found, characterized by healthy ?appearing mucosa. - No gross lesions in the second portion of the duodenum. -Patient started on PPI. Subsequent monitoring with daily H&H ordered 2. Hyperkalemia ? Secondary to patient end-stage renal disease treatment initiated in the ED subsequent serial BMPs ordered consultation placed to nephrology ? 07/24/2022 patient potassium remains elevated at 5.8 was seen by nephrology. Plan is for patient to undergo dialysis with 2K bath repeat labs ordered for a.m. -07/25/2022 Potassium is 6.9 with BUN of 126 scheduled to undergo dialysis. Repeat labs ordered in a.m. for monitoring 3. End-stage renal disease ? On hemodialysis on Wednesdays and Fridays consult placed to nephrology for dialysis orders ? 07/24/2022 seen in consultation by nephrology 4. Valvular heart disease with mechanical valve replacement of the mitral valve ? Patient is on systemic anticoagulation with warfarin INR is therapeutic. Daily INR ordered for monitoring target 2.5-3.5 ? 07/24/2022 plan is to resume patient Coumadin as soon as possible given the presence of a mechanical heart valve ? 07/25/2022 INR 1.7. Coumadin resumed. Patient also started on heparin given his mechanical valve plan is to continue till INR becomes therapeutic 5. Paroxysmal A. fib flutter ? Rate controlled on systemic anticoagulation with warfarin ? 07/24/2022 patient Coumadin was held, plan is to resume following his EGD 6. Monoclonal gammopathy of unknown significance ? Currently stable 7. Hypothyroidism - Patient is on levothyroxine home dose continued 8. Gout ? Patient is on allopurinol did continue 9. DVT prophylaxis ? Patient is systemic anticoagulation with Coumadin Charges/Coding Visit Charges Inpatient E&M: 86146 Subs Hosp L3
[2022-07-25] MEDS: HEPARIN/D5w 25,000 UNITS 25,000 UNITS/250 ML IV.SOLN. 15 UNITS CONT INF (08:54)
[2022-07-25] MEDS: Heparin Injection (Vial) 5,000 UNIT/ML VIAL 8000 UNIT IV (08:58)
[2022-07-25] MEDS: 0.9% Saline Lock 10 ML Syringe IV (09:00)
--- NOTE | 2022-07-25 10:36 | NURSING ---
Report given to Trinity NORIEGA who is taking over care of pt at this time.
[2022-07-25] MEDS: Allopurinol 100 MG Tablet PO (14:04)
[2022-07-25] MEDS: Folic Acid/Vitamin B Comp W-C 1 Capsule 1 CAP PO (14:04)
[2022-07-25] MEDS: Ferrous Sulfate 325 MG Tablet PO (14:04)
[2022-07-25] MEDS: SEVELAMER CARBONATE 800 MG TABLET PO (14:05)
[2022-07-25] MEDS: Sertraline 50 MG Tablet PO (14:05)
--- NOTE | 2022-07-25 14:09 | DIALYSIS ---
Hemodialysis x4 hours completed at 1315 on a 1K/2K bath, tolerated well, UF 2500mL, pre BP 104/48, received midodrine pre-tx, post BP 99/54, accessed via RFA AVF using 15G needles, worked well, needles pulled post tx and stasis achieved without issue... while sitting on side of bed feeling lightheaded, patient helped to lay down with HOB down, BP 84/39, reports feeling better in bed, balance staff staker notified, nephrology notified, 500mL bolus ordered
[2022-07-25 15:12] LABS: Partial Thromboplast Time 178.1 Seconds (24.1-36.2)
--- NOTE | 2022-07-25 18:49 | PCM.PROGNOTE ---
Subjective Subjective Patient underwent a upper endoscopy yesterday for acute GI bleeding in the setting of anticoagulation. He has not seen any signs of blood loss today. He is tolerating diet. Objective Data Objective Data Vital Signs: Vital Signs Temp Pulse Resp BP Pulse Ox O2 Del Method O2 Flow Rate 97.3 F L 62 20 H 96/58 L 95 Nasal Cannula 3 07/25/22 18:00 07/25/22 18:00 07/25/22 18:00 07/25/22 18:00 07/25/22 18:00 07/25/22 18:00 07/25/22 18:00 Oxygen Flow Rate (L/min) 3 Oxygen Delivery Method Nasal Cannula Weight: 250 lb 10.649 oz Body Mass Index (BMI) 35.9 Intake & Output: Intake and Output for Last 24 Hours 07/23/22 07/24/22 07/25/22 23:59 23:59 23:59 Intake Total 986.5 / 986.5 586.83 / 586.83 799.00 / 799.00 Output Total 700 / 700 2500 / 2500 Balance 286.5 / 286.5 586.83 / 586.83 -1701.00 / -1701.00 Lab / Micro Data Result Diagrams: 07/25/22 06:35 07/25/22 06:35 Labs: Laboratory Results - last 24 hr 07/25/22 06:35: Sodium 134 L, Potassium 6.9 H*, Chloride 99, Carbon Dioxide 22.0, Anion Gap 13, BUN 126 H*, Creatinine 13.70 H*, Estim Creat Clear Calc 5.40, Est GFR (MDRD) Af Amer 5 L, Est GFR (MDRD) Non-Af 4 L, BUN/Creatinine Ratio 9.2 L, Glucose 123 H, Calcium 8.6 07/25/22 06:35: WBC 6.5, RBC 2.49 L, Hgb 7.9 L, Hct 24.9 L, MCV 100.0 H, MCH 31.7, MCHC 31.7 L, RDW Std Deviation 58.4 H, RDW Coeff of Dominique 16.1 H, Plt Count 197, MPV 10.5, Immature Gran % (Auto) 1.100 H, Neut % (Auto) 79.7 H, Lymph % (Auto) 9.8 L, [place] % (Auto) 7.7, Eos % (Auto) 1.4, Baso % (Auto) 0.3, Absolute Neuts (auto) 5.2, Absolute Lymphs (auto) 0.64 L, Nucleated RBC % 0.3 07/25/22 06:35: PT 19.6 H, INR 1.7 07/25/22 14:29: APTT 178.1 H* Micro: Microbiology 07/23/22 10:50 Stool Stool Occult Blood (FILI) - Final Occult Blood Positive 07/23/22 10:10 Nasal Secretion SARS-CoV-2 & FLU Antigen (Rapid) - Final Physical Exam Narrative GENERAL: cooperative HEENT: Atraumatic; normocephalic EYES; Anicteric, Normal Conjunctiva NECK; supple, normal thyroid, RESPIRATORY: Diminished to auscultation CARDIOVASCULAR: Regular S1 S2, systolic click GI: soft, normoactive bowel sounds, : No Renal angle tenderness; EXTREMITIES: No edema, no clubbing, MUSCULOSKELETAL: no muscle wasting NEURO: Awake; no lateralizing signs. SKIN: Bruises upper extremity PSYCH; Flat affect Assessment & Plan Assessment/Plan (1) GI (gastrointestinal bleed): PLAN: He was identified as having angiodysplasias as a cause of his bleeding and acute blood loss anemia. There were treated endoscopically. He was also discovered to have a previous Billroth I procedure which is a vagotomy, pyloroplasty and duodenectomy. I assume this was because of previous peptic ulcer disease. When you perform a vagotomy and pyeloplasty you at risk for peptic ulcer disease due to the fact that you decrease the amount of bicarbonate and it keeps the pH more acidic in the stomach. Also he has no pyloric sphincter which stops of bile acids from coming back into the stomach which makes the mucosa more denuded and susceptible to bleeding. Recommend continuous PPI therapy with 40 mg PPI twice a day in the form of Protonix. Also recommend sulcal fate 2-3 times a day. Charges/Coding Visit Charges Inpatient E&M: 31341 Subs Hosp L2
[2022-07-25] MEDS: Menthol/Lanolin/Calamine/Znox 113 GM Tube 1 APPLIC TOPICAL (20:11)
[2022-07-26] VITALS (11 sets, daily range): BP systolic 93–113; BP diastolic 34–58; PULSE 60–71; RESP 16–18; TEMP 36.4–36.8; O2SAT 95–98
[2022-07-26] MEDS: Levothyroxine 150 MCG Tablet 300 MCG PO (05:39)
[2022-07-26] MEDS: HEPARIN/D5w 25,000 UNITS 25,000 UNITS/250 ML IV.SOLN. 13 UNITS CONT INF (05:39)
[2022-07-26 06:01] LABS: Absolute Lymphocyte Count 0.74 X10^3/uL (0.83-4.51); Absolute Neutrophil Count 4.3 X10^3/uL (2.0-7.7); Basophil# 0.03 X10^3/uL; Basophil% 0.5 % (0-1); Eosinophil# 0.07 X10^3/uL; Eosinophils% 1.2 % (0-5); Hematocrit 24.2 % (40-54); Hemoglobin 7.7 g/dL (13.0-16.5); Lymphocyte # 0.74 X10^3/ul (0.83-4.51); Lymphocyte % 12.9 % (19-41); Mean Corp Hgb Conc 31.8 g/dL (32-36); Mean Corpuscular Hgb 31.8 pg (27.0-32.0); Mean Platelet Vol. 10.9 fl (6.2-12.0); Monocyte# 0.53 X10^3/uL; Monocyte% 9.2 % (0-10); NRBC Flagged by Analyzer 0 % (0-5); Neutrophil # 4.33 X10^3/uL (2.7-7.7); Neutrophil % 75.5 % (47-70); Platelet Count 191 K/mm3 (150-450); RBC Distribution Width CV 16.3 % (11.6-14.6); RBC Distribution Width SD 58.4 fl (35.1-43.9); Red Blood Count 2.42 M/mm3 (4.6-6.2); White Blood Count 5.7 K/mm3 (4.4-11.0)
[2022-07-26 06:28] LABS: International Normalized Ratio 1.4; Prothrombin Time (Protime)PT. 16.7 SECONDS (11.7-14.9)
[2022-07-26 06:57] LABS: Anion Gap 11 (5-15); BUN 87 mg/dL (7-18); BUN/Creat Ratio 7.8 RATIO (10-20); Calcium,Total 8.6 mg/dL (8.5-10.1); Chloride 100 mmol/L (98-107); EST Glomerular Filtration Rate 5 mL/min (>60); Est Glom Filt Rate - Afr Amer 6 mL/min (>60); Estimated Creatinine Clearance 6.67 ml/min; Glucose 148 mg/dL (74-106); Potassium 5.4 mmol/L (3.5-5.1); Sodium Level 135 mmol/L (136-145)
[2022-07-26 07:07] LABS: Partial Thromboplast Time 43.2 Seconds (24.1-36.2)
--- NOTE | 2022-07-26 08:12 | PN.HOSP_ITS ---
Subjective Subjective Patient seen hemoglobin remains fairly stable. INR still 1.4. Patient was started on heparin drip whilst waiting for INR to become therapeutic. Objective Data Objective Data Vital Signs: Vital Signs Temp Pulse Resp BP Pulse Ox O2 Del Method O2 Flow Rate 97.6 F L 63 18 99/58 L 97 Nasal Cannula 3 07/26/22 05:30 07/26/22 05:30 07/26/22 05:30 07/26/22 05:30 07/26/22 05:30 07/26/22 05:30 07/26/22 05:30 Oxygen Flow Rate (L/min) 3 Oxygen Delivery Method Nasal Cannula Weight: 113.7 kg Body Mass Index (BMI) 35.9 Intake & Output: Intake and Output for Last 24 Hours 07/24/22 07/25/22 07/26/22 23:59 23:59 23:59 Intake Total 586.83 / 586.83 799.00 / 799.00 237.16 / 237.16 Output Total 2500 / 2500 Balance 586.83 / 586.83 -1701.00 / -1701.00 237.16 / 237.16 Lab / Micro Data Result Diagrams: 07/26/22 05:41 07/26/22 05:41 Labs: Laboratory Results - last 24 hr 07/25/22 14:29: APTT 178.1 H* 07/26/22 01:00: APTT 43.2 H 07/26/22 05:41: Sodium 135 L, Potassium 5.4 H, Chloride 100, Carbon Dioxide 24.0, Anion Gap 11, BUN 87 H, Creatinine 11.10 H*, Estim Creat Clear Calc 6.67, Est GFR (MDRD) Af Amer 6 L, Est GFR (MDRD) Non-Af 5 L, BUN/Creatinine Ratio 7.8 L, Glucose 148 H, Calcium 8.6 07/26/22 05:41: WBC 5.7, RBC 2.42 L, Hgb 7.7 L, Hct 24.2 L, MCV 100.0 H, MCH 31.8, MCHC 31.8 L, RDW Std Deviation 58.4 H, RDW Coeff of Dominique 16.3 H, Plt Count 191, MPV 10.9, Immature Gran % (Auto) 0.700, Neut % (Auto) 75.5 H, Lymph % (Auto) 12.9 L, [place] % (Auto) 9.2, Eos % (Auto) 1.2, Baso % (Auto) 0.5, Absolute Neuts (auto) 4.3, Absolute Lymphs (auto) 0.74 L, Nucleated RBC % 0 07/26/22 05:41: PT 16.7 H, INR 1.4 Micro: Microbiology 07/23/22 10:50 Stool Stool Occult Blood (FILI) - Final Occult Blood Positive 07/23/22 10:10 Nasal Secretion SARS-CoV-2 & FLU Antigen (Rapid) - Final Physical Exam Narrative GENERAL: cooperative HEENT: Atraumatic; normocephalic EYES; Anicteric, Normal Conjunctiva NECK; supple, normal thyroid, RESPIRATORY: Diminished to auscultation CARDIOVASCULAR: Regular S1 S2, systolic click GI: soft, normoactive bowel sounds, : No Renal angle tenderness; EXTREMITIES: No edema, no clubbing, MUSCULOSKELETAL: no muscle wasting NEURO: Awake; no lateralizing signs. SKIN: Bruises upper extremity PSYCH; Flat affect Assessment & Plan Assessment/Plan (1) Anemia: PLAN: Plan Patient is a 67-year-old gentleman with history of end-stage renal disease, mitral valve replacement with mechanical valve, paroxysmal A. fib flutter on systemic anticoagulation presented with progressive generalized weakness found to be anemic with hemoglobin of 6.7 and hyperkalemic with potassium of 6.4 admitted to monitored bed 1. Anemia ? Secondary to acute on chronic blood loss from the GI tract. Patient did experience melenic stools. Most the patient is on systemic anticoagulation with warfarin. Patient started on Protonix drip type and screen H&H ordered every 4 and consultation placed to GI -07/24/2022; patient was transfused with 2 unit PRBC patient was seen in consultation by GI plan for patient to undergo EGD this morning. Case discussed with Dr. Shanks. We will continue with monitoring with daily H&H -07/25/2022; Underwent EGD the day prior results and recommendation as below - Blood seen in the back of the mouth.? ?- LA Grade B reflux esophagitis.? Biopsied. - Three bleeding angiodysplastic lesions in the stomach.? Treated with bipolar ?cautery. - Patent Billroth I gastroduodenostomy was found, characterized by healthy ?appearing mucosa. - No gross lesions in the second portion of the duodenum. -Patient started on PPI. Subsequent monitoring with daily H&H ordered ? 07/26/2022; hemoglobin fairly stable at 7.7 2. Hyperkalemia ? Secondary to patient end-stage renal disease treatment initiated in the ED subsequent serial BMPs ordered consultation placed to nephrology ? 07/24/2022 patient potassium remains elevated at 5.8 was seen by nephrology. Plan is for patient to undergo dialysis with 2K bath repeat labs ordered for a.m. -07/25/2022 Potassium is 6.9 with BUN of 126 scheduled to undergo dialysis. Repeat labs ordered in a.m. for monitoring ? 07/26/2022; potassium down to 5.4 3. End-stage renal disease ? On hemodialysis on Wednesdays and Fridays consult placed to nephrology for dialysis orders ? 07/24/2022 seen in consultation by nephrology 4. Valvular heart disease with mechanical valve replacement of the mitral valve ? Patient is on systemic anticoagulation with warfarin INR is therapeutic. Daily INR ordered for monitoring target 2.5-3.5 ? 07/24/2022 plan is to resume patient Coumadin as soon as possible given the presence of a mechanical heart valve ? 07/25/2022 INR 1.7. Coumadin resumed. Patient also started on heparin given his mechanical valve plan is to continue till INR becomes therapeutic ? 07/26/2022; INR further down at 1.4 patient is on heparin whilst waiting for INR to become therapeutic (2.5-3.5) 5. Paroxysmal A. fib flutter ? Rate controlled on systemic anticoagulation with warfarin ? 07/24/2022 patient Coumadin was held, plan is to resume following his EGD 6. Monoclonal gammopathy of unknown significance ? Currently stable 7. Hypothyroidism - Patient is on levothyroxine home dose continued 8. Gout ? Patient is on allopurinol did continue 9. DVT prophylaxis ? Patient is systemic anticoagulation with Coumadin Charges/Coding Visit Charges Inpatient E&M: 17807 Subs Hosp L2
[2022-07-26 08:54] LABS: Partial Thromboplast Time 52.8 Seconds (24.1-36.2)
[2022-07-26] MEDS: Menthol/Lanolin/Calamine/Znox 113 GM Tube 1 APPLIC TOPICAL ×2 (09:44→21:53)
[2022-07-26] MEDS: Allopurinol 100 MG Tablet PO (09:45)
[2022-07-26] MEDS: Ferrous Sulfate 325 MG Tablet PO (09:45)
[2022-07-26] MEDS: SEVELAMER CARBONATE 800 MG TABLET PO (09:45)
[2022-07-26] MEDS: Folic Acid/Vitamin B Comp W-C 1 Capsule 1 CAP PO (09:45)
[2022-07-26] MEDS: Sertraline 50 MG Tablet PO (09:45)
--- NOTE | 2022-07-26 09:49 | PCM.PN.REN ---
Subjective Subjective Resting quietly. Denies any complaints. Objective Data Objective Data Vital Signs: Vital Signs Temp Pulse Resp BP Pulse Ox O2 Del Method O2 Flow Rate 97.8 F 60 18 105/34 L 95 Nasal Cannula 3 07/26/22 09:37 07/26/22 09:37 07/26/22 09:37 07/26/22 09:37 07/26/22 09:37 07/26/22 09:37 07/26/22 09:37 Oxygen Flow Rate (L/min) 3 Oxygen Delivery Method Nasal Cannula Weight: 113.7 kg Body Mass Index (BMI) 35.9 Intake & Output: Intake and Output for Last 24 Hours 07/24/22 07/25/22 07/26/22 23:59 23:59 23:59 Intake Total 586.83 / 586.83 799.00 / 799.00 237.16 / 237.16 Output Total 2500 / 2500 Balance 586.83 / 586.83 -1701.00 / -1701.00 237.16 / 237.16 Lab / Micro Data Result Diagrams: 07/26/22 05:41 07/26/22 05:41 Labs: Laboratory Results - last 24 hr 07/25/22 14:29: APTT 178.1 H* 07/26/22 01:00: APTT 43.2 H 07/26/22 05:41: Sodium 135 L, Potassium 5.4 H, Chloride 100, Carbon Dioxide 24.0, Anion Gap 11, BUN 87 H, Creatinine 11.10 H*, Estim Creat Clear Calc 6.67, Est GFR (MDRD) Af Amer 6 L, Est GFR (MDRD) Non-Af 5 L, BUN/Creatinine Ratio 7.8 L, Glucose 148 H, Calcium 8.6 07/26/22 05:41: WBC 5.7, RBC 2.42 L, Hgb 7.7 L, Hct 24.2 L, MCV 100.0 H, MCH 31.8, MCHC 31.8 L, RDW Std Deviation 58.4 H, RDW Coeff of Dominique 16.3 H, Plt Count 191, MPV 10.9, Immature Gran % (Auto) 0.700, Neut % (Auto) 75.5 H, Lymph % (Auto) 12.9 L, [place] % (Auto) 9.2, Eos % (Auto) 1.2, Baso % (Auto) 0.5, Absolute Neuts (auto) 4.3, Absolute Lymphs (auto) 0.74 L, Nucleated RBC % 0 07/26/22 05:41: PT 16.7 H, INR 1.4 07/26/22 08:32: APTT 52.8 H Micro: Microbiology 07/23/22 10:50 Stool Stool Occult Blood (FILI) - Final Occult Blood Positive 07/23/22 10:10 Nasal Secretion SARS-CoV-2 & FLU Antigen (Rapid) - Final Physical Exam Narrative Alert awake oriented x 3 no obvious distress s1s2 no murmurs lungs clear, no wheezes, rhonchi or rales abdomen soft, nontender no edema AV fistula right forearm positive thrill and bruit Assessment & Plan Assessment/Plan (1) ESRD on hemodialysis: PLAN: ESRD on dialysis Saturday, Saturday, Saturday schedule. Patient dialyzed Saturday this week. 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 Next dialysis tomorrow on 2K bath with UF as patient/blood pressure tolerates. Blood pressures have been low. Patient receives midodrine 10 mg at start of each dialysis Saturday. We will start midodrine 5 mg twice daily. (2) Acute hyperkalemia: PLAN: Dialysis on 2K bath tomorrow. Continue Renal diet. Reviewed with patient foods high in potassium to avoid (3) Anemia: PLAN: EGD showed esophagitis, bleeding lesions in stomach treated with cautery. S/p PRBC. On PPI gtt. hemoglobin 7.7 today. GEGE with HD tomorrow. on heparin gtt and coumadin. INR 1.4 today
[2022-07-26] MEDS: Heparin Injection (Vial) 5,000 UNIT/ML VIAL IV (10:14)
[2022-07-26] MEDS: Midodrine HCl 5 MG Tablet PO ×2 (10:25→21:53)
--- NOTE | 2022-07-26 15:19 | CASEMGMT ---
Patient has a Healthcare Power of Mortgage Loan Interviewer (HCPOA) and Healthcare Living Will (HCLW). Patient was made aware that documents are not on file at [facility] and to bring in a copy when able. Patient's Betsy is his HCPOA. Silvana Goodman PROJECT ADMINISTRATOR [employer]
[2022-07-26 16:56] LABS: Partial Thromboplast Time 61.6 Seconds (24.1-36.2)
[2022-07-26 22:24] LABS: Partial Thromboplast Time 51.1 Seconds (24.1-36.2)
[2022-07-26] MEDS: HEPARIN/D5w 25,000 UNITS 25,000 UNITS/250 ML IV.SOLN. 15 UNITS CONT INF (23:58)
[2022-07-27] VITALS (12 sets, daily range): BP systolic 88–156; BP diastolic 52–98; PULSE 60–93; RESP 18–20; TEMP 36.4–36.7; O2SAT 94–99
[2022-07-27 04:37] LABS: Absolute Lymphocyte Count 0.84 X10^3/uL (0.83-4.51); Absolute Neutrophil Count 5.4 X10^3/uL (2.0-7.7); Basophil# 0.04 X10^3/uL; Basophil% 0.6 % (0-1); Eosinophil# 0.12 X10^3/uL; Eosinophils% 1.7 % (0-5); Hematocrit 22.3 % (40-54); Lymphocyte # 0.84 X10^3/ul (0.83-4.51); Lymphocyte % 12.1 % (19-41); Mean Corp Hgb Conc 31.4 g/dL (32-36); Mean Corpuscular Hgb 31.3 pg (27.0-32.0); Mean Corpuscular Volume 99.6 fL (80-94); Mean Platelet Vol. 10.4 fl (6.2-12.0); Monocyte# 0.53 X10^3/uL; Monocyte% 7.7 % (0-10); NRBC Flagged by Analyzer 0 % (0-5); Neutrophil # 5.35 X10^3/uL (2.7-7.7); Neutrophil % 77.3 % (47-70); Platelet Count 180 K/mm3 (150-450); RBC Distribution Width CV 16.3 % (11.6-14.6); RBC Distribution Width SD 58.7 fl (35.1-43.9); Red Blood Count 2.24 M/mm3 (4.6-6.2); White Blood Count 6.9 K/mm3 (4.4-11.0)
[2022-07-27 04:46] LABS: International Normalized Ratio 1.5; Prothrombin Time (Protime)PT. 18.1 SECONDS (11.7-14.9)
[2022-07-27 04:47] LABS: Partial Thromboplast Time 53.7 Seconds (24.1-36.2)
[2022-07-27] MEDS: Levothyroxine 150 MCG Tablet 300 MCG PO (05:17)
[2022-07-27 05:24] LABS: Albumin, Serum 2.9 g/dL (3.2-5.0); Anion Gap 12 (5-15); BUN 108 mg/dL (7-18); BUN/Creat Ratio 8.4 RATIO (10-20); Calcium,Total 8.5 mg/dL (8.5-10.1); Chloride 99 mmol/L (98-107); EST Glomerular Filtration Rate 4 mL/min (>60); Est Glom Filt Rate - Afr Amer 5 mL/min (>60); Estimated Creatinine Clearance 5.78 ml/min; Glucose 118 mg/dL (74-106); Magnesium 2.3 mg/dL (1.6-2.6); Phosphorus 9.2 mg/dL (2.5-4.9); Potassium 6.3 mmol/L (3.5-5.1); Sodium Level 133 mmol/L (136-145)
--- NOTE | 2022-07-27 07:58 | PN.HOSP_ITS ---
Subjective Subjective Patient seen currently undergoing dialysis hemoglobin down to 7.0. INR remains subtherapeutic 1.5 Objective Data Objective Data Vital Signs: Vital Signs Temp Pulse Resp BP Pulse Ox O2 Del Method O2 Flow Rate 98.0 F 61 18 105/52 L 94 Nasal Cannula 3 07/27/22 02:43 07/27/22 06:50 07/27/22 02:43 07/27/22 02:43 07/27/22 07:10 07/27/22 07:10 07/27/22 07:10 Oxygen Flow Rate (L/min) 3 Oxygen Delivery Method Nasal Cannula Weight: 113.7 kg Body Mass Index (BMI) 35.9 Intake & Output: Intake and Output for Last 24 Hours 07/25/22 07/26/22 07/27/22 23:59 23:59 23:59 Intake Total 799.00 / 799.00 1517.83 / 1517.83 171.17 / 171.17 Output Total 2500 / 2500 Balance -1701.00 / -1701.00 1517.83 / 1517.83 171.17 / 171.17 Lab / Micro Data Result Diagrams: 07/27/22 04:30 07/27/22 04:30 Labs: Laboratory Results - last 24 hr 07/26/22 08:32: APTT 52.8 H 07/26/22 16:23: APTT 61.6 H 07/26/22 22:02: APTT 51.1 H 07/27/22 04:30: WBC 6.9, RBC 2.24 L, Hgb 7.0 L, Hct 22.3 L, MCV 99.6 H, MCH 31.3, MCHC 31.4 L, RDW Std Deviation 58.7 H, RDW Coeff of Dominique 16.3 H, Plt Count 180, MPV 10.4, Immature Gran % (Auto) 0.600, Neut % (Auto) 77.3 H, Lymph % (Auto) 12.1 L, [place] % (Auto) 7.7, Eos % (Auto) 1.7, Baso % (Auto) 0.6, Absolute Neuts (auto) 5.4, Absolute Lymphs (auto) 0.84, Nucleated RBC % 0 07/27/22 04:30: Sodium 133 L, Potassium 6.3 H*, Chloride 99, Carbon Dioxide 22.0, Anion Gap 12, BUN 108 H*, Creatinine 12.80 H*, Estim Creat Clear Calc 5.78, Est GFR (MDRD) Af Amer 5 L, Est GFR (MDRD) Non-Af 4 L, BUN/Creatinine Ratio 8.4 L, Glucose 118 H, Calcium 8.5, Phosphorus 9.2 H*, Magnesium 2.3, Albumin 2.9 L 07/27/22 04:30: PT 18.1 H, INR 1.5, APTT 53.7 H 07/27/22 04:30: APTT Cancelled Micro: Microbiology 07/23/22 10:50 Stool Stool Occult Blood (FILI) - Final Occult Blood Positive 07/23/22 10:10 Nasal Secretion SARS-CoV-2 & FLU Antigen (Rapid) - Final Physical Exam Narrative GENERAL: cooperative HEENT: Atraumatic; normocephalic EYES; Anicteric, Normal Conjunctiva NECK; supple, normal thyroid, RESPIRATORY: Diminished to auscultation CARDIOVASCULAR: Regular S1 S2, systolic click GI: soft, normoactive bowel sounds, : No Renal angle tenderness; EXTREMITIES: No edema, no clubbing, MUSCULOSKELETAL: no muscle wasting NEURO: Awake; no lateralizing signs. SKIN: Bruises upper extremity PSYCH; Flat affect Assessment & Plan Assessment/Plan (1) Anemia: PLAN: Plan Patient is a 67-year-old gentleman with history of end-stage renal disease, mitral valve replacement with mechanical valve, paroxysmal A. fib flutter on systemic anticoagulation presented with progressive generalized weakness found to be anemic with hemoglobin of 6.7 and hyperkalemic with potassium of 6.4 admitted to monitored bed 1. Anemia ? Secondary to acute on chronic blood loss from the GI tract. Patient did experience melenic stools. Most the patient is on systemic anticoagulation with warfarin. Patient started on Protonix drip type and screen H&H ordered every 4 and consultation placed to GI -07/24/2022; patient was transfused with 2 unit PRBC patient was seen in consultation by GI plan for patient to undergo EGD this morning. Case discussed with Dr. Shanks. We will continue with monitoring with daily H&H -07/25/2022; Underwent EGD the day prior results and recommendation as below - Blood seen in the back of the mouth.? ?- LA Grade B reflux esophagitis.? Biopsied. - Three bleeding angiodysplastic lesions in the stomach.? Treated with bipolar ?cautery. - Patent Billroth I gastroduodenostomy was found, characterized by healthy ?appearing mucosa. - No gross lesions in the second portion of the duodenum. -Patient started on PPI. Subsequent monitoring with daily H&H ordered ? 07/26/2022; hemoglobin fairly stable at 7.7 ? 07/27/2022 hemoglobin down to 7.0 2. Hyperkalemia ? Secondary to patient end-stage renal disease treatment initiated in the ED [facility] bsequent serial BMPs ordered consultation placed to nephrology ? 07/24/2022 patient potassium remains elevated at 5.8 was seen by nephrology. Plan is for patient to undergo dialysis with 2K bath repeat labs ordered for a.m. -07/25/2022 Potassium is 6.9 with BUN of 126 scheduled to undergo dialysis. Repeat labs ordered in a.m. for monitoring ? 07/26/2022; potassium down to 5.4 07/27/2022 potassium 6.3 but patient is scheduled to undergo dialysis 3. End-stage renal disease ? On hemodialysis on Wednesdays and Fridays consult placed to nephrology for dialysis orders ? 07/24/2022 seen in consultation by nephrology 4. Valvular heart disease with mechanical valve replacement of the mitral valve ? Patient is on systemic anticoagulation with warfarin INR is therapeutic. Daily INR ordered for monitoring target 2.5-3.5 ? 07/24/2022 plan is to resume patient Coumadin as soon as possible given the presence of a mechanical heart valve ? 07/25/2022 INR 1.7. Coumadin resumed. Patient also started on heparin given his mechanical valve plan is to continue till INR becomes therapeutic ? 07/26/2022; INR further down at 1.4 patient is on heparin whilst waiting for INR to become therapeutic (2.5-3.5) ? 07/27/2022 INR up to 1.5 5. Paroxysmal A. fib flutter ? Rate controlled on systemic anticoagulation with warfarin ? 07/24/2022 patient Coumadin was held, plan is to resume following his EGD 6. Monoclonal gammopathy of unknown significance ? Currently stable 7. Hypothyroidism - Patient is on levothyroxine home dose continued 8. Gout ? Patient is on allopurinol did continue 9. DVT prophylaxis ? Patient is systemic anticoagulation with Coumadin Charges/Coding Visit Charges Inpatient E&M: 96813 Subs Hosp L2
[2022-07-27] MEDS: Allopurinol 100 MG Tablet PO (09:18)
[2022-07-27] MEDS: Folic Acid/Vitamin B Comp W-C 1 Capsule 1 CAP PO (09:18)
[2022-07-27] MEDS: Ferrous Sulfate 325 MG Tablet PO (09:18)
[2022-07-27] MEDS: Midodrine HCl 5 MG Tablet 10 MG PO (09:18)
[2022-07-27] MEDS: SEVELAMER CARBONATE 800 MG TABLET PO (09:19)
[2022-07-27] MEDS: Sertraline 50 MG Tablet PO (09:19)
[2022-07-27] MEDS: Menthol/Lanolin/Calamine/Znox 113 GM Tube 1 APPLIC TOPICAL ×2 (09:21→21:57)
--- NOTE | 2022-07-27 11:31 | CASEMGMT ---
Per Dr. Ramirez, pt will not be discharged until INR is therapeutic. Pt has been independent in room and states no further needs for d/c. Green sheet left on chart for increased home oxygen need. Erik NORIEGA CM
--- NOTE | 2022-07-27 11:46 | PN.RENAL_ITS ---
Subjective Subjective No new complaint Objective Data Objective Data Vital Signs: Vital Signs Temp Pulse Resp BP Pulse Ox O2 Del Method O2 Flow Rate 97.7 F L 68 18 88/57 L 94 Nasal Cannula 3 07/27/22 09:24 07/27/22 09:24 07/27/22 09:24 07/27/22 09:24 07/27/22 09:24 07/27/22 09:24 07/27/22 09:24 Oxygen Flow Rate (L/min) 3 Oxygen Delivery Method Nasal Cannula Weight: 113.7 kg Body Mass Index (BMI) 35.9 Intake & Output: Intake and Output for Last 24 Hours 07/25/22 07/26/22 07/27/22 23:59 23:59 23:59 Intake Total 799.00 / 799.00 1517.83 / 1517.83 171.17 / 171.17 Output Total 2500 / 2500 Balance -1701.00 / -1701.00 1517.83 / 1517.83 171.17 / 171.17 Lab / Micro Data Result Diagrams: 07/27/22 04:30 07/27/22 04:30 Labs: Laboratory Results - last 24 hr 07/26/22 16:23: APTT 61.6 H 07/26/22 22:02: APTT 51.1 H 07/27/22 04:30: WBC 6.9, RBC 2.24 L, Hgb 7.0 L, Hct 22.3 L, MCV 99.6 H, MCH 31.3, MCHC 31.4 L, RDW Std Deviation 58.7 H, RDW Coeff of Dominique 16.3 H, Plt Count 180, MPV 10.4, Immature Gran % (Auto) 0.600, Neut % (Auto) 77.3 H, Lymph % (Auto) 12.1 L, [place] % (Auto) 7.7, Eos % (Auto) 1.7, Baso % (Auto) 0.6, Absolute Neuts (auto) 5.4, Absolute Lymphs (auto) 0.84, Nucleated RBC % 0 07/27/22 04:30: Sodium 133 L, Potassium 6.3 H*, Chloride 99, Carbon Dioxide 22.0, Anion Gap 12, BUN 108 H*, Creatinine 12.80 H*, Estim Creat Clear Calc 5.78, Est GFR (MDRD) Af Amer 5 L, Est GFR (MDRD) Non-Af 4 L, BUN/Creatinine Ratio 8.4 L, Glucose 118 H, Calcium 8.5, Phosphorus 9.2 H*, Magnesium 2.3, Albumin 2.9 L 07/27/22 04:30: PT 18.1 H, INR 1.5, APTT 53.7 H 07/27/22 04:30: APTT Cancelled Micro: Microbiology 07/23/22 10:50 Stool Stool Occult Blood (FILI) - Final Occult Blood Positive 07/23/22 10:10 Nasal Secretion SARS-CoV-2 & FLU Antigen (Rapid) - Final Physical Exam Narrative Alert awake oriented x 3 no obvious distress s1s2 no murmurs lungs clear, no wheezes, rhonchi or rales abdomen soft, nontender no edema AV fistula right forearm positive thrill and bruit Assessment & Plan Assessment/Plan (1) ESRD on hemodialysis: PLAN: ESRD on dialysis Saturday, Saturday, Saturday schedule. Dialysis today seen on dialysis Even though very dialysis for 4 hours with blood flow of 450 clearance does not seem very great. BUN, potassium remain high. It is possible there might be an issue with his fistula. I did call his primary director of marketing [employer] Dr. Cantu from [place]. He will arrange for a fistulogram next week. Apparently patient was advised to have a fistulogram last week itself but he did not wanted to get that done. Advised him to get this done as soon as possible since his potassium is consistently high. This can be arranged as outpatient. (2) Acute hyperkalemia: PLAN: Dialysis on 1K bath followed by 2K bath (3) Anemia: PLAN: EGD showed esophagitis, bleeding lesions in stomach treated with cautery. S/p PRBC.
[2022-07-27 12:01] LABS: Partial Thromboplast Time 74.6 Seconds (24.1-36.2)
[2022-07-27] MEDS: HEPARIN/D5w 25,000 UNITS 25,000 UNITS/250 ML IV.SOLN. 16 UNITS CONT INF (14:10)
--- NOTE | 2022-07-27 14:34 | DIALYSIS ---
Hemodialysis x4 hours completed at 1400 on a 1K/2K bath, tolerated well, UF 2000mL, pre BP 88/57, received 10mg midodrine pre-tx, post BP 104/55, maintained profile A, positive critline refill, accessed via RFA AVF using 15G needles, worked well, needles placed further apart today, post BUN drawn, needles pulled post tx and stasis achieved without issue, EPO given, Heparin drip running throughout tx
[2022-07-27 14:57] LABS: BUN 57 mg/dL (7-18)
[2022-07-27 15:19] LABS: Hepatitis B Surface Antigen Non-Reactive (Nonreactive)
[2022-07-27] MEDS: Epoetin Alfa epbx 10,000 UNITS/ML 20000 UNIT IV (16:59)
[2022-07-27 18:31] LABS: Partial Thromboplast Time 71.1 Seconds (24.1-36.2)
[2022-07-27] MEDS: Midodrine HCl 5 MG Tablet PO (21:56)
[2022-07-28] VITALS (32 sets, daily range): BP systolic 69–128; BP diastolic 39–62; PULSE 60–77; RESP 18–28; TEMP 36.2–37.1; O2SAT 86–99
--- NOTE | 2022-07-28 06:15 | NURSING ---
pt called out for blanket. When this nurse entered room, pt was yelling for his mother. Pt had noted tremors. Sp02 in the 70's and dry heaving. CODING VALIDATOR called at this time.
[2022-07-28] MEDS: Ondansetron 4 MG/2 ML Vial IV ×2 (06:30→18:59)
[2022-07-28 06:35] LABS: Base Excess -3 mmol/L (-2 to +2); Bicarbonate 23.9 mmol/L (22-26); Blood Gas Specimen Type ART; PO2 51 mmHG (75-100); SITE L Brach; SO2 81 % (95-99); Total Carbon Dioxide 25 mmol/L; pCO2 50.2 mmHg (35-45); pH 7.29 (7.35-7.45)
--- NOTE | 2022-07-28 06:39 | CT_ITS ---
STUDY: CT HEAD W/O CONTRAST INJECTION REASON FOR EXAM: Male, 67 years old. ams AMS, SUDDEN ONSET HEAD PAIN/NAUSEA, ON THINNERS RADIATION DOSAGE (If Supplied By Facility): CTDIvol = ( 44.99 ) mGy, DLP = ( 812.98 ) mGycm TECHNIQUE: Transaxial CT imaging of the brain was performed without administration of intravenous contrast material. Individualized dose optimization techniques were used for this CT. COMPARISON: No relevant priors. FINDINGS: BRAIN: No acute bleed. No edema. Mild decreased attenuation in the periventricular white matter bilaterally. Brown-white matter differentiation is maintained. Arterial calcifications. VENTRICLES AND SULCI: Not dilated. EXTRA-AXIAL: No hemorrhage, fluid collection, or mass. CALVARIUM / SKULL BASE: Unremarkable. FACE/SINUSES: Unremarkable. SOFT TISSUES: Unremarkable. CT/Brain/Head without Contrast IMPRESSION: No acute abnormality. Chronic microvascular ischemic disease. Electronically Signed: Yecenia Funk MD at 6:59 EDT ,
[2022-07-28 06:45] LABS: Bedside Glucose 121 mg/dL (74-106)
[2022-07-28] MEDS: HYDROmorphone 0.5 MG/0.5 ML SYRINGE IV (06:54)
--- NOTE | 2022-07-28 07:05 | PCM.HOSP.N ---
Hospitalist Note Rapid response called for acute mental status change. He was oriented to self and place at the time of my arrival however having some difficulty answering other questions. Pupils are equal round reactive to light and accommodation, neuro exam was unremarkable. Blood pressure was slightly elevated with 150 systolic compared to his baseline. Heart rate and rhythm were stable. He is typically on the hypotensive side and takes midodrine. His blood sugar was 121. He is on dialysis at baseline. He was admitted for GI bleed and is on Coumadin for mechanical mitral valve. Now on a heparin drip. He has had 2 therapeutic PTTs with the last one being last p.m. at 7. At my arrival he was still slightly confused although answering questions. Exam was overall unremarkable however he was requiring more oxygen than he typically does at baseline at 8 L. We were able to wean this to 5 to 6 L by the end of the rapid response. He was complaining of a extreme headache and having nausea and vomiting. Given his anticoagulation there was concern for a acute head bleed and he was taken for CT of the brain. CT of the brain was negative for any acute bleeding. He had 1 episode of emesis prior to his CT scan and Zofran 4 mg IV push x1 dose was given at that time. By the end of his CAT scan his mental status was improving dramatically he did stated he was very fatigued and complaining of a headache. We did give him Dilaudid 0.5 mg x 1 dose and restarted his heparin drip given the negative CT of his head. I did obtain an ABG as well however its mixed arterial and venous and not all that helpful. By the time we returned to the room he was alert and oriented x3. Etiology of the above event is unclear at this time however we will continue to monitor.
[2022-07-28 08:17] LABS: Anion Gap 11 (5-15); BUN 75 mg/dL (7-18); BUN/Creat Ratio 7.6 RATIO (10-20); Calcium,Total 8.9 mg/dL (8.5-10.1); Chloride 99 mmol/L (98-107); Creatinine, Serum 9.84 mg/dL (0.70-1.30); EST Glomerular Filtration Rate 6 mL/min (>60); Est Glom Filt Rate - Afr Amer 7 mL/min (>60); Estimated Creatinine Clearance 7.52 ml/min; Glucose 147 mg/dL (74-106); Sodium Level 135 mmol/L (136-145)
[2022-07-28 08:24] LABS: International Normalized Ratio 1.8; Prothrombin Time (Protime)PT. 20.2 SECONDS (11.7-14.9)
[2022-07-28 08:25] LABS: Partial Thromboplast Time 46.8 Seconds (24.1-36.2)
[2022-07-28] MEDS: HEPARIN/D5w 25,000 UNITS 25,000 UNITS/250 ML IV.SOLN. 17 UNITS CONT INF (09:05)
[2022-07-28] MEDS: Heparin Injection (Vial) 5,000 UNIT/ML VIAL IV (09:11)
[2022-07-28] MEDS: Midodrine HCl 5 MG Tablet PO ×2 (10:04→22:17)
[2022-07-28] MEDS: Levothyroxine 150 MCG Tablet 300 MCG PO (10:04)
[2022-07-28] MEDS: Ferrous Sulfate 325 MG Tablet PO (10:04)
[2022-07-28] MEDS: Sertraline 50 MG Tablet PO (10:04)
[2022-07-28] MEDS: SEVELAMER CARBONATE 800 MG TABLET PO (10:04)
[2022-07-28] MEDS: Allopurinol 100 MG Tablet PO (10:05)
[2022-07-28] MEDS: Menthol/Lanolin/Calamine/Znox 113 GM Tube 1 APPLIC TOPICAL ×2 (10:05→22:17)
[2022-07-28] MEDS: Folic Acid/Vitamin B Comp W-C 1 Capsule 1 CAP PO (10:05)
[2022-07-28 10:17] LABS: Absolute Lymphocyte Count 0.28 X10^3/uL (0.83-4.51); Absolute Neutrophil Count 7.9 X10^3/uL (2.0-7.7); Basophil# 0.01 X10^3/uL; Basophil% 0.1 % (0-1); Eosinophil# 0.02 X10^3/uL; Eosinophils% 0.2 % (0-5); Hematocrit 23.2 % (40-54); Hemoglobin 7.1 g/dL (13.0-16.5); Lymphocyte # 0.28 X10^3/ul (0.83-4.51); Lymphocyte % 3.2 % (19-41); Mean Corp Hgb Conc 30.6 g/dL (32-36); Mean Corpuscular Hgb 30.7 pg (27.0-32.0); Mean Corpuscular Volume 100.4 fL (80-94); Mean Platelet Vol. 11.3 fl (6.2-12.0); Monocyte# 0.48 X10^3/uL; Monocyte% 5.5 % (0-10); NRBC Flagged by Analyzer 0.3 % (0-5); Neutrophil # 7.93 X10^3/uL (2.7-7.7); Neutrophil % 90.2 % (47-70); POSITIVE DIFFERENTIAL YES; Platelet Count 178 K/mm3 (150-450); RBC Distribution Width CV 16.7 % (11.6-14.6); RBC Distribution Width SD 60.6 fl (35.1-43.9); Red Blood Count 2.31 M/mm3 (4.6-6.2); White Blood Count 8.8 K/mm3 (4.4-11.0)
[2022-07-28 10:39] LABS: Troponin-I HS 80 pg/mL (3.0-78.0)
[2022-07-28 10:49] LABS: Differential Indicated SCAN CRITERIA MET
[2022-07-28 10:59] LABS: Free T3 0.8 pg/mL (2.18-3.98); T4 Free Direct 0.76 ng/dL (0.76-1.46)
[2022-07-28 11:05] LABS: Differential Comment SCANNED
[2022-07-28 11:52] LABS: Troponin-I HS 94 pg/mL (3.0-78.0)
--- NOTE | 2022-07-28 14:07 | PN.HOSP_ITS ---
Subjective Subjective Patient seen and examined. A rapid response was called early this morning due to altered mental status. Neuro exam was reportedly unremarkable then. CT of the brain showed no acute intracranial pathology. He subsequently did improve. On review this morning, he was lethargic but less confused. was by his bedsid e. He denied any fever or chills, but admitted to some mild chest pain. Review of systems is otherwise negative. Objective Data Objective Data Vital Signs: Vital Signs Temp Pulse Resp BP Pulse Ox O2 Del Method O2 Flow Rate 97.7 F L 61 18 76/46 L 96 Nasal Cannula 5 07/28/22 12:54 07/28/22 12:54 07/28/22 12:54 07/28/22 12:54 07/28/22 12:54 07/28/22 12:54 07/28/22 12:54 Oxygen Flow Rate (L/min) 5 Oxygen Delivery Method Nasal Cannula Weight: 250 lb 10.649 oz Body Mass Index (BMI) 35.9 Intake & Output: Intake and Output for Last 24 Hours 07/26/22 07/27/22 07/28/22 23:59 23:59 23:59 Intake Total 1517.83 / 1517.83 1202.21 / 1402.21 1802.13 / 1802.13 Output Total 1999 0 / 0 Balance 1517.83 / 1517.83 -797.79 / -597.79 1802.13 / 1802.13 Lab / Micro Data Result Diagrams: 07/28/22 09:06 07/28/22 07:20 Labs: Laboratory Results - last 24 hr 07/27/22 14:00: BUN 57 H 07/27/22 14:00: Hep Bs Antigen Non-Reactive 07/27/22 17:49: APTT 71.1 H 07/28/22 06:12: POC Glucose 121 H 07/28/22 07:20: PT 20.2 H, INR 1.8, APTT 46.8 H 07/28/22 07:20: Sodium 135 L, Potassium 5.0, Chloride 99, Carbon Dioxide 25.0, Anion Gap 11, BUN 75 H, Creatinine 9.84 H*, Estim Creat Clear Calc 7.52, Est GFR (MDRD) Af Amer 7 L, Est GFR (MDRD) Non-Af 6 L, BUN/Creatinine Ratio 7.6 L, Glucose 147 H, Calcium 8.9 07/28/22 07:20: Free T4 0.76, Free T3 pg/dL 0.8 L 07/28/22 07:20: Troponin I High Sens 80 H 07/28/22 09:06: WBC 8.8, RBC 2.31 L, Hgb 7.1 L, Hct 23.2 L, MCV 100.4 H, MCH 30.7, MCHC 30.6 L, RDW Std Deviation 60.6 H, RDW Coeff of Dominique 16.7 H, Plt Count 178, MPV 11.3, Immature Gran % (Auto) 0.800, Neut % (Auto) 90.2 H, Lymph % (Auto) 3.2 L, [place] % (Auto) 5.5, Eos % (Auto) 0.2, Baso % (Auto) 0.1, Absolute Neuts (auto) 7.9 H, Absolute Lymphs (auto) 0.28 L, Nucleated RBC % 0.3, Differential Comment SCANNED 07/28/22 11:20: Troponin I High Sens 94 H 07/28/22 13:10: Crossmatch See Detail Micro: Microbiology 07/23/22 10:50 Stool Stool Occult Blood (FILI) - Final Occult Blood Positive 07/23/22 10:10 Nasal Secretion SARS-CoV-2 & FLU Antigen (Rapid) - Final ABG Data ABG results: ABG 07/28/22 06:28 Specimen Type ART Sample Site L Brach pH 7.29 L Bicarbonate Actual 23.9 Total CO2 25 Base Excess -3 L O2 Saturation 81 L ABG pCO2 50.2 H ABG pO2 51 L Liter Flow 8.0 Radiography Diagnostic Testing: Radiology Impression Brain CT 07/28/22 06:39 IMPRESSION: No acute abnormality. Chronic microvascular ischemic disease. Electronically Signed: Yecenia Funk MD at 6:59 EDT , Physical Exam Const alert Constitutional Narrative: lethargic HEENT head/scalp atraumatic, moist oral mucous membranes and oropharynx normal Head and Scalp: normocephalic Mouth: dry mucous membranes Eyes PERRL, EOMs intact bilaterally and conjunctivae normal Neck no lymphadenopathy and supple Resp Resp Narrative: soft, nontender, no organomegaly. Cardio regular rate, regular rhythm, S1 normal heart sound, S2 normal heart sound and no murmurs GI normal to inspection, nondistended, normoactive bowel sounds, soft to palpation, non-tender and non-distended Extremity normal to inspection, full ROM and no clubbing, cyanosis or edema Neuro Neuro Narrative: lethargic, responsive to voice, moves all extremities Assessment & Plan Assessment/Plan (1) GI (gastrointestinal bleed): (2) Acute hyperkalemia: (3) Iron deficiency anemia: QUALIFIERS: Iron deficiency anemia type: chronic blood loss Qualified Code(s): D50.0 - Iron deficiency anemia secondary to blood loss (chronic) PLAN: Plan #Acute on chronic anemia due to blood loss anemia from GI bleed * EGD showed blood in the back of the mouth with grade B reflux esophagitis and 3 bleeding angiodysplastic lesions in the stomach which were treated with bipolar cautery and a patent Billroth I gastrojejunostomy characterized by healthy-appearing mucosa. * on PPI * Hb today is 7.1 * has been transfused with 2 units of PRBCs * Hb has been dropping since he had the EGD from 7.6 down to 7.1 * will discuss with GI about review, as he may still be bleeding * #Acute metabolic encephalopathy * etiology is unclear. Patient now more alert. * CT of the brain shwoed no acute intracranial pathology * stop all neurotoxic meds * will monitor * #Hypotension * patient has chronic hypotensin, and is on midodrine * BP usually runs in the 90s and 100s systolic * BP today has been in the 70s systolic. Patient given a bolus of IVF, but still remais hypotensive * transfer to ICU for closer monitoring * if MAP remains below 65, transfuse with one unit of PRBC * #ESRD: on HD MWF. Nephrology on board #History of mitral valve replacement * On Coumadin and being bridged with heparin drip. INR today is 1.8. In light of anemia, will DC heparin drip. * #Paroxysmal A. fib: On Coumadin. #MGUS: Stable #Hypothyroidism * TSH was markedly elevated at 42. says his synthroid dose was recently increased by his PCP * Free T3 is low at 0.8 but free T4 is on the lower limit of normal at 0.76 * Continue Synthroid at 200 mcg daily. and says that he has been compliant with it. * #Gout: On allopurinol DVT prophylaxis: On Coumadin. Disposition: transfer to ICU Charges/Coding Visit Charges Inpatient E&M: 21999 Subs Hosp L3
[2022-07-28 16:19] LABS: Troponin-I HS 102 pg/mL (3.0-78.0)
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
[2022-07-28] MEDS: 0.9% Saline Lock 10 ML Syringe IV (22:22)
[2022-07-29] VITALS (39 sets, daily range): BP systolic 72–124; BP diastolic 45–62; PULSE 60–85; RESP 18–27; TEMP 36.6–38; O2SAT 90–99
[2022-07-29] MEDS: fentaNYL 100 MCG/2 ML Ampul 25 MCG IV (02:30)
[2022-07-29 04:30] LABS: Absolute Lymphocyte Count 0.21 X10^3/uL (0.83-4.51); Absolute Neutrophil Count 9.5 X10^3/uL (2.0-7.7); Basophil# 0.01 X10^3/uL; Basophil% 0.1 % (0-1); Hematocrit 26.1 % (40-54); Hemoglobin 8.3 g/dL (13.0-16.5); Lymphocyte # 0.21 X10^3/ul (0.83-4.51); Lymphocyte % 2.1 % (19-41); Mean Corp Hgb Conc 31.8 g/dL (32-36); Mean Corpuscular Hgb 32.3 pg (27.0-32.0); Mean Corpuscular Volume 101.6 fL (80-94); Mean Platelet Vol. 11.4 fl (6.2-12.0); Monocyte# 0.44 X10^3/uL; Monocyte% 4.3 % (0-10); NRBC Flagged by Analyzer 0.4 % (0-5); Neutrophil # 9.47 X10^3/uL (2.7-7.7); Neutrophil % 92.5 % (47-70); POSITIVE DIFFERENTIAL YES; POSITIVE MORPHOLOGY YES; Platelet Count 167 K/mm3 (150-450); RBC Distribution Width CV 17.8 % (11.6-14.6); RBC Distribution Width SD 65.7 fl (35.1-43.9); Red Blood Count 2.57 M/mm3 (4.6-6.2); White Blood Count 10.2 K/mm3 (4.4-11.0)
[2022-07-29 04:43] LABS: Differential Indicated SCAN CRITERIA MET; International Normalized Ratio 2.4; Prothrombin Time (Protime)PT. 26.1 SECONDS (11.7-14.9)
[2022-07-29 04:48] LABS: Anisocytosis 2+; Macrocytosis 1+
[2022-07-29 05:04] LABS: Anion Gap 12 (5-15); BUN 84 mg/dL (7-18); BUN/Creat Ratio 7.4 RATIO (10-20); Calcium,Total 9.1 mg/dL (8.5-10.1); Chloride 97 mmol/L (98-107); EST Glomerular Filtration Rate 5 mL/min (>60); Est Glom Filt Rate - Afr Amer 6 mL/min (>60); Estimated Creatinine Clearance 6.55 ml/min; Glucose 192 mg/dL (74-106); Potassium 6.1 mmol/L (3.5-5.1); Sodium Level 132 mmol/L (136-145)
--- NOTE | 2022-07-29 06:18 | EX.PCM.CONCC ---
Assessment & Plan Assessment/Plan (1) Iron deficiency anemia: QUALIFIERS: Iron deficiency anemia type: chronic blood loss Qualified Code(s): D50.0 - Iron deficiency anemia secondary to blood loss (chronic) PLAN: Plan RECOMMENDATIONS: 1. Wean supplemental oxygen as tolerated to maintain saturations at or above 90%. 2. Continue to monitor H&H. Transfuse if hemoglobin drops below 7 g/dL. 3. Continue PPI therapy and octreotide per gastroenterology recommendations. 4. Continue to hold heparin infusion for now. 5. Continue scheduled midodrine per home regimen. IMPRESSIONS: 1. Acute blood loss anemia Appear to be secondary to angiodysplasias, which were medically managed by gastroenterology. They were treated endoscopically. Plan to continue current supportive measures including PPI therapy and octreotide infusion. Continue to monitor H&H daily and transfuse if hemoglobin drops below 7 g/dL. 2. Hypotension This appears to be a chronic condition for the patient, as he is scheduled to receive midodrine with dialysis. His hemodynamic status was somewhat questionable yesterday, which prompted his transfer to the ICU. The patient did receive additional supplemental IV fluids and transfusion of blood products with stabilization in his hemodynamics. He has not required vasopressor support, to date. 3. End-stage renal disease on hemodialysis Continue supportive measures per nephrology recommendations. 4. History of mitral valve replacement/paroxysmal atrial fibrillation/hypothyroidism Complicates care, management, recovery and prognosis. Continue to hold heparin infusion pending stabilization in anemia status. Continue baseline medications including midodrine as scheduled. This note was generated with [employer] dictation software. It may contain incorrect words, spelling, and punctuation that were not noted in checking the note before signing. HPI Consult Data Date of Consult: 07/29/22 HPI Narrative Reason for Consultation: Hypotension HPI Narrative: The patient is a 67-year-old male, with a history as outlined below, who presented initially to the emergency department on July 23 with generalized weakness and black stools. The patient has a self-reported history of COPD of unknown severity along with chronic hypoxemic respiratory failure. The patient's medical history is also significant for end-stage renal disease on hemodialysis, chronic anemia, hypothyroidism, mechanical mitral valve, history of atrial fibrillation and suspected sleep apnea. The patient is chronically anticoagulated on Coumadin. At the time of his presentation to the hospital, the patient was noted to be significantly more anemic with a presenting hemoglobin of 6.7 g/dL. His INR at that time was noted to be 2.7. The patient was seen in consultation by gastroenterology and underwent endoscopic evaluation which revealed reflux esophagitis along with 3 bleeding angiodysplastic lesions in the stomach, which were treated with bipolar cautery. The patient was additionally maintained on PPI therapy. He has been maintained on routine dialysis sessions per nephrology along with scheduled midodrine, per his outpatient regimen. On the morning of July 28, a rapid response team was called for an acute mental status change. Due to the fact that he was being maintained on a heparin infusion because of his mechanical mitral valve, there was initial concern for an intracranial bleed. Therefore, the patient was taken for a stat CT head, which was unremarkable. An arterial blood gas was obtained which revealed a pH of 7.29 with a PCO2 of 50 and PO2 of 51. It was noted that by the time his CAT scan was being completed, the patient's mentation had improved and actually returned back to baseline. Yesterday, the patient was also noted to have blood pressures in the 70s, which was treated with supplemental IV fluids and transfusion of 1 unit of packed red blood cells. Hemoglobin this morning is 8.3 g/dL. INR was noted to be 2.4. The patient was initially transferred to the medical intensive care unit yesterday due to his hypotension and concern for that he would require vasopressor support. However, after receiving the aforementioned fluids and blood products, the patient never had to be started on Levophed. The patient currently denies any abdominal pain, nausea or vomiting. He does endorse the presence of shortness of breath, however. [facility] Medical History Anemia due to chronic kidney disease, on chronic dialysis Anticoagulant long-term use Atrial flutter Chronic atrial fibrillation Chronic kidney disease COPD (chronic obstructive pulmonary disease) CRF (chronic renal failure) Diabetes mellitus ESRD (end stage renal disease) Hypercalcemia Hypertension Hypertension Hypothyroidism Iron deficiency anemia Metabolic acidosis Obstructive sleep apnea Pacemaker Sleep apnea Home Medications allopurinol 100 mg tablet 100 mg PO DAILYCM Check with primary doctor 07/12/16 [History Last Taken Unknown] sertraline 50 mg tablet 50 mg PO DAILY Check with primary doctor 07/12/16 [History Last Taken Unknown] warfarin 5 mg tablet 5 mg PO VELEZ Check with primary doctor 07/12/16 [History Last Taken Unknown] warfarin 7.5 mg tablet 7.5 mg PO MOTUWETHFRSA Check with primary doctor 11/09/19 [History Last Taken 05/23/20] iron 40 mg capsule 65 mg PO DAILY Check with primary doctor 06/25/22 [History Last Taken Unknown] midodrine 10 mg tablet 10 mg PO QODAY Check with primary doctor 06/25/22 [History Last Taken Unknown] sevelamer HCl 800 mg tablet 800 mg PO DAILY Check with primary doctor 06/25/22 [History Last Taken Unknown] vitamin B complex and vitamin C no.20-folic acid 1 mg capsule (Triphrocaps) 1 cap PO DAILY Check with primary doctor 06/25/22 [History Last Taken Unknown] levothyroxine 150 mcg tablet 300 mcg PO DAILY@0600 Check with primary doctor 07/23/22 [History Last Taken Unknown] Allergy/AdvReac Type Severity Reaction Status Date / Time Sulfa (Sulfonamide Allergy Intermediate PT NOT SURE Verified 06/25/22 08:09 Antibiotics) Family History (Updated 07/23/22 @ 12:[address] 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 Physical Exam Const alert and no apparent distress General Appearance: cooperative Nutritional Appearance: obese HEENT normocephalic and head/scalp atraumatic Eyes PERRL, EOMs intact bilaterally and conjunctivae normal Neck supple General: trachea midline Chest inspection of chest normal Resp Effort and Inspection: tachypneic Auscultation: diminished lung sounds Cardio regular rate and regular rhythm Heart Sounds: murmur GI normal to inspection, nondistended, normoactive bowel sounds Extremity no clubbing, cyanosis or edema Skin no rashes or lesions noted Neuro CN's II-XII intact bilaterally and no focal motor deficits Psych Mood & Affect: flat affect Lab / Micro Data Result Diagrams: 07/29/22 04:15 07/29/22 04:15 Labs: Laboratory Results - last 24 hr 07/28/22 07:20: PT 20.2 H, INR 1.8, APTT 46.8 H 07/28/22 07:20: Sodium 135 L, Potassium 5.0, Chloride 99, Carbon Dioxide 25.0, Anion Gap 11, BUN 75 H, Creatinine 9.84 H*, Estim Creat Clear Calc 7.52, Est GFR (MDRD) Af Amer 7 L, Est GFR (MDRD) Non-Af 6 L, BUN/Creatinine Ratio 7.6 L, Glucose 147 H, Calcium 8.9 07/28/22 07:20: Free T4 0.76, Free T3 pg/dL 0.8 L 07/28/22 07:20: Troponin I High Sens 80 H 07/28/22 09:06: WBC 8.8, RBC 2.31 L, Hgb 7.1 L, Hct 23.2 L, MCV 100.4 H, MCH 30.7, MCHC 30.6 L, RDW Std Deviation 60.6 H, RDW Coeff of Dominique 16.7 H, Plt Count 178, MPV 11.3, Immature Gran % (Auto) 0.800, Neut % (Auto) 90.2 H, Lymph % (Auto) 3.2 L, Moody % (Auto) 5.5, Eos % (Auto) 0.2, Baso % (Auto) 0.1, Absolute Neuts (auto) 7.9 H, Absolute Lymphs (auto) 0.28 L, Nucleated RBC % 0.3, Differential Comment SCANNED 07/28/22 11:20: Troponin I High Sens 94 H 07/28/22 13:10: Blood Type O POSITIVE, Antibody Screen NEGATIVE, Crossmatch See Detail 07/28/22 15:15: Troponin I High Sens 102 H 07/29/22 04:15: PT 26.1 H, INR 2.4 07/29/22 04:15: Sodium 132 L, Potassium 6.1 H*, Chloride 97 L, Carbon Dioxide 23.0, Anion Gap 12, BUN 84 H, Creatinine 11.30 H*, Estim Creat Clear Calc 6.55, Est GFR (MDRD) Af Amer 6 L, Est GFR (MDRD) Non-Af 5 L, BUN/Creatinine Ratio 7.4 L, Glucose 192 H, Calcium 9.1 07/29/22 04:15: WBC 10.2, RBC 2.57 L, Hgb 8.3 L, Hct 26.1 L, MCV 101.6 H, MCH 32.3 H, MCHC 31.8 L, RDW Std Deviation 65.7 H, RDW Coeff of Dominique 17.8 H, Plt Count 167, MPV 11.4, Immature Gran % (Auto) 1.000 H, Neut % (Auto) 92.5 H, Lymph % (Auto) 2.1 L, Moody % (Auto) 4.3, Eos % (Auto) 0.0, Baso % (Auto) 0.1, Absolute Neuts (auto) 9.5 H, Absolute Lymphs (auto) 0.21 L, Nucleated RBC % 0.4, Anisocytosis 2+, Macrocytosis 1+ Charges/Coding Visit Charges Inpatient E&M: 74016 Init Hosp L3
[2022-07-29] MEDS: Levothyroxine 150 MCG Tablet 300 MCG PO (06:50)
[2022-07-29] MEDS: Ondansetron 4 MG/2 ML Vial IV (07:30)
--- NOTE | 2022-07-29 07:50 | CT_ITS ---
STUDY: CT ABDOMEN AND PELVIS WITHOUT CONTRAST REASON FOR EXAM: Male, 67 years old. Abdominal pain RADIATION DOSAGE (If Supplied By Facility): CTDIvol = ( 23.55 ) mGy, DLP = ( 1376.60 ) mGycm TECHNIQUE: Transaxial images were obtained from the dome of the diaphragm to the symphysis pubis without oral contrast, and without intravenous contrast. Sagittal and coronal images were reconstructed. Individualized dose optimization techniques were used for this CT. COMPARISON: None. FINDINGS: There is bibasilar consolidation, most pronounced within the right lower lobe. There are coronary artery calcifications. The lack of intravenous contrast limits evaluation of solid visceral organs. Normal liver. The gallbladder appears to partially contracted. Normal spleen. Normal pancreas. Normal bilateral adrenal glands. Normal right kidney. There is left hydroureteronephrosis secondary to a 2.2 x 1.5 cm calculus within the proximal ureter. There is an additional nonobstructing 1 cm left renal calculus. There is a metallic density, possibly a coil adjacent to the anterior left kidney suggestive of prior intervention. Normal visualized stomach. Normal small intestine. There are multiple colonic diverticula consistent with diverticulosis. There is non-visualization of the appendix. There is diffuse atherosclerotic calcification of the abdominal aorta, without a demonstrated aneurysm. Normal inferior vena cava. Normal retroperitoneum. Normal urinary bladder. Normal abdominal wall. There are diffuse degenerative changes of the visualized lumbar spine. CT/Abdomen/Pelvis without Cont IMPRESSION: Left hydroureteronephrosis secondary to a 2.2 x 1.5 cm calculus within the proximal ureter. Nonobstructing 1 cm left renal calculus. Atherosclerosis. Colonic diverticulosis. Bibasilar consolidation, most pronounced within the right lower lobe. Electronically Signed: Carol Zarate MD at 8:28 EST ,
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
[2022-07-29] MEDS: 0.9% Saline Lock 10 ML Syringe IV (10:08)
[2022-07-29] MEDS: Midodrine HCl 5 MG Tablet 10 MG PO (10:08)
[2022-07-29] MEDS: Midodrine HCl 5 MG Tablet PO ×2 (10:12→21:57)
[2022-07-29] MEDS: Sodium Polystyrene Sulfonate 15 GM/60 ML UDC 30 GM PO (10:14)
[2022-07-29] MEDS: Menthol/Lanolin/Calamine/Znox 113 GM Tube 1 APPLIC TOPICAL ×2 (15:59→21:56)
--- NOTE | 2022-07-29 16:08 | NURSING ---
pt rouses to touch, mumbles a few words and returns to sleep. CPOT 6 w/position change. w/in 3min, pt return to sleep w/CPOT of 0. no meds given
[2022-07-29 20:56] LABS: Allen Test Positive; Base Excess -3 mmol/L (-2 to +2); Blood Gas Specimen Type ART; O2 Delivery Device Cannula; PO2 69 mmHG (75-100); SITE L Radial; SO2 91 % (95-99); Total Carbon Dioxide 26 mmol/L; pCO2 49.4 mmHg (35-45)
--- NOTE | 2022-07-29 23:38 | CON.PCM.UR_ITS ---
Assessment & Plan Assessment/Plan (1) Hydronephrosis with renal and ureteral calculous obstruction: PLAN: Recommend he have a left nephrostomy tube placed for obstruction of the left collecting system he has a 1 cm stone. With such a large stone stent placement would not be sufficient in relieving the obstruction therefore he is get a needed left nephrostomy tube placement and after the tube is placed we could plan for a percutaneous approach to remove the stone from the left kidney that is causing obstruction and chronic left hydronephrosis possible he may have an infection in his kidney that may be causing sepsis so would recommend he have this nephrostomy tube placed soon as possible. He made to be transferred out of the nephrostomy tube is not available to be placed. HPI Consult Data Date of Consult: 07/29/22 HPI Narrative Reason for Consultation: Large 1 cm left kidney stone HPI Narrative: MACARENA BARRETT, is a 67 male with multiple medical problems including chronic kidney disease he is on dialysis who is in the stepdown ICU unit, his blood pre ssures been running fairly low currently is about 80s over 50s he had a CT scan done today that demonstrates left hydronephrosis and a very large 1 cm stone in the proximal left ureter which appears to be a chronic finding. The patient does not really provide a good history and physical. Does not really respond to questions appropriately only says yes. I asked him if he had a prior urologist he said yes but does not know who? In reviewing the CAT scan he has a very large 1 cm stone in the proximal left ureter by the only way to get to the stone would be to do a percutaneous approach and he would have to have a left nephrostomy tube placed prior to this in anticipation. [facility] Medical History Anemia due to chronic kidney disease, on chronic dialysis Anticoagulant long-term use Atrial flutter Chronic atrial fibrillation Chronic kidney disease COPD (chronic obstructive pulmonary disease) CRF (chronic renal failure) Diabetes mellitus ESRD (end stage renal disease) Hypercalcemia Hypertension Hypertension Hypothyroidism Iron deficiency anemia Metabolic acidosis Obstructive sleep apnea Pacemaker Sleep apnea unable to obtain Home Medications allopurinol 100 mg tablet 100 mg PO DAILYCM Check with primary doctor 07/12/16 [History Last Taken Unknown] sertraline 50 mg tablet 50 mg PO DAILY Check with primary doctor 07/12/16 [Hist ory Last Taken Unknown] warfarin 5 mg tablet 5 mg PO VELEZ Check with primary doctor 07/12/16 [History Last Taken Unknown] warfarin 7.5 mg tablet 7.5 mg PO MOTUWETHFRSA Check with primary doctor 11/09/19 [History Last Taken 05/23/20] iron 40 mg capsule 65 mg PO DAILY Check with primary doctor 06/25/22 [History Last Taken Unknown] midodrine 10 mg tablet 10 mg PO QODAY Check with primary doctor 06/25/22 [History Last Taken Unknown] sevelamer HCl 800 mg tablet 800 mg PO DAILY Check with primary doctor 06/25/22 [History Last Taken Unknown] vitamin B complex and vitamin C no.20-folic acid 1 mg capsule (Triphrocaps) 1 cap PO DAILY Check with primary doctor 06/25/22 [History Last Taken Unknown] levothyroxine 150 mcg tablet 300 mcg PO DAILY@0600 Check with primary doctor 07/23/22 [History Last Taken Unknown] Allergy/AdvReac Type Severity Reaction Status Date / Time Sulfa (Sulfonamide Allergy Intermediate PT NOT SURE Verified 06/25/22 08:09 Antibiotics) Family History (Updated 07/23/22 @ 12:[address] 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 Lab / Micro Data Result Diagrams: 07/29/22 04:15 07/29/22 04:15 Labs: Laboratory Results - last 24 hr 07/29/22 04:15: PT 26.1 H, INR 2.4 07/29/22 04:15: Sodium 132 L, Potassium 6.1 H*, Chloride 97 L, Carbon Dioxide 23.0, Anion Gap 12, BUN 84 H, Creatinine 11.30 H*, Estim Creat Clear Calc 6.55, Est GFR (MDRD) Af Amer 6 L, Est GFR (MDRD) Non-Af 5 L, BUN/Creatinine Ratio 7.4 L, Glucose 192 H, Calcium 9.1 07/29/22 04:15: WBC 10.2, RBC 2.57 L, Hgb 8.3 L, Hct 26.1 L, MCV 101.6 H, MCH 32.3 H, MCHC 31.8 L, RDW Std Deviation 65.7 H, RDW Coeff of Dominique 17.8 H, Plt Count 167, MPV 11.4, Immature Gran % (Auto) 1.000 H, Neut % (Auto) 92.5 H, Lymph % (Auto) 2.1 L, [place] % (Auto) 4.3, Eos % (Auto) 0.0, Baso % (Auto) 0.1, Absolute Neuts (auto) 9.5 H, Absolute Lymphs (auto) 0.21 L, Nucleated RBC % 0.4, Anisocytosis 2+, Macrocytosis 1+ ABG Data ABG results: ABG 07/29/22 20:48 Specimen Type ART Sample Site L Radial pH 7.30 L Bicarbonate Actual 24.0 Total CO2 26 Base Excess -3 L O2 Saturation 91 L ABG pCO2 49.4 H ABG pO2 69 L Kraig Test Positive O2 Delivery Device Cannula Liter Flow 4.0 Radiology Impression Abdomen/Pelvis CT 07/29/22 07:50 IMPRESSION: Left hydroureteronephrosis secondary to a 2.2 x 1.5 cm calculus within the proximal ureter. Nonobstructing 1 cm left renal calculus. Atherosclerosis. Colonic diverticulosis. Bibasilar consolidation, most pronounced within the right lower lobe. Electronically Signed: Carol Zarate MD at 8:28 EST ,
[2022-07-30] VITALS (59 sets, daily range): BP systolic 59–128; BP diastolic 35–82; PULSE 79–121; RESP 14–36; TEMP 36.3–37.1; O2SAT 84–98
[2022-07-30] MEDS: Levothyroxine 150 MCG Tablet 300 MCG PO (05:25)
[2022-07-30 05:29] LABS: Hematocrit 23.5 % (40-54); Hemoglobin 7.4 g/dL (13.0-16.5); Mean Corp Hgb Conc 31.5 g/dL (32-36); Mean Corpuscular Hgb 31.5 pg (27.0-32.0); Mean Platelet Vol. 11.2 fl (6.2-12.0); POSITIVE COUNT YES; POSITIVE DIFFERENTIAL YES; POSITIVE MORPHOLOGY YES; Platelet Count 104 K/mm3 (150-450); RBC Distribution Width CV 16.9 % (11.6-14.6); RBC Distribution Width SD 61.4 fl (35.1-43.9); Red Blood Count 2.35 M/mm3 (4.6-6.2); White Blood Count 5.3 K/mm3 (4.4-11.0)
[2022-07-30 05:32] LABS: Differential Indicated MANUAL DIFF
[2022-07-30] MEDS: Ondansetron 4 MG/2 ML Vial IV (05:37)
[2022-07-30] MEDS: Acetaminophen 325 MG Tablet 650 MG PO (05:37)
[2022-07-30 05:53] LABS: Anion Gap 14 (5-15); BUN 89 mg/dL (7-18); BUN/Creat Ratio 7.8 RATIO (10-20); Calcium,Total 8.5 mg/dL (8.5-10.1); Chloride 99 mmol/L (98-107); EST Glomerular Filtration Rate 5 mL/min (>60); Est Glom Filt Rate - Afr Amer 6 mL/min (>60); Estimated Creatinine Clearance 6.49 ml/min; Glucose 163 mg/dL (74-106); Potassium 5.1 mmol/L (3.5-5.1); Sodium Level 135 mmol/L (136-145)
--- NOTE | 2022-07-30 05:55 | ECHOCS_ITS ---
Reason For Study: elevated troponins Procedure This was a 2D Doppler, Color Flow transthoracic echocardiogram. The study was technically difficult. Due to body habitus and PT is on ventilator. Contrast injection was performed. Exam performed portable in ICU/CCU. Left Ventricle Normal LV size. The estimated ejection fraction is 55 %. Unable to assess diastolic dysfunction. Mild septal hypokinesis. Right Ventricle Normal RV size. ICD or pacer leads identified within the right ventricle. Echodensity noted in the RV that appears to be the pacemaker wire itself rather than a vegetation associated with it. Correlate clinically. Normal systolic function. Atria The left atrium is moderately enlarged. The right atrium is mildly enlarged. No doppler evidence for ASD. Mitral Valve There is severe mitral annular calcification. Calcifications noted on sub mitral apparatus. There is no mitral valve stenosis. No mitral valve insufficiency. Tricuspid Valve There is no tricuspid stenosis. Mild tricuspid valve insufficiency. Pulmonary artery systolic pressure is 40 mmHg. Aortic Valve There is no aortic stenosis. No aortic valve insufficiency. Normal prosthetic aortic valve. Pulmonic Valve There is no pulmonic valvular stenosis. No pulmonic valve insufficiency. Great Vessels Normal aortic root. Pericardium/Pleural No pericardial effusion. Medication Diluted definity 3.0ml given slow IV push to enhance endocardial definition. MMode/2D Measurements & Calculations LVIDd: 4.5 cm IVSd: 1.1 cm LVOT diam: 2.0 cm LVIDs: 2.5 cm LVPWd: 1.0 cm RVDd: 3.4 cm FS: 43.4 % LVOT area: 3.1 cm2 Ao root diam: 3.5 cm LAV(MOD-bp): 120.7 ml LVAd ap4: 27.1 cm2 LAV(MOD-bp) Indexed: 52.6 ml/m2 LVLd ap4: 7.0 cm LAV(MOD-sp2): 128.9 ml EDV(MOD-sp4): 86.2 ml LAV(MOD-sp4): 104.4 ml EDV(sp4-el): 88.6 ml LVAs ap4: 16.5 cm2 LVLs ap4: 6.2 cm ESV(MOD-sp4): 37.2 ml ESV(sp4-el): 37.4 ml EF(MOD-sp4): 56.8 % EF(sp4-el): 57.8 % LVAd ap2: 34.4 cm2 SV(MOD-sp4): 48.9 ml SV(MOD-sp2): 69.0 ml LVLd ap2: 8.4 cm EDV(MOD-sp2): 121.8 ml EDV(sp2-el): 119.5 ml LVAs ap2: 20.6 cm2 LVLs ap2: 6.8 cm ESV(MOD-sp2): 52.8 ml ESV(sp2-el): 52.9 ml EF(MOD-sp2): 56.6 % SV(sp4-el): 51.2 ml LA dimension(2D): 4.3 cm LA A4 area: 31.1 cm2 RA A4 area: 23.3 cm2 Time Measurements MV dec time: 0.16 sec Doppler Measurements & Calculations MV E max noah: 123.5 cm/sec Lat Peak E' Noah: 8.5 cm/sec Med Peak E' Noah: 6.3 cm/sec MV A max noah: 84.1 cm/sec E/E' lat: 14.6 E/E' med: 19.7 MV E/A: 1.5 Ao V2 max: 315.1 cm/sec LV V1 max: 120.6 cm/sec MV dec slope: 781.7 cm/sec2 Ao max P.8 mmHg LV V1 max P.8 mmHg Ao V2 mean: 226.7 cm/sec LV V1 mean P.3 mmHg Ao mean P.7 mmHg LV V1 mean: 87.8 cm/sec Ao V2 VTI: 46.6 cm LV V1 VTI: 19.9 cm NILSA(I,D): 1.3 cm2 NILSA(V,D): 1.2 cm2 MR max noah: 482.1 cm/sec SV(LVOT): 61.3 ml PA V2 max: 130.5 cm/sec MR max P.0 mmHg TR max noah: 286.1 cm/sec TR max P.7 mmHg ECHO/Echo Complete W/ Contrast Interpretation Summary The estimated ejection fraction is 55 %. Unable to assess diastolic dysfunction. The left atrium is moderately enlarged. Echodensity noted in the RV that appears to be the pacemaker wire itself rather than a vegetation associated with it. Correlate clinically. Ordering Physician: Mari Yo Referring Physician: Shekhar Williamson Performed By: Luna Murray, GALLITO, RVT
--- NOTE | 2022-07-30 07:08 | PCM.PN.INT ---
Assessment & Plan Assessment/Plan (1) Iron deficiency anemia: QUALIFIERS: Iron deficiency anemia type: chronic blood loss Qualified Code(s): D50.0 - Iron deficiency anemia secondary to blood loss (chronic) PLAN: Plan RECOMMENDATIONS: 1. Wean supplemental oxygen as tolerated to maintain saturations at or above 90%. 2. Continue to monitor H&H. Transfuse if hemoglobin drops below 7 g/dL. 3. Continue PPI therapy and octreotide per gastroenterology recommendations. 4. Continue to hold heparin infusion for now. 5. Hold midodrine while on pressors 6. Arrange for nephrostomy tube on left 7. Initiate broad-spectrum antibiotics pending nephrostomy results IMPRESSIONS: 1. Acute blood loss anemia Appear to be secondary to angiodysplasias, which were medically managed by gastroenterology. They were treated endoscopically. Plan to continue current supportive measures including PPI therapy and octreotide infusion. Continue to monitor H&H daily and transfuse if hemoglobin drops below 7 g/dL. GI planning additional work-up when patient is more hemodynamically stable. 2. 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 His hemodynamic status was somewhat questionable yesterday, which prompted his transfer to the ICU. The patient did receive additional supplemental IV fluids and transfusion of blood products with stabilization in his hemodynamics. He has not required vasopressor support, to date. 3. End-stage renal disease on hemodialysis Continue supportive measures per nephrology recommendations. 4. History of mitral valve replacement/paroxysmal atrial fibrillation/hypothyroidism Complicates care, management, recovery and prognosis. Continue to hold heparin infusion pending stabilization in anemia status. Continue baseline medications including midodrine as scheduled. TIME: 32 minutes critical care time spent addressing patient septic shock, acute blood loss anemia, ESRD, review of all data and collaboration with care team Subjective Subjective Patient has become more confused overnight. Patient was initiated on Levophed this morning. Patient has had low-grade fevers noted. Patient did have dialysis yesterday and reportedly tolerated. Patient has had a total of 3 units of packed red blood cells. Patient did have a CT of the abdomen yesterday showing an obstructing left renal colliculus with significant hydronephrosis. Urology had recommended a nephrostomy tube. Objective Data Objective Data Vital Signs: Vital Signs Temp Pulse Resp BP Pulse Ox O2 Del Method O2 Flow Rate 37.1 C 100 30 H 115/63 95 Nasal Cannula 6 07/30/22 07:00 07/30/22 07:00 07/30/22 07:00 07/30/22 07:04 07/30/22 07:00 07/30/22 07:00 07/30/22 07:00 Oxygen Flow Rate (L/min) 6 Oxygen Delivery Method Nasal Cannula Weight: 113.7 kg Body Mass Index (BMI) 35.9 Intake & Output: Intake and Output for Last 24 Hours 07/29/22 07/29/22 07/30/22 00:59 23:59 23:59 Intake Total 321.31 / 321.31 Output Total Balance 321.31 / 321.31 Lab / Micro Data Attestation: I reviewed the patient's lab results. Result Diagrams: 07/30/22 05:15 07/30/22 05:15 Labs: Laboratory Results - last 24 hr 07/30/22 05:15: WBC 5.3, RBC 2.35 L, Hgb 7.4 L, Hct 23.5 L, MCV 100.0 H, MCH 31.5, MCHC 31.5 L, RDW Std Deviation 61.4 H, RDW Coeff of Dominique 16.9 H, Plt Count 104 L, MPV 11.2, Neut % (Auto) Not Reportable 07/30/22 05:15: Sodium 135 L, Potassium 5.1, Chloride 99, Carbon Dioxide 22.0, Anion Gap 14, BUN 89 H, Creatinine 11.40 H*, Estim Creat Clear Calc 6.49, Est GFR (MDRD) Af Amer 6 L, Est GFR (MDRD) Non-Af 5 L, BUN/Creatinine Ratio 7.8 L, Glucose 163 H, Calcium 8.5 Micro: Microbiology 07/23/22 10:50 Stool Stool Occult Blood (FILI) - Final Occult Blood Positive 07/23/22 10:10 Nasal Secretion SARS-CoV-2 & FLU Antigen (Rapid) - Final ABG Data ABG results: ABG 07/29/22 20:48 Specimen Type ART Sample Site L Radial pH 7.30 L Bicarbonate Actual 24.0 Total CO2 26 Base Excess -3 L O2 Saturation 91 L ABG pCO2 49.4 H ABG pO2 69 L Kraig Test Positive O2 Delivery Device Cannula Liter Flow 4.0 Attestation: I personally reviewed and interpreted this ABG as follows: (Partially compensated respiratory acidosis with increased AA gradient) Radiography Diagnostic Testing: Radiology Impression Abdomen/Pelvis CT 07/29/22 07:50 IMPRESSION: Left hydroureteronephrosis secondary to a 2.2 x 1.5 cm calculus within the proximal ureter. Nonobstructing 1 cm left renal calculus. Atherosclerosis. Colonic diverticulosis. Bibasilar consolidation, most pronounced within the right lower lobe. Electronically Signed: Carol Zarate MD at 8:28 EST , Physical Exam Const no apparent distress Constitutional Narrative: Opens eyes to voice, but not readily interacting. Diaphoretic. General Appearance: lethargic Nutritional Appearance: obese HEENT normocephalic and head/scalp atraumatic Eyes PERRL, EOMs intact bilaterally and conjunctivae normal Neck supple General: trachea midline Chest inspection of chest normal Resp Effort and Inspection: tachypneic Auscultation: diminished lung sounds; Negative for rales, rhonchi or wheezes Cardio regular rate, S1 normal heart sound, S2 normal heart sound, no rub and no gallops Rate: tachycardic Heart Sounds: murmur GI normal to inspection, nondistended, normoactive bowel sounds Extremity no clubbing, cyanosis or edema Skin no rashes or lesions noted Neuro CN's II-XII intact bilaterally and no focal motor deficits Psych Mood & Affect: flat affect Charges/Coding Procedures Hospitalists Procedures: 09790 Critial Care 1st Hr
[2022-07-30 07:25] LABS: Bedside Glucose 162 mg/dL (74-106)
[2022-07-30 07:25] LABS: Lymphocyte 2 % (19-41); Metamyelocyte 1 % (0-1); Monocyte 1 % (0-10); Neutrophil-Band 8 % (0-5); Neutrophil-Segmented 88 % (47-70); Nucleated Red Bld Cells,Manual 1 % (0-5); Total Cells Counted 100 (MANUAL DIFF)
[2022-07-30 07:26] LABS: Anisocytosis 2+; Hypochromasia 1+; Platelet Estimate MOD DEC (ADEQ)
[2022-07-30 07:27] LABS: Absolute Neutrophil Count 5.1 X10^3/uL (2.0-7.7); Neutrophil # 5.08 X10^3/uL (2.7-7.7)
[2022-07-30 08:38] LABS: International Normalized Ratio 2.8; Prothrombin Time (Protime)PT. 29.3 SECONDS (11.7-14.9)
[2022-07-30 08:39] LABS: Partial Thromboplast Time 50.9 Seconds (24.1-36.2)
--- NOTE | 2022-07-30 09:53 | PCM.PROGNOTE ---
Subjective Subjective Patient seems to be in a lot of pain today. He is only answering yes and no questions. He underwent CT scan of the abdomen pelvis.the findings had displayed a left hydroureteronephrosis secondary to a 2.2 x 1.5 cm calculus within the proximal ureter. A nonobstructing 1 cm left renal calculus and bibasilar consolidation most pronounced on the right lower lobe. ? Objective Data Objective Data Vital Signs: Vital Signs Temp Pulse Resp BP Pulse Ox O2 Del Method O2 Flow Rate 98.3 F 95 25 H 123/57 H 92 Nasal Cannula 6 07/30/22 08:52 07/30/22 08:52 07/30/22 08:52 07/30/22 08:52 07/30/22 08:52 07/30/22 08:52 07/30/22 07:00 Oxygen Flow Rate (L/min) 6 Oxygen Delivery Method Nasal Cannula Weight: 250 lb 10.649 oz Body Mass Index (BMI) 35.9 Intake & Output: Intake and Output for Last 24 Hours 07/29/22 07/29/22 07/30/22 00:59 23:59 23:59 Intake Total 498.90 / 498.90 Output Total Balance 498.90 / 498.90 Lab / Micro Data Result Diagrams: 07/30/22 05:15 07/30/22 05:15 Labs: Laboratory Results - last 24 hr 07/30/22 05:15: WBC 5.3, RBC 2.35 L, Hgb 7.4 L, Hct 23.5 L, MCV 100.0 H, MCH 31.5, MCHC 31.5 L, RDW Std Deviation 61.4 H, RDW Coeff of Dominique 16.9 H, Plt Count 104 L, MPV 11.2, Neut % (Auto) Not Reportable, Absolute Neuts (auto) 5.1, Absolute Lymphs (auto) 0.10 L, Total Counted 100, Neutrophils % (Manual) 88 H, Band Neutrophils % 8 H, Lymphocytes % (Manual) 2 L, Monocytes % (Manual) 1, Metamyelocytes % 1, Nucleated RBCs/100 WBC 1, Diff Path Review May foll, Platelet Estimate MOD DEC, Hypochromasia 1+, Anisocytosis 2+ 07/30/22 05:15: Sodium 135 L, Potassium 5.1, Chloride 99, Carbon Dioxide 22.0, Anion Gap 14, BUN 89 H, Creatinine 11.40 H*, Estim Creat Clear Calc 6.49, Est GFR (MDRD) Af Amer 6 L, Est GFR (MDRD) Non-Af 5 L, BUN/Creatinine Ratio 7.8 L, Glucose 163 H, Calcium 8.5 07/30/22 07:08: POC Glucose 162 H 07/30/22 08:10: PT 29.3 H, INR 2.8, APTT 50.9 H Micro: Microbiology 07/23/22 10:50 Stool Stool Occult Blood (FILI) - Final Occult Blood Positive 07/23/22 10:10 Nasal Secretion SARS-CoV-2 & FLU Antigen (Rapid) - Final ABG Data ABG results: ABG 07/29/22 20:48 Specimen Type ART Sample Site L Radial pH 7.30 L Bicarbonate Actual 24.0 Total CO2 26 Base Excess -3 L O2 Saturation 91 L ABG pCO2 49.4 H ABG pO2 69 L Kraig Test Positive O2 Delivery Device Cannula Liter Flow 4.0 Physical Exam Const no apparent distress Constitutional Narrative: Opens eyes to voice, but not readily interacting. Diaphoretic. General Appearance: lethargic Nutritional Appearance: obese HEENT normocephalic and head/scalp atraumatic Eyes PERRL, EOMs intact bilaterally and conjunctivae normal Neck supple General: trachea midline Chest inspection of chest normal Resp Effort and Inspection: tachypneic Auscultation: diminished lung sounds; Negative for rales, rhonchi or wheezes Cardio regular rate, S1 normal heart sound, S2 normal heart sound, no rub and no gallops Rate: tachycardic Heart Sounds: murmur GI normal to inspection, nondistended, normoactive bowel sounds Extremity no clubbing, cyanosis or edema Skin no rashes or lesions noted Neuro CN's II-XII intact bilaterally and no focal motor deficits Psych Mood & Affect: flat affect Assessment & Plan Assessment/Plan (1) Anemia: PLAN: He received 1 unit of packed red blood cells and his hemoglobin fell back down to 7.[address] scan abdomen pelvis did not show massive small bowel resection as thought by the patient. It did show Billroth I that was previously seen on his upper endoscopy. Also with could be contributing to his anemia is the large stone in his urinary system causing hydronephrosis and possible sepsis. He will undergo dialysis today and attempted placement of a percutaneous tube to drain the left left kidney. If he does okay with that was procedures we may repeat his upper endoscopy as I do not think he can tolerate a prep at this time. Charges/Coding Visit Charges Inpatient E&M: 53729 Subs Hosp L2
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
--- NOTE | 2022-07-30 12:05 | DIALYSIS ---
Hemodialysis complete via right forearm AV fistula with 2 liters fluid removed. BP soft and crit line showed profile C when attempting to remove more fluid. Stasis obtained after needles removed from fistula. Pt tolerated treatment without difficulty.
--- NOTE | 2022-07-30 12:11 | CHAPLAIN ---
Type of Pastoral Visit _x__ Initial Visit ___ Follow-up Visit ___ On-call Visit ___ General Patient Visit ___ Spiritual Assessment ___ Family Conference ___ Bereavement ___ Rapid Response ___ Code Blue ___ Other (describe below) Pastoral Care Referral From _x__ Patient ___ Family ___ Nurse ___ Physician ___ Teacher Physically Impaired ___ Division Merchandise Manager ___ Other (describe below) Sacrament/Intervention ___ Active listening ___ Anointing ___ Religious ___ Bereavement ___ Communion ___ Sadie exploration ___ ___ Life review ___ Prayer ___ Reconciliation ___ Sacrament of Sick _x__ Supportive presence ___ Wedding ___ Other (describe below) Pastoral Comments patient is receiving dialysis and near completion; pt to have a procedure soon; pt does not respond to questions but has eyes open; talked calmly and supportively to patient; touched pt hand to affirm presence and support; spoke of keeping pt in prayer and that many people are working for his benefit and better health; no family is present
--- NOTE | 2022-07-30 12:26 | PCM.RX.CS ---
Consult Pharmacy has been consulted to manage selected antiobiotic: Vancomycin Type of Consult: New start Labs: Sodium 135 mmol/L (136-145) L 07/30/22 05:15 Potassium 5.1 mmol/L (3.5-5.1) 07/30/22 05:15 Chloride 99 mmol/L (98-107) 07/30/22 05:15 Carbon Dioxide 22.0 mmol/L (21.0-32.0) 07/30/22 05:15 Anion Gap 14 (5-15) 07/30/22 05:15 BUN 89 mg/dL (7-18) H 07/30/22 05:15 Creatinine 11.40 mg/dL (0.70-1.30) H* 07/30/22 05:15 Est GFR (MDRD) Af Amer 6 mL/min (>60) L 07/30/22 05:15 Est GFR (MDRD) Non-Af 5 mL/min (>60) L 07/30/22 05:15 BUN/Creatinine Ratio 7.8 RATIO (10-20) L 07/30/22 05:15 Glucose 163 mg/dL (74-106) H 07/30/22 05:15 Microbiology: Microbiology 07/23/22 10:50 Stool Stool Occult Blood (FILI) - Final Occult Blood Positive 07/23/22 10:10 Nasal Secretion SARS-CoV-2 & FLU Antigen (Rapid) - Final Goal Trough: 15-20 mcg/mL Pharmacy Plan for Drug Dosing: NEW START IV VANCOMYCIN Consulting Physician: Dr. Arthur Lopez Indication: Goal Trough: 15-20 SrCr: 11.4 CrCl: Comments: pt is scheduled Saturday, Saturday, Saturday for dialysis Vancomycin Dose: based on pts weight, recommend an initial dose of 2000mg x1 post dialysis on 07/30/22 and 750mg x1 post dialysis on 08/01/22. Random level prior to dialysis on 08/03/22 Pending Level: random level 08/03/22 at 0600 Pharmacy Service will continue to monitor and adjust dosing as required. Follow-Up Labs: Trough Vancomycin - 08/03/22 at 0600 (random level)
[2022-07-30 12:39] LABS: Pathologist Review Reviewed
[2022-07-30 12:42] LABS: International Normalized Ratio 2.2; Prothrombin Time (Protime)PT. 24.1 SECONDS (11.7-14.9)
--- NOTE | 2022-07-30 15:00 | CT_ITS ---
PROCEDURE: Left percutaneous nephrostomy placement. DATE OF EXAMINATION: 07/30/2022. INDICATION: Male, 67 years old. Left ureteral obstruction due to 1 cm calculus in the proximal portion of the left ureter. PHYSICIAN: Dr. ERIC Garrison RADIATION DOSAGE (If Supplied By Facility): CTDIvol = ( 29.14 ) mGy, DLP = ( 2666.50 ) mGycm CONSENT: The risks, benefits and alternatives to the procedure were explained to the patient''s , and the patient agreed to the procedure and signed the consent. STERILE BARRIER TECHNIQUE: The following sterile barrier precautions were used during the procedure: hand hygiene; use of 2% chlorhexidine aseptic; use of a cap, mask, sterile gown, sterile gloves, sterile full body drape, and a large sterile sheet. PROCEDURE/TECHNIQUE: (All elements of maximal sterile barrier technique followed, including US elements as applicable) The risks, benefits, and alternatives to the procedure were explained to patient, and the patient agreed to the procedure and signed a consent form for the procedure. A timeout was performed to confirm the patient''s identity, the type of procedure, to be performed and the site of entry. The overlying skin was prepped and draped in usual sterile fashion. Local anesthetic application was performed. Under CT guidance, a left-sided 8.2 Ghanaian nephrostomy catheter was placed through the superior calyx of the left kidney. The tip of the catheter is in the proximal portion of the left ureter just proximal to the obstructing stone. Approximately 100 cc of bloody purulent fluid was aspirated. CT/Nephrotube Placement CT IMPRESSION: Successful left percutaneous nephrostomy catheter with drainage. The patient tolerated the procedure well. Electronically Signed: Jairo Ewing MD at 15:28 EST ,
[2022-07-30] MEDS: TITRATION PARAMETER CHANGE 1 EACH IV (15:28)
[2022-07-30] MEDS: 0.9% Saline Lock 10 ML Syringe IV ×2 (15:46→18:21)
--- NOTE | 2022-07-30 16:49 | PCM.OP.PRO ---
Assessment & Plan Assessment/Plan (1) Septic shock: Procedure Report Date of Procedure: 07/30/22 Central Venous Catheter Indication: Hypotension Consent was obtained from: A time-out was completed verifying correct patient, procedure, site, positioning, and special equipment if applicable. The patient was placed in a dependent position appropriate for central line placement based on the vein to be cannulated. The patient's right IJ was prepped and draped in a sterile fashion. 1% lidocaine was used to anesthetize the surrounding skin area. A triple-lumen catheter was introduced into the right IJ using the Seldinger technique and under ultrasound guidance. The catheter was threaded smoothly over the guidewire and appropriate blood return was obtained. Each lumen of the catheter was evacuated of air and flushed with sterile saline. The catheter was then sutured in place to the skin and a sterile dressing applied. Chest x-ray to confirm appropriate positioning is pending. ULTRASOUND GUIDANCE STATEMENT (Vascular Access): I performed ultrasound image acquisition and interpretation for needle placement during the procedure. The vessel was identified and found to be free of thrombosis by compression technique. A safe point of entry was marked at the skin in an angle for axis was determined. The needle was guided by obtaining free-flowing fluid and by real-time visualization. Procedures Hospitalists Procedures: 16210 Insert Non-tunnel CV Cath
--- NOTE | 2022-07-30 16:50 | RAD_ITS ---
STUDY: X-RAY CHEST REASON FOR EXAM: Male, 67 years old. rij tl placement TECHNIQUE: XR Chest 1 View COMPARISON: 07.23.22 FINDINGS: There is atherosclerotic calcification of the aortic arch with tortuosity. There are diffuse degenerative changes of the visualized thoracic spine. There is degenerative osteoarthritis of the bilateral shoulders. There are bilateral pleural effusions. There are bilateral infiltrates. There is a left sided pacemaker batterypack. There are multiple median sternotomy wires. Prosthetic heart valve. Right IJ line.. No pneumothorax Normal size heart. Normal mediastinum and arleen. Normal visualized pulmonary arteries. There is no demonstrated abnormality of the visualized soft tissue structures of the upper abdomen. RAD/CXR for Line Placement IMPRESSION: Pulmonary findings appear worse. Electronically Signed: Emmanuel Clay MD at 17:01 EST ,
--- NOTE | 2022-07-30 16:50 | NURSING ---
1625 Dr. Lopez present in pt room speaking w/. consent for TL given. 1633 HR 94 R 27 BP 86/63 SpO2 94% insertion begun 1635 HR 95 R 26 BP 82/56 SpO2 93 wire inserted, SR 1640 HR 95 R 25 BP 81/58 SpO2 93% RIJ TL placed, drsg applied 1645 Cxr completed,OK for use per Dr. Lopez.
[2022-07-30 17:05] LABS: Allen Test Positive; Base Excess -3 mmol/L (-2 to +2); Bicarbonate 23.4 mmol/L (22-26); Blood Gas Specimen Type ART; FI02 55; O2 Delivery Device HFNC; PO2 81 mmHG (75-100); SITE L Brach; SO2 94 % (95-99); Total Carbon Dioxide 25 mmol/L; pCO2 49.7 mmHg (35-45); pH 7.28 (7.35-7.45)
[2022-07-30] MEDS: Lidocaine 2% (20 ml mdv) 20 ML Vial INFILT (18:28)
--- NOTE | 2022-07-30 19:18 | CT_ITS ---
EXAM: CT HEAD WITHOUT INTRAVENOUS CONTRAST CLINICAL INDICATION: respiratory arrest TECHNIQUE: Multiple axial images were obtained of the head without intravenous contrast. This CT exam was performed using one or more of the following dose reduction techniques: automated exposure control, adjustment of the mA and/or kV according to patient size, and/or use of iterative reconstruction technique. This report was created using gate5 report generation technology. COMPARISON: 07/28/2022 FINDINGS: BRAIN AND EXTRA-AXIAL SPACES: A small area of hypodensity seen within the superior right cerebellum which may represent an area of early ischemia. There is also minimal hypodensity in the left occipital lobe. No intra- or extra-axial hemorrhage. No intracranial mass or mass effect. Ventricles are appropriate for age. No hydrocephalus. Basal cisterns are patent. BONES/JOINTS: Unremarkable. No discrete lytic or blastic abnormalities. SINUSES: Unremarkable as visualized. Clear. MASTOID AIR CELLS: Unremarkable. Clear. ORBITS: Visualized globes, extraocular muscles, optic nerves and retrobulbar fat appear unremarkable. CT/Brain/Head without Contrast IMPRESSION: Hypodensity in the superior right cerebellum and left occipital lobe which may represent areas of early ischemia. No hemorrhage is identified. If indicated further evaluation with MRI may be beneficial. Electronically Signed: Andrea Harry MD at 21:12 EST ,
--- NOTE | 2022-07-30 19:25 | RAD_ITS ---
STUDY: X-RAY CHEST REASON FOR EXAM: Male, 67 years old. tube placement -- portable TECHNIQUE: XR Chest 1 View COMPARISON: Study done earlier today. FINDINGS: There is atherosclerotic calcification of the aortic arch with tortuosity. There are diffuse degenerative changes of the visualized thoracic spine. There is degenerative osteoarthritis of the bilateral shoulders. There are bilateral pleural effusions. There are bilateral infiltrates. There is a left sided pacemaker batterypack. There are multiple median sternotomy wires. Prosthetic heart valve. Right IJ line.. No pneumothorax There is an NGT and ET tube in place. Normal size heart. Normal mediastinum and arleen. Normal visualized pulmonary arteries. There is no demonstrated abnormality of the visualized soft tissue structures of the upper abdomen. RAD/Chest 1 View (Portable) IMPRESSION: Pulmonary findings appear improved. Electronically Signed: Emmanuel Clay MD at 19:57 EST ,
--- NOTE | 2022-07-30 19:54 | NURSING ---
LABOR RELATIONS MANAGER called for agonal breathing, pt obtunded. Intubated w/ 7.5 ETT, 24 @ lip. Positive color change and BL breath sounds. OG placed.
[2022-07-30 22:25] LABS: Base Excess -6 mmol/L (-2 to +2); Bicarbonate 19.9 mmol/L (22-26); Blood Gas Specimen Type ART; FI02 60; Mode AC; O2 Delivery Device Adult Vent; PEEP 5; PO2 112 mmHG (75-100); RR 14; SITE L Radial; SO2 98 % (95-99); Total Carbon Dioxide 21 mmol/L; Vt 450; pCO2 36.6 mmHg (35-45); pH 7.34 (7.35-7.45)
[2022-07-30] MEDS: Menthol/Lanolin/Calamine/Znox 113 GM Tube 1 APPLIC TOPICAL (23:57)
[2022-07-31] VITALS (36 sets, daily range): BP systolic 74–117; BP diastolic 46–69; PULSE 87–128; RESP 14–27; TEMP 36.1–37.6; O2SAT 40–100
--- NOTE | 2022-07-31 01:06 | NURSING ---
Pt intubated at 1916. Soft restraints placed to left and right wrist to maintain patient safety. Family notified and educated on the use of non-violent restraints. Circulation checks and range of motion performed per protocol. MD present upon application of restraints.
[2022-07-31] MEDS: CHLORHEXIDINE GLUC 2% CLOTH 1 EACH TOWELETTE TOPICAL (03:30)
[2022-07-31 04:32] LABS: Hemoglobin 7.8 g/dL (13.0-16.5); Mean Corp Hgb Conc 31.2 g/dL (32-36); Mean Corpuscular Hgb 31.2 pg (27.0-32.0); Mean Platelet Vol. 13.1 fl (6.2-12.0); POSITIVE COUNT YES; POSITIVE DIFFERENTIAL YES; POSITIVE MORPHOLOGY YES; Platelet Count 76 K/mm3 (150-450); RBC Distribution Width CV 16.5 % (11.6-14.6); RBC Distribution Width SD 60.3 fl (35.1-43.9); White Blood Count 10.5 K/mm3 (4.4-11.0)
[2022-07-31 04:35] LABS: Differential Indicated MANUAL DIFF
[2022-07-31 04:59] LABS: Anion Gap 19 (5-15); BUN 89 mg/dL (7-18); BUN/Creat Ratio 8.1 RATIO (10-20); Calcium,Total 8.6 mg/dL (8.5-10.1); Chloride 97 mmol/L (98-107); EST Glomerular Filtration Rate 5 mL/min (>60); Est Glom Filt Rate - Afr Amer 6 mL/min (>60); Estimated Creatinine Clearance 6.73 ml/min; Glucose 155 mg/dL (74-106); Potassium 5.1 mmol/L (3.5-5.1); Sodium Level 136 mmol/L (136-145)
[2022-07-31 05:17] LABS: Neutrophil-Segmented 66 % (47-70); Total Cells Counted 100 (MANUAL DIFF)
[2022-07-31 05:18] LABS: Lymphocyte 6 % (19-41); Metamyelocyte 2 % (0-1); Monocyte 7 % (0-10); Neutrophil-Band 19 % (0-5); Platelet Estimate MOD DEC (ADEQ)
[2022-07-31 05:19] LABS: Anisocytosis 1+; Hypochromasia 1+; Macrocytosis RARE; Microcytosis RARE; Neutrophil # 8.95 X10^3/uL (2.7-7.7); Polychromasia RARE
[2022-07-31 05:20] LABS: Absolute Lymphocyte Count 0.63 X10^3/uL (0.83-4.51); Lymphocyte # 0.63 X10^3/ul (0.83-4.51)
--- NOTE | 2022-07-31 07:27 | PCM.CONS.B ---
Consult Date of Consult: 07/31/22 Reason for Consult Status post placement of a left nephrostomy tube with drainage of purulent urine from the kidney he has a very large stone in the proximal ureter causing chronic obstruction leave the nephrostomy tube in place once his sepsis is resolved and he is clinically improved then we can consider doing a percutaneous removal of the stone.
--- NOTE | 2022-07-31 07:40 | PCM.PN.INT ---
Assessment & Plan Assessment/Plan (1) Septic shock: PLAN: Plan RECOMMENDATIONS: 1. Wean supplemental oxygen as tolerated to maintain saturations at or above 90%. 2. Continue to monitor H&H. Transfuse if hemoglobin drops below 7 g/dL. 3. Continue PPI therapy and octreotide per gastroenterology recommendations. 4. Check INR. Possible need for heparin drip. Would not recommend bolus 5. Continue empiric antibiotics pending culture results from nephrostomy tube 6. Discussed with family about goals of therapy 7. Spontaneous breathing and awakening trials per protocol IMPRESSIONS: 1. Acute blood loss anemia Appear to be secondary to angiodysplasias, which were medically managed by gastroenterology. They were treated endoscopically. H&H appears to be relatively stable. Plan to continue current supportive measures including PPI therapy and octreotide infusion. Continue to monitor H&H daily and transfuse if hemoglobin drops below 7 g/dL. GI planning additional work-up when patient is more hemodynamically stable. 2. Septic shock secondary to UTI with left hydronephrosis secondary to renal colliculi Hypotension appears to be a chronic condition for the patient, as he is scheduled to receive midodrine with dialysis. The patient did receive additional supplemental IV fluids and transfusion of blood products with stabilization in his hemodynamics. Patient was significant decline following nephrostomy tube. Cultures are currently pending. Patient on broad-spectrum antibiotics. 3. End-stage renal disease on hemodialysis Continue supportive measures per nephrology recommendations. 4. History of mitral valve replacement/paroxysmal atrial fibrillation/hypothyroidism Complicates care, management, recovery and prognosis. Given mechanical heart valve, may need to initiate heparin drip if INR normalized. Continue baseline medications including midodrine as scheduled. TIME: 35 minutes critical care time spent addressing patient septic shock, acute blood loss anemia, ESRD, review of all data and collaboration with care team Subjective Subjective Patient was able to tolerate hemodialysis with 2 L removed. Rapid response called at approximately 7 PM last evening secondary to agonal breathing. Patient was subsequently intubated. No significant change in hemodynamics overnight, but a CT of the head was suggestive of a possible cerebellar infarct. Patient was intubated without medications. Patient's pressor demands have increased overnight. No active GI bleeding was appreciated. Objective Data Objective Data Vital Signs: Vital Signs Temp Pulse Resp BP Pulse Ox O2 Del Method O2 Flow Rate 36.3 C L 95 22 H 103/59 L 95 Mechanical Ventilator 60 07/31/22 04:00 07/31/22 07:00 07/31/22 07:00 07/31/22 07:00 07/31/22 07:00 07/31/22 07:00 07/30/22 19:00 FiO2 40 07/31/22 07:00 Oxygen Flow Rate (L/min) 60 Oxygen Delivery Method Mechanical Ventilator Weight: 109.4 kg Body Mass Index (BMI) 35.9 Intake & Output: Intake and Output for Last 24 Hours 07/29/22 07/30/22 07/31/22 23:59 23:59 23:59 Intake Total 1782.01 / 1812.61 422.30 / 422.30 Output Total 1999 0 / 0 Balance -217.99 / -187.39 422.30 / 422.30 Lab / Micro Data Attestation: I reviewed the patient's lab results. Result Diagrams: 07/31/22 04:00 07/31/22 04:00 Labs: Laboratory Results - last 24 hr 07/30/22 05:15: Diff Path Review Reviewed 07/30/22 08:10: PT 29.3 H, INR 2.8, APTT 50.9 H 07/30/22 12:25: PT 24.1 H, INR 2.2 07/31/22 04:00: WBC 10.5, RBC 2.50 L, Hgb 7.8 L, Hct 25.0 L, MCV 100.0 H, MCH 31.2, MCHC 31.2 L, RDW Std Deviation 60.3 H, RDW Coeff of Dominique 16.5 H, Plt Count 76 L, MPV 13.1 H, Neut % (Auto) Not Reportable, Absolute Neuts (auto) 9.0 H, Absolute Lymphs (auto) 0.63 L, Total Counted 100, Neutrophils % (Manual) 66, Band Neutrophils % 19 H, Lymphocytes % (Manual) 6 L, Monocytes % (Manual) 7, Metamyelocytes % 2 H, Diff Path Review May foll, Platelet Estimate MOD DEC, Polychromasia RARE, Hypochromasia 1+, Anisocytosis 1+, Microcytosis RARE, Macrocytosis RARE 07/31/22 04:00: Sodium 136, Potassium 5.1, Chloride 97 L, Carbon Dioxide 20.0 L, Anion Gap 19 H, BUN 89 H, Creatinine 11.00 H*, Estim Creat Clear Calc 6.73, Est GFR (MDRD) Af Amer 6 L, Est GFR (MDRD) Non-Af 5 L, BUN/Creatinine Ratio 8.1 L, Glucose 155 H, Calcium 8.6 Micro: Microbiology 07/30/22 13:00 Sputum, Induced/Lukens Gram Stain - Final 07/23/22 10:50 Stool Stool Occult Blood (FILI) - Final Occult Blood Positive 07/23/22 10:10 Nasal Secretion SARS-CoV-2 & FLU Antigen (Rapid) - Final ABG Data ABG results: ABG 07/30/22 07/30/22 16:59 22:20 Specimen Type ART ART Sample Site L Brach L Radial pH 7.28 L 7.34 L Bicarbonate Actual 23.4 19.9 L Total CO2 25 21 Base Excess -3 L -6 L O2 Saturation 94 L 98 O2 % 55 60 ABG pCO2 49.7 H 36.6 ABG pO2 81 112 H Kraig Test Positive N/A Respiration Rate 14 O2 Delivery Device HFNC Adult Vent Vent Mode AC Tidal Volume 450 POC PEEP 5 Attestation: I personally reviewed and interpreted this ABG as follows: (Improving acute hypercarbic respiratory failure with increased AA gradient) Radiography Diagnostic Testing: Radiology Impression Nephrostomy Tube Change 07/30/22 15:00 IMPRESSION: Successful left percutaneous nephrostomy catheter with drainage. The patient tolerated the procedure well. Electronically Signed: Jairo Ewing MD at 15:28 EST , Chest X-Ray 07/30/22 16:50 IMPRESSION: Pulmonary findings appear worse. Electronically Signed: Emmanuel Clay MD at 17:01 EST , Brain CT 07/30/22 19:18 IMPRESSION: Hypodensity in the superior right cerebellum and left occipital lobe which may represent areas of early ischemia. No hemorrhage is identified. If indicated further evaluation with MRI may be beneficial. Electronically Signed: Andrea D. Breckwoldt, MD at 21:12 EST , Chest X-Ray 07/30/22 19:25 IMPRESSION: Pulmonary findings appear improved. Electronically Signed: Emmanuel Clay MD at 19:57 EST , Physical Exam Const no apparent distress Constitutional Narrative: Good vent synchrony General Appearance: patient mechanically ventilated HEENT normocephalic and head/scalp atraumatic Eyes PERRL Eyes Narrative: Eyes open. Reacts to confrontation. Little spontaneous looking around the room Sclera: sclera abnormal Positive for bilateral Details: scleral injection Neck full ROM and supple Neck Narrative: Right IJ with slight oozing. General: CVC in place Chest inspection of chest normal Resp normal respiratory effort Auscultation: Negative for rales, rhonchi or wheezes Cardio regular rate, regular rhythm, S1 normal heart sound, S2 normal heart sound, no rub and no gallops Heart Sounds: murmur GI normal to inspection, nondistended, normoactive bowel sounds Narrative: Nephrostomy with bloody output Extremity no clubbing, cyanosis or edema Skin no rashes or lesions noted Neuro no focal motor deficits Sensorium / Orientation: sedated on vent Psych Mood & Affect: flat affect Charges/Coding Procedures Hospitalists Procedures: 35272 Critial Care 1st Hr
[2022-07-31] MEDS: Menthol/Lanolin/Calamine/Znox 113 GM Tube 1 APPLIC TOPICAL ×2 (08:22→21:12)
[2022-07-31] MEDS: Chlorhexidine 15 ML PO ×2 (08:22→21:14)
[2022-07-31] MEDS: Folic Acid/Vitamin B Comp W-C 1 Capsule 1 CAP PO (08:24)
[2022-07-31] MEDS: Ferrous Sulfate 325 MG Tablet PO (08:24)
[2022-07-31] MEDS: Allopurinol 100 MG Tablet PO (08:24)
[2022-07-31] MEDS: SEVELAMER CARBONATE 800 MG TABLET PO (08:24)
[2022-07-31 08:57] LABS: International Normalized Ratio 1.6; Prothrombin Time (Protime)PT. 18.5 SECONDS (11.7-14.9)
[2022-07-31 08:58] LABS: Partial Thromboplast Time 42.9 Seconds (24.1-36.2)
[2022-07-31] MEDS: HEPARIN/D5w 25,000 UNITS 25,000 UNITS/250 ML IV.SOLN. 15 UNITS CONT INF (10:52)
[2022-07-31] MEDS: Carboxymethylcellulose sodium gel dropperette 2 EACH EACH EYE ×4 (10:54→21:14)
[2022-07-31] MEDS: Sertraline 50 MG Tablet PO (10:56)
[2022-07-31] MEDS: NEPRO TUBE FEED 1,000 ML 20 ML GT (12:38)
--- NOTE | 2022-07-31 13:00 | PCM.PN.REN ---
Subjective Subjective events noted, currently intubated. low dose levophed. urology note reviewed. octreotide drip for GI bleed Objective Data Objective Data Vital Signs: Vital Signs Temp Pulse Resp BP Pulse Ox O2 Del Method O2 Flow Rate 99 F 95 20 H 92/55 L 99 Mechanical Ventilator 60 07/31/22 12:00 07/31/22 12:00 07/31/22 12:00 07/31/22 12:00 07/31/22 12:00 07/31/22 12:00 07/30/22 19:00 FiO2 40 07/31/22 12:00 Oxygen Flow Rate (L/min) 60 Oxygen Delivery Method Mechanical Ventilator Weight: 109.4 kg Body Mass Index (BMI) 35.9 Intake & Output: Intake and Output for Last 24 Hours 07/29/22 07/30/22 07/31/22 23:59 23:59 23:59 Intake Total 1782.01 / 1812.61 1116.92 / 1116.92 Output Total 1999 350 / 350 Balance -217.99 / -187.39 766.92 / 766.92 Lab / Micro Data Result Diagrams: 07/31/22 04:00 07/31/22 04:00 Labs: Laboratory Results - last 24 hr 07/31/22 04:00: WBC 10.5, RBC 2.50 L, Hgb 7.8 L, Hct 25.0 L, MCV 100.0 H, MCH 31.2, MCHC 31.2 L, RDW Std Deviation 60.3 H, RDW Coeff of Dominique 16.5 H, Plt Count 76 L, MPV 13.1 H, Neut % (Auto) Not Reportable, Absolute Neuts (auto) 9.0 H, Absolute Lymphs (auto) 0.63 L, Total Counted 100, Neutrophils % (Manual) 66, Band Neutrophils % 19 H, Lymphocytes % (Manual) 6 L, Monocytes % (Manual) 7, Metamyelocytes % 2 H, Diff Path Review May foll, Platelet Estimate MOD DEC, Polychromasia RARE, Hypochromasia 1+, Anisocytosis 1+, Microcytosis RARE, Macrocytosis RARE 07/31/22 04:00: Sodium 136, Potassium 5.1, Chloride 97 L, Carbon Dioxide 20.0 L, Anion Gap 19 H, BUN 89 H, Creatinine 11.00 H*, Estim Creat Clear Calc 6.73, Est GFR (MDRD) Af Amer 6 L, Est GFR (MDRD) Non-Af 5 L, BUN/Creatinine Ratio 8.1 L, Glucose 155 H, Calcium 8.6 07/31/22 07:55: PT 18.5 H, INR 1.6, APTT 42.9 H Micro: Microbiology 07/30/22 15:00 Other - Nephrostomy tube Miscellaneous Culture - Preliminary Staphylococcus aureus 07/30/22 15:00 Other - Nephrostomy tube Gram Stain - Final 07/30/22 13:00 Sputum, Induced/Lukens Gram Stain - Final 07/30/22 13:00 Sputum, Induced/Lukens Respiratory Culture - Preliminary Appears to be normal respiratory andres. Further studies to follow. 07/23/22 10:50 Stool Stool Occult Blood (FILI) - Final Occult Blood Positive 07/23/22 10:10 Nasal Secretion SARS-CoV-2 & FLU Antigen (Rapid) - Final ABG Data ABG results: ABG 07/30/22 07/30/22 16:59 22:20 Specimen Type ART ART Sample Site L Brach L Radial pH 7.28 L 7.34 L Bicarbonate Actual 23.4 19.9 L Total CO2 25 21 Base Excess -3 L -6 L O2 Saturation 94 L 98 O2 % 55 60 ABG pCO2 49.7 H 36.6 ABG pO2 81 112 H Kraig Test Positive N/A Respiration Rate 14 O2 Delivery Device HFNC Adult Vent Vent Mode AC Tidal Volume 450 POC PEEP 5 Radiography Diagnostic Testing: Radiology Impression Nephrostomy Tube Change 07/30/22 15:00 IMPRESSION: Successful left percutaneous nephrostomy catheter with drainage. The patient tolerated the procedure well. Electronically Signed: Jairo Ewing MD at 15:28 EST , Chest X-Ray 07/30/22 16:50 IMPRESSION: Pulmonary findings appear worse. Electronically Signed: Emmanuel Clay MD at 17:01 EST , Brain CT 07/30/22 19:18 IMPRESSION: Hypodensity in the superior right cerebellum and left occipital lobe which may represent areas of early ischemia. No hemorrhage is identified. If indicated further evaluation with MRI may be beneficial. Electronically Signed: Andrea Harry MD at 21:12 EST , Chest X-Ray 07/30/22 19:25 IMPRESSION: Pulmonary findings appear improved. Electronically Signed: Emmanuel Clay MD at 19:57 EST , Physical Exam Narrative Alert awake oriented x 3 no obvious distress s1s2 no murmurs lungs clear, no wheezes, rhonchi or rales abdomen soft, nontender no edema AV fistula right forearm positive thrill and bruit Assessment & Plan Assessment/Plan (1) ESRD on hemodialysis: PLAN: ESRD on dialysis Saturday, Saturday, Saturday schedule. last HD yesterday continue as per schedule (2) Acute hyperkalemia: PLAN: better (3) Anemia: PLAN: EGD showed esophagitis, bleeding lesions in stomach treated with cautery. S/p PRBC.
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
[2022-07-31 13:40] LABS: Pathologist Review Reviewed
[2022-07-31 16:59] LABS: Partial Thromboplast Time 49.5 Seconds (24.1-36.2)
[2022-07-31] MEDS: Heparin Injection (Vial) 5,000 UNIT/ML VIAL IV (17:47)
[2022-08-01] VITALS (40 sets, daily range): BP systolic 79–112; BP diastolic 49–67; PULSE 71–118; RESP 14–26; TEMP 36.6–37.7; O2SAT 94–100
[2022-08-01 00:10] LABS: Partial Thromboplast Time 68.8 Seconds (24.1-36.2)
[2022-08-01] MEDS: HEPARIN/D5w 25,000 UNITS 25,000 UNITS/250 ML IV.SOLN. 16 UNITS CONT INF (02:56)
[2022-08-01 04:02] LABS: Hematocrit 23.2 % (40-54); Hemoglobin 7.3 g/dL (13.0-16.5); Mean Corp Hgb Conc 31.5 g/dL (32-36); Mean Corpuscular Hgb 30.8 pg (27.0-32.0); Mean Corpuscular Volume 97.9 fL (80-94); Mean Platelet Vol. 13.2 fl (6.2-12.0); POSITIVE COUNT YES; POSITIVE DIFFERENTIAL YES; POSITIVE MORPHOLOGY YES; Platelet Count 71 K/mm3 (150-450); RBC Distribution Width CV 15.8 % (11.6-14.6); RBC Distribution Width SD 55.7 fl (35.1-43.9); Red Blood Count 2.37 M/mm3 (4.6-6.2); White Blood Count 12.1 K/mm3 (4.4-11.0)
[2022-08-01 04:03] LABS: Differential Indicated SCAN CRITERIA MET
[2022-08-01 04:37] LABS: Anisocytosis 1+; Differential Comment SCANNED; Hypochromasia 1+; Macrocytosis RARE; Microcytosis RARE
[2022-08-01 04:41] LABS: Neutrophil-Segmented 74 % (47-70); Scan Smear per Review Criteria MANUAL DIFF; Total Cells Counted 100 (MANUAL DIFF)
[2022-08-01 04:42] LABS: Blast 1 % (0-0); Metamyelocyte 1 % (0-1); Neutrophil-Band 1 % (0-5)
[2022-08-01 04:43] LABS: Lymphocyte 14 % (19-41); Monocyte 9 % (0-10); NRBC Flagged by Analyzer 2.3 % (0-5); Nucleated Red Bld Cells,Manual 2 % (0-5); Platelet Estimate MOD DEC (ADEQ)
[2022-08-01 04:44] LABS: Absolute Lymphocyte Count 1.69 X10^3/uL (0.83-4.51); Absolute Neutrophil Count 9.1 X10^3/uL (2.0-7.7); Lymphocyte # 1.69 X10^3/ul (0.83-4.51); Neutrophil # 9.05 X10^3/uL (2.7-7.7)
[2022-08-01 04:45] LABS: Anion Gap 18 (5-15); BUN 117 mg/dL (7-18); BUN/Creat Ratio 9.3 RATIO (10-20); Chloride 98 mmol/L (98-107); EST Glomerular Filtration Rate 4 mL/min (>60); Est Glom Filt Rate - Afr Amer 5 mL/min (>60); Estimated Creatinine Clearance 5.87 ml/min; Glucose 209 mg/dL (74-106); Potassium 5.8 mmol/L (3.5-5.1); Sodium Level 135 mmol/L (136-145)
[2022-08-01] MEDS: Levothyroxine 150 MCG Tablet 300 MCG GT (05:27)
[2022-08-01] MEDS: TITRATION PARAMETER CHANGE 1 EACH IV (06:24)
[2022-08-01 06:40] LABS: Partial Thromboplast Time 80.5 Seconds (24.1-36.2)
--- NOTE | 2022-08-01 07:58 | PN.CC_ITS ---
Assessment & Plan Assessment/Plan (1) Septic shock: PLAN: Plan RECOMMENDATIONS: 1. Wean supplemental oxygen as tolerated to maintain saturations at or above 90%. 2. Continue to monitor H&H. Transfuse if hemoglobin drops below 7 g/dL. 3. Continue PPI therapy and octreotide per gastroenterology recommendations. 4. Check INR. Possible need for heparin drip. Would not recommend bolus 5. Discontinue vancomycin. Consider transition from Zosyn to cephalexin 6. Discussed with family about goals of therapy 7. Spontaneous breathing and awakening trials per protocol 8. Await response to hemodialysis IMPRESSIONS: 1. Acute blood loss anemia Appear to be secondary to angiodysplasias, which were medically managed by gastroenterology. They were treated endoscopically. H&H appears to be slowly decreasing after initiation of heparin drip. Plan to continue current supportive measures including PPI therapy and octreotide infusion. Continue to monitor H&H daily and transfuse if hemoglobin drops below 7 g/dL. GI planning additional work-up when patient is more hemodynamically stable. 2. 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 The patient did receive additional supplemental IV fluids and transfusion of blood products with stabilization in his hemodynamics. Patient was significant decline following nephrostomy tube. Cultures are showing MSSA. Vancomycin will be discontinued. Could consider transition to narrower beta-lactam 3. End-stage renal disease on hemodialysis Continue supportive measures per nephrology recommendations. Unfortunately, CVVH is not an option at this time [facility]. We will attempt dialysis, but there is a significant chance the patient will not tolerate. 4. History of mitral valve replacement/paroxysmal atrial fibrillation/hypothyroidism Complicates care, management, recovery and prognosis. Given mechanical heart valve, patient initiated on heparin drip because INR normalized. TIME: 45 minutes critical care time spent addressing patient septic shock, acute blood loss anemia, ESRD, review of all data and collaboration with care team Subjective Subjective Patient was some issues overnight. Levophed requirements have significantly worsened compared to yesterday. This morning, patient was noted to have some endotracheal secretions resembling tube feedings. Tube feedings were immediately stopped and chest x-ray is pending. Patient's oxygenation remained stable. Patient is not any more interactive or following commands. Patient continues to respond to noxious stimuli. Objective Data Objective Data Nephrostomy tube with very little output, but does have bloody secretions. Vital Signs: Vital Signs Temp Pulse Resp BP Pulse Ox O2 Del Method O2 Flow Rate 37.7 C H 87 22 H 102/64 95 Mechanical Ventilator 60 08/01/22 04:00 08/01/22 07:22 08/01/22 06:00 08/01/22 06:00 08/01/22 06:00 08/01/22 06:00 07/30/22 19:00 FiO2 40 08/01/22 06:00 Oxygen Flow Rate (L/min) 60 Oxygen Delivery Method Mechanical Ventilator Weight: 109.7 kg Body Mass Index (BMI) 35.9 Intake & Output: Intake and Output for Last 24 Hours 07/30/22 07/31/22 08/01/22 23:59 23:59 23:59 Intake Total 1782.01 / 1812.61 2413.84 / 2465.74 633.36 / 633.36 Output Total 1999 2700 / 2700 0 / 0 Balance -217.99 / -187.39 -286.16 / -234.26 633.36 / 633.36 Lab / Micro Data Attestation: I reviewed the patient's lab results. Result Diagrams: 08/01/22 03:50 08/01/22 04:10 Labs: Laboratory Results - last 24 hr 07/31/22 04:00: Diff Path Review Reviewed 07/31/22 07:55: PT 18.5 H, INR 1.6, APTT 42.9 H 07/31/22 16:40: APTT 49.5 H 07/31/22 23:30: APTT Cancelled 07/31/22 23:45: APTT 68.8 H 08/01/22 03:30: WBC Cancelled, Corrected WBC Cancelled, RBC Cancelled, Hgb Cancelled, Hct Cancelled, MCV Cancelled, MCH Cancelled, MCHC Cancelled, RDW Std Deviation Cancelled, RDW Coeff of Dominique Cancelled, Plt Count Cancelled, MPV Cancelled, Immature Gran % (Auto) Cancelled, Neut % (Auto) Cancelled, Lymph % (Auto) Cancelled, [place] % (Auto) Cancelled, Eos % (Auto) Cancelled, Baso % (Auto) Cancelled, Absolute Neuts (auto) Cancelled, Absolute Lymphs (auto) Cancelled, Total Counted Cancelled, Neutrophils % (Manual) Cancelled, Band Neutrophils % Cancelled, Lymphocytes % (Manual) Cancelled, Monocytes % (Manual) Cancelled, Eosinophils % (Manual) Cancelled, Basophils % (Manual) Cancelled, Metamyelocytes % Cancelled, Myelocytes % Cancelled, Promyelocytes % Cancelled, Blast Cells % Cancelled, Plasma Cell % (Manual) Cancelled, Other Cells % Cancelled, Nucleated RBC % Cancelled, Nucleated RBCs/100 WBC Cancelled, Differential Comment Cancelled, Diff Path Review Cancelled, Hypersegmented Neuts Cancelled, Atypical Lymphocytes Cancelled, Reactive Lymphocytes Cancelled, Smudge Cells Cancelled, Toxic Granulation Cancelled, Toxic Vacuolation Cancelled, Dohle Bodies Cancelled, Ilya Rods Cancelled, Platelet Estimate Cancelled, Plt Morphology Comment Cancelled, RBC Morphology Cancelled, Polychromasia Cancelled, Hypochromasia Cancelled, Poikilocytosis Cancelled, Basophilic Stippling Cancelled, Anisocytosis Cancelled, Microcytosis Cancelled, Macrocytosis Cancelled, Spherocytes Cancelled, Sickle Cells Cancelled, Target Cells Cancelled, Tear Drop Cells Cancelled, Ovalocytes Cancelled, Stomatocytes Cancelled, Harmon-[place] Bodies Cancelled, Luis Armando Cells Cancelled, Bite Cells Cancelled, Crenated Cell Cancelled, Acanthocytes (Spur) Cancelled, Rouleaux Cancelled, Schistocytes Cancelled 08/01/22 03:30: Sodium Cancelled, Potassium Cancelled, Chloride Cancelled, Carbon Dioxide Cancelled, Anion Gap Cancelled, BUN Cancelled, Creatinine Cancelled, Estim Creat Clear Calc Cancelled, Est GFR (MDRD) Af Amer Cancelled, Est GFR (MDRD) Non-Af Cancelled, BUN/Creatinine Ratio Cancelled, Glucose Can celled, Calcium Cancelled 08/01/22 03:50: WBC 12.1 H, RBC 2.37 L, Hgb 7.3 L, Hct 23.2 L, MCV 97.9 H, MCH 30.8, MCHC 31.5 L, RDW Std Deviation 55.7 H, RDW Coeff of Dominique 15.8 H, Plt Count 71 L, MPV 13.2 H, Immature Gran % (Auto) ELECTRICAL HIGH TENSION TESTER, Neut % (Auto) ELECTRICAL HIGH TENSION TESTER, Lymph % (Auto) ELECTRICAL HIGH TENSION TESTER, [place] % (Auto) ELECTRICAL HIGH TENSION TESTER, Eos % (Auto) ELECTRICAL HIGH TENSION TESTER, Baso % (Auto) ELECTRICAL HIGH TENSION TESTER, Absolute Neuts (auto) 9.1 H, Absolute Lymphs (auto) 1.69, Total Counted 100, Neutrophils % (Manual) 74 H, Band Neutrophils % 1, Lymphocytes % (Manual) 14 L, Monocytes % (Manual) 9, Metamyelocytes % 1, Blast Cells % 1 H*, Nucleated RBC % 2.3, Nucleated RBCs/100 WBC 2, Differential Comment SCANNED, Diff Path Review May foll, Platelet E stimate MOD DEC, Hypochromasia 1+, Anisocytosis 1+, Microcytosis RARE, Macrocytosis RARE 08/01/22 04:10: Sodium 135 L, Potassium 5.8 H, Chloride 98, Carbon Dioxide 19.0 L, Anion Gap 18 H, BUN 117 H*, Creatinine 12.60 H*, Estim Creat Clear Calc 5.87, Est GFR (MDRD) Af Amer 5 L, Est GFR (MDRD) Non-Af 4 L, BUN/Creatinine Ratio 9.3 L, Glucose 209 H, Calcium 8.0 L 08/01/22 06:15: APTT 80.5 H Micro: Microbiology 07/30/22 15:00 Other - Nephrostomy tube Miscellaneous Culture - Final Staphylococcus aureus 07/30/22 15:00 Other - Nephrostomy tube Gram Stain - Final 07/30/22 13:00 Sputum, Induced/Lukens Gram Stain - Final 07/30/22 13:00 Sputum, Induced/Lukens Respiratory Culture - Preliminary Appears to be normal respiratory andres. Further studies to follow. 07/23/22 10:50 Stool Stool Occult Blood (FILI) - Final Occult Blood Positive 07/23/22 10:10 Nasal Secretion SARS-CoV-2 & FLU Antigen (Rapid) - Final Radiography Diagnostic Testing: Radiology Impression Echocardiogram 07/30/22 05:55 Interpretation Summary The estimated ejection fraction is 55 %. Unable to assess diastolic dysfunction. The left atrium is moderately enlarged. Echodensity noted in the RV that appears to be the pacemaker wire itself rather than a vegetation associated with it. Correlate clinically. Ordering Physician: Mari Yo Referring Physician: Shekhar Williamson Performed By: Luna Murray, GALLITO, RVT Physical Exam Const Constitutional Narrative: Good vent synchrony General Appearance: cooperative, lethargic and patient mechanically ventilated Nutritional Appearance: obese HEENT normocephalic and head/scalp atraumatic Eyes PERRL, EOMs intact bilaterally and conjunctivae normal Eyes Narrative: Eyes open. Reacts to confrontation. Little spontaneous looking around the room Sclera: sclera abnormal Positive for bilateral Details: scleral injection Neck full ROM and supple Neck Narrative: Right IJ with slight oozing. General: trachea midline and CVC in place Chest inspection of chest normal Resp normal respiratory effort Effort and Inspection: tachypneic Auscultation: diminished lung sounds; Negative for rales, rhonchi or wheezes Cardio regular rate, regular rhythm, S1 normal heart sound, S2 normal heart sound, no rub and no gallops Heart Sounds: murmur GI normal to inspection, nondistended, normoactive bowel sounds Narrative: Nephrostomy with bloody output Extremity no clubbing, cyanosis or edema Skin no rashes or lesions noted Neuro CN's II-XII intact bilaterally and no focal motor deficits Sensorium / Orientation: sedated on vent Psych Mood & Affect: flat affect Charges/Coding Procedures Hospitalists Procedures: [id number] Critial Care 1st Hr
--- NOTE | 2022-08-01 08:00 | RAD_ITS ---
EXAM: XR CHEST, 1 VIEW CLINICAL INDICATION: tube placement TECHNIQUE: Frontal view of the chest. This report was created using [employer] report generation technology. COMPARISON: XR Chest dated 07/30/2022 FINDINGS: LUNGS AND PLEURAL SPACES: Pulmonary venous congestion. Bibasilar pulmonary densities consistent with pneumonia or atelectasis. Small bilateral pleural effusions larger in size on the right than left. No pneumothorax. HEART: Stable mild cardiomegaly. Aortic valve prosthesis remains in place. MEDIASTINUM: No mediastinal or hilar mass. BONES/JOINTS: No acute abnormality. SOFT TISSUES: Normal. TUBES, LINES AND DEVICES: The endotracheal tube (ETT) is in satisfactory position with tip 4 cm above the mikhail. Right internal jugular central venous catheter tip in the proximal superior vena cava. Cardiac pacemaker wires remain in place. Enteric tube tip in the stomach. RAD/Chest 1 View (Portable) IMPRESSION: Mild CHF. Persistent bibasilar pneumonia/atelectasis. Satisfactory intubation. Electronically Signed: Garcia Sidhu MD at 8:23 EST ,
[2022-08-01] MEDS: Chlorhexidine 15 ML PO ×2 (08:08→22:29)
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
--- NOTE | 2022-08-01 12:02 | PCM.PN.REN ---
Subjective Subjective Seen on dialysis today. Objective Data Objective Data Vital Signs: Vital Signs Temp Pulse Resp BP Pulse Ox O2 Del Method O2 Flow Rate 99.9 F H 94 22 H 101/62 96 Mechanical Ventilator 60 08/01/22 04:00 08/01/22 11:16 08/01/22 11:16 08/01/22 10:30 08/01/22 11:16 08/01/22 10:30 07/30/22 19:00 FiO2 40 08/01/22 11:16 Oxygen Flow Rate (L/min) 60 Oxygen Delivery Method Mechanical Ventilator Weight: 109.7 kg Body Mass Index (BMI) 35.9 Intake & Output: Intake and Output for Last 24 Hours 07/30/22 07/31/22 08/01/22 23:59 23:59 23:59 Intake Total 1782.01 / 1812.61 2413.84 / 2465.74 1106.17 / 1106.17 Output Total 1999 / 1999 2700 / 2700 0 / 0 Balance -217.99 / -187.39 -286.16 / -234.26 1106.17 / 1106.17 Lab / Micro Data Result Diagrams: 08/01/22 03:50 08/01/22 04:10 Labs: Laboratory Results - last 24 hr 07/31/22 04:00: Diff Path Review Reviewed 07/31/22 16:40: APTT 49.5 H 07/31/22 23:30: APTT Cancelled 07/31/22 23:45: APTT 68.8 H 08/01/22 03:30: WBC Cancelled, Corrected WBC Cancelled, RBC Cancelled, Hgb Cancelled, Hct Cancelled, MCV Cancelled, MCH Cancelled, MCHC Cancelled, RDW Std Deviation Cancelled, RDW Coeff of Dominique Cancelled, Plt Count Cancelled, MPV Cancelled, Immature Gran % (Auto) Cancelled, Neut % (Auto) Cancelled, Lymph % (Auto) Cancelled, Braxton % (Auto) Cancelled, Eos % (Auto) Cancelled, Baso % (Auto) Cancelled, Absolute Neuts (auto) Cancelled, Absolute Lymphs (auto) Cancelled, Total Counted Cancelled, Neutrophils % (Manual) Cancelled, Band Neutrophils % Cancelled, Lymphocytes % (Manual) Cancelled, Monocytes % (Manual) Cancelled, Eosinophils % (Manual) Cancelled, Basophils % (Manual) Cancelled, Metamyelocytes % Cancelled, Myelocytes % Cancelled, Promyelocytes % Cancelled, Blast Cells % Cancelled, Plasma Cell % (Manual) Cancelled, Other Cells % Cancelled, Nucleated RBC % Cancelled, Nucleated RBCs/100 WBC Cancelled, Differential Comment Cancelled, Diff Path Review Cancelled, Hypersegmented Neuts Cancelled, Atypical Lymphocytes Cancelled, Reactive Lymphocytes Cancelled, Smudge Cells Cancelled, Toxic Granulation Cancelled, Toxic Vacuolation Cancelled, Dohle Bodies Cancelled, Ilya Rods Cancelled, Platelet Estimate Cancelled, Plt Morphology Comment Cancelled, RBC Morphology Cancelled, Polychromasia Cancelled, Hypochromasia Cancelled, Poikilocytosis Cancelled, Basophilic Stippling Cancelled, Anisocytosis Cancelled, Microcytosis Cancelled, Macrocytosis Cancelled, Spherocytes Cancelled, Sickle Cells Cancelled, Target Cells Cancelled, Tear Drop Cells Cancelled, Ovalocytes Cancelled, Stomatocytes Cancelled, Harmon-Wilmerding Bodies Cancelled, [place] Cells Cancelled, Bite Cells Cancelled, Crenated Cell Cancelled, Acanthocytes (Spur) Cancelled, Rouleaux Cancelled, Schistocytes Cancelled 08/01/22 03:30: Sodium Cancelled, Potassium Cancelled, Chloride Cancelled, Carbon Dioxide Cancelled, Anion Gap Cancelled, BUN Cancelled, Creatinine Cancelled, Estim Creat Clear Calc Cancelled, Est GFR (MDRD) Af Amer Cancelled, Est GFR (MDRD) Non-Af Cancelled, BUN/Creatinine Ratio Cancelled, Glucose Cancelled, Calcium Cancelled 08/01/22 03:50: WBC 12.1 H, RBC 2.37 L, Hgb 7.3 L, Hct 23.2 L, MCV 97.9 H, MCH 30.8, MCHC 31.5 L, RDW Std Deviation 55.7 H, RDW Coeff of Dominique 15.8 H, Plt Count 71 L, MPV 13.2 H, Immature Gran % (Auto) CAPACITY PLANNING ENGINEER, Neut % (Auto) CAPACITY PLANNING ENGINEER, Lymph % (Auto) CAPACITY PLANNING ENGINEER, Braxton % (Auto) CAPACITY PLANNING ENGINEER, Eos % (Auto) CAPACITY PLANNING ENGINEER, Baso % (Auto) CAPACITY PLANNING ENGINEER, Absolute Neuts (auto) 9.1 H, Absolute Lymphs (auto) 1.69, Total Counted 100, Neutrophils % (Manual) 74 H, Band Neutrophils % 1, Lymphocytes % (Manual) 14 L, Monocytes % (Manual) 9, Metamyelocytes % 1, Blast Cells % 1 H*, Nucleated RBC % 2.3, Nucleated RBCs/100 WBC 2, Differential Comment SCANNED, Diff Path Review May foll, Platelet Estimate MOD DEC, Hypochromasia 1+, Anisocytosis 1+, Microcytosis RARE, Macrocytosis RARE 08/01/22 04:10: Sodium 135 L, Potassium 5.8 H, Chloride 98, Carbon Dioxide 19.0 L, Anion Gap 18 H, BUN 117 H*, Creatinine 12.60 H*, Estim Creat Clear Calc 5.87, Est GFR (MDRD) Af Amer 5 L, Est GFR (MDRD) Non-Af 4 L, BUN/Creatinine Ratio 9.3 L, Glucose 209 H, Calcium 8.0 L 08/01/22 06:15: APTT 80.5 H Micro: Microbiology 07/30/22 13:00 Sputum, Induced/Lukens Gram Stain - Final 07/30/22 13:00 Sputum, Induced/Lukens Respiratory Culture - Final 07/30/22 15:00 Other - Nephrostomy tube Miscellaneous Culture - Final Staphylococcus aureus 07/30/22 15:00 Other - Nephrostomy tube Gram Stain - Final 07/23/22 10:50 Stool Stool Occult Blood (FILI) - Final Occult Blood Positive 07/23/22 10:10 Nasal Secretion SARS-CoV-2 & FLU Antigen (Rapid) - Final Radiography Diagnostic Testing: Radiology Impression Echocardiogram 07/30/22 05:55 Interpretation Summary The estimated ejection fraction is 55 %. Unable to assess diastolic dysfunction. The left atrium is moderately enlarged. Echodensity noted in the RV that appears to be the pacemaker wire itself rather than a vegetation associated with it. Correlate clinically. Ordering Physician: Mari Yo Referring Physician: Shekhar Williamson Performed By: Trevor, Luna, RDCS, RVT Chest X-Ray 08/01/22 08:00 IMPRESSION: Mild CHF. Persistent bibasilar pneumonia/atelectasis. Satisfactory intubation. Electronically Signed: Garcia Sidhu MD at 8:23 EST , Physical Exam Narrative Alert awake oriented x 3 no obvious distress s1s2 no murmurs lungs clear, no wheezes, rhonchi or rales abdomen soft, nontender no edema AV fistula right forearm positive thrill and bruit Assessment & Plan Assessment/Plan (1) ESRD on hemodialysis: PLAN: ESRD on dialysis Saturday, Saturday, Saturday schedule. Seen on dialysis (2) Acute hyperkalemia: PLAN: better (3) Anemia: PLAN: EGD showed esophagitis, bleeding lesions in stomach treated with cautery. S/p PRBC. PLAN: Plan Remains intubated, higher norepinephrine requirements than yesterday. Hyperkalemia. Tolerating dialysis okay so far. Urology following for suspected pyelonephritis. Discussed with ICU team this morning.
--- NOTE | 2022-08-01 12:16 | DIALYSIS ---
Hemodialysis x 4hrs. Ran pt even no fluid removed. Pt hypotensive throughout tx even with pressors. [place] pulled and stasis of sites achieved. Pt stable Report to HARI Morales
[2022-08-01] MEDS: Carboxymethylcellulose sodium gel dropperette 2 EACH EACH EYE ×3 (12:24→22:30)
[2022-08-01] MEDS: Sertraline 50 MG Tablet GT (12:26)
[2022-08-01] MEDS: Senna/Docusate Sodium 1 Tablet 2 TABLET GT ×2 (12:27→22:32)
[2022-08-01] MEDS: Menthol/Lanolin/Calamine/Znox 113 GM Tube 1 APPLIC TOPICAL ×2 (12:28→22:28)
[2022-08-01] MEDS: Ferrous Sulfate 325 MG Tablet GT (12:29)
[2022-08-01] MEDS: Cefazolin 1 GM/50 ML BAG IV (12:37)
[2022-08-01] MEDS: CHLORHEXIDINE GLUC 2% CLOTH 1 EACH TOWELETTE TOPICAL (12:43)
[2022-08-01] MEDS: HEPARIN/D5w 25,000 UNITS 25,000 UNITS/250 ML IV.SOLN. 14 UNITS CONT INF (18:35)
[2022-08-01] MEDS: 0.9% Saline Lock 10 ML Syringe IV (18:48)
[2022-08-01 19:37] LABS: Partial Thromboplast Time 90.5 Seconds (24.1-36.2)
[2022-08-01] MEDS: LORazepam 2 MG/ML Syringe IV (19:39)
--- NOTE | 2022-08-01 19:51 | CT_ITS ---
We are attempting to reach an attending provider to discuss findings. An addendum with communication details will be sent when the communication is complete. INDICATION: Seizure EXAMINATION: CT BRAIN - CT Head or Brain W/O Contrast Injection TECHNIQUE: Multiple axial images were obtained of the head without intravenous contrast. A radiation dose optimization technique was used for this scan. IV Contrast dosage and agent: None. RADIATION DOSAGE (If Supplied By Facility): CTDIvol = ( 44.99 ) mGy, DLP = ( 829.85 ) mGycm COMPARISON: 07/30/2022 FINDINGS: HEMISPHERES: 1. The cerebral parenchyma, ventricular system and gyral pattern have unchanged configuration. There however has been interval development of significant area of diminished density along the lateral aspect of the LEFT parietal lobe extending into the LEFT occipital lobe consistent with an area of subacute infarct. Subtle changes though much smaller in size are noted on prior exam. 2. There is a subtle area of diminished density projecting along the LEFT precentral gyrus at the vertex consistent with subacute ischemia/infarct.. 3. Subtle area of diminished density along the posterior contour of the RIGHT occipital pole consistent with a area of subacute ischemia. 4. Remaining hemispheric parenchyma has normal configuration. Chronic deep white matter disease is present. 5. There is a trace subarachnoid blood within the RIGHT central sulcus. No intraparenchymal hemorrhage. No intraventricular hemorrhage. CEREBELLUM - BRAINSTEM: The cerebellum, brainstem, basilar and suprasellar cisterns have normal configuration. There however has been maturation areas of previously noted diminished density in both cerebellar hemispheres consistent with subacute nonhemorrhagic ischemia/infarct.. No Chiari malformation. PITUITARY: Infundibulum and pituitary have normal configuration. Midline structures appear normal. CSF SPACES: Appropriate for age. No hydrocephalus. Basal cisterns are patent. VESSELS: 1. No significant vascular calcifications in the cavernous carotid vessels. 2. No hyperdense vascular signs noted.. ORBITS AND PARANASAL SINUSES: 1. Normal appearance of the bony orbits. Normal appearance of the globes and retrobulbar soft tissues.. 2. Paranasal sinuses are clear. 3. ET tube and OG tube are noted extending through the oral cavity. BONY ELEMENTS: Bony elements of the cranial vault, facial skeleton and skull base have normal appearance. SCALP AND SOFT TISSUES: Normal appearance of the soft tissues of the scalp and the visualized face OTHER: None ASPECTS Score for Acute Strokes: 10 CT/Brain/Head without Contrast IMPRESSION: 1. Interval progression of the moderate-sized area of subacute infarct involving the LEFT parietal lobe with extension into the LEFT occipital lobe increase in size the interval without evidence of intraparenchymal hemorrhage. 2. Evolution/maturation of the previous areas of infarct within the cerebellar hemispheres bilaterally. 3. Subtle area of subacute infarct along the LEFT precentral gyrus, as well as along the posterior convexity of the RIGHT occipital pole consistent with subtle areas of infarct. 4. Interval develop subarachnoid hemorrhage along the RIGHT central sulcus. NSC (nonstandard communication) notification was initiated at 9:32 PM SPECIAL INVESTIGATION UNIT INVESTIGATOR Electronically Signed: Yovani Weir MD at 22:34 EST ,
--- NOTE | 2022-08-01 20:02 | PCM.HOSP.N ---
Hospitalist Note Patient with onset seizure activity, subsided with ativan IV x 1. Currently intubated, sedated. Pupils BL pinpoint and nonreactive. Will obtain CT head and load with keppra and maintain on AEDs. Dr. Lopez also notified and agreed.
[2022-08-01] MEDS: levETIRAcetam IV 1,000 MG/100 ML BAG 400 MG IV (21:13)
--- NOTE | 2022-08-01 22:42 | PCM.HOSP.N ---
Hospitalist Note CT head resulted with noted: 1.? Interval progression of the moderate-sized area of subacute infarct involving the LEFT parietal lobe with extension into the LEFT occipital lobe increase in size the interval without evidence of intraparenchymal hemorrhage. 2.? Evolution/maturation of the previous areas of infarct within the cerebellar hemispheres bilaterally. 3.? Subtle area of subacute infarct along the LEFT precentral gyrus, as well as along the posterior convexity of the RIGHT occipital pole consistent with subtle areas of infarct. 4.? Interval develop subarachnoid hemorrhage along the RIGHT central sulcus. Discussed case with Radiology who believes it to be secondary to septic emboli given these findings and likely believe there are likely several other areas that are likely going to develop. Discussed with Dr. Lopez current status and plan to review findings with patient . Patient's current prognosis with his spouse and the likelihood of a worsening status given evolving strokes as well as head bleed. Both herself and her son will present and spent time with the patient and they noted intention to contact other children and once everyone is present preference would be to withdraw care. In the interim we will transition per discussion patient to DNRCC status but continue his current intubated situation until they can see him and spend time with him. Discussed plan to discontinue the heparin drip given the head bleed understanding that he does have mechanical valve and that this certainly could have followed as well and she was amenable to this plan. Discussed CODE status at length including difference between FULL code, DNR-CCA and DNR-CC status. Following discussions about the differences in these status, requested DNR CC as noted with plans as noted above. Advanced Care Planning Face to Face Time: 20 minutes. Procedures Hospitalists Procedures: [id number] Advncd Care Plan 30 Min
[2022-08-02] VITALS (13 sets, daily range): BP systolic 92–104; BP diastolic 56–62; PULSE 84–103; RESP 14–23; TEMP 37.7; O2SAT 90–99
[2022-08-02] MEDS: LORazepam 2 MG/ML Syringe IV (06:39)
--- NOTE | 2022-08-02 08:23 | NURSING ---
extubated @0740, [id number] family @ bedside
--- NOTE | 2022-08-02 09:19 | EXP.PCM_ITS ---
Preliminary Cause of Preliminary Cause of Preliminary Cause of : Septic shock from an infected kidney stone Ischemic stroke with subarachnoid hemorrhage Seizures Date of Admission: 07/23/22 Date of : 08/02/22 Principle Diagnosis Problem List: Active and Suspected Problems (Updated 07/30/22 @ 16:[address] Benedict Lopez MD) Septic shock (Acute) Hydronephrosis with renal and ureteral calculous obstruction (Acute) GI (gastrointestinal bleed) (Acute) Acute hyperkalemia (Acute) ESRD on hemodialysis (Acute) Hospital Course Mr. Stevenson is a 67-year-old male who presented to the hospital with fatigue and dark black stools. He was presenting from dialysis for his end-stage renal disease at that time. Gastroenterology was involved and did an EGD which demonstrated an angiodysplastic lesion which was cauterized. He was placed on octreotide and IV PPI and his hemoglobin stabilized. Because of his history of mitral valve replacement paroxysmal A. fib he was also placed on a heparin drip. His condition deteriorated and he was found to be septic from infected kidney stone with MSSA. He progressed into septic shock requiring Levophed and was intubated on 07/30/2022. He steadily required increasing amounts of pressor support for his blood pressure. His renal function deteriorated and an attempt was made at dialysis. Overnight on he had a seizure, he was loaded with IV Keppra and taken down for CT brain which demonstrated progressive ischemic CVA as well as a subarachnoid hemorrhage. The heparin drip was discontinued at that time however the overnight physician as well as straightedge machine operator helper discussed with the family, advance care planning options and they decided to proceed with terminal extubation. He on 08/02/2022 at 0755. Visit Charges Inpatient E&M: 48109 Disch Hosp
[2022-08-02 09:43] LABS: Pathologist Review Reviewed
== END 2022-08-02 07:55 | DRG 377 ==
LOC: ED 10:07 → PCU 12:10 → ICU 07-30 12:38
PROVIDERS: Internal Medicine Critical Care Medicine; Internal Medicine Gastroenterology; Internal Medicine Nephrology; Nurse Practitioner Adult Health; Radiology Diagnostic Radiology; Student in an Organized Health Care Education/Training Program; Admitting Provider Internal Medicine; Emergency Provider Emergency Medicine; PCP Family Medicine; Visit Provider Family Medicine
PROC: 0DJ08ZZ Inspection of Upper Intestinal Tract, Via Natural or Artificial Opening Endoscopic (ICD-10-PCS; CPT 43235; principal; 2022-07-24 16:10)
DX: K31.811 Angiodysplasia of stomach and duodenum with bleeding (principal); R65.21 Severe sepsis with septic shock; J96.21 Acute and chronic respiratory failure with hypoxia; I60.9 Nontraumatic subarachnoid hemorrhage, unspecified; I63.9 Cerebral infarction, unspecified; A41.9 Sepsis, unspecified organism; G93.41 Metabolic encephalopathy; N18.6 End stage renal disease; I12.0 Hypertensive chronic kidney disease with stage 5 chronic kidney disease or end stage renal disease; I48.20 Chronic atrial fibrillation, unspecified; D62 Acute posthemorrhagic anemia; N13.6 Pyonephrosis; E11.22 Type 2 diabetes mellitus with diabetic chronic kidney disease; Z99.2 Dependence on renal dialysis; J44.9 Chronic obstructive pulmonary disease, unspecified; R56.9 Unspecified convulsions; K21.01 Gastro-esophageal reflux disease with esophagitis, with bleeding; D47.2 Monoclonal gammopathy; E87.5 Hyperkalemia; E03.9 Hypothyroidism, unspecified; M10.9 Gout, unspecified; I95.89 Other hypotension; B95.61 Methicillin susceptible Staphylococcus aureus infection as the cause of diseases classified elsewhere; Z20.822 Contact with and (suspected) exposure to COVID-19; Z66 Do not resuscitate; Z79.01 Long term (current) use of anticoagulants; Z79.890 Hormone replacement therapy; Z79.899 Other long term (current) drug therapy; Z87.891 Personal history of nicotine dependence
CPT/HCPCS: 31500; 31720; 36415; 36600; 50432; 70450; 71045; 71046; 74176; 80048; 80053; 80069; 82274; 82803; 82962; 83735; 84100; 84439; 84443; 84481; 84484; 84520; 85014; 85018; 85025; 85610; 85730; 86644; 86850; 86900; 86901; 86920; 86922; 87070; 87077; 87186; 87205; 87340; 87428; 90937; 93005; 93306; 94002; 94003; 94640; 94660; 94799; 97803; 99251; 99285; J7030; J7040; J7050; J7120; P9016; P9017; Q9957; A4216; C1751; C8929; G0257; G0463; J2405; J3010; J3490; Q5106